=== PATIENT | female | born 1960 | race Caucasian/White ===

== ENCOUNTER 2018-04-01 17:11 | Inpatient (IN) | payer OTHER ==
[2018-04-01] MEDS ORDERED: ASPIRIN 81 MG PO STA (17:29)
[2018-04-01] MEDS ORDERED: SODIUM CHLORIDE 0.9% 1,000 ML IV STA (17:29)
[2018-04-01] MEDS: LORazepam 2 MG/ML INJ IV STA ×2 (17:39→19:03)
--- NOTE | 2018-04-01 17:40 | ED ---
General Adult HPI - General Stated complaint: CHEST PAIN, ASIYA Time Seen by Provider: 04/01/18 17:21 Source: patient, RN notes reviewed Limitations: no limitations - History of Present Illness Initial comments: Patient is a pleasant 58-year-old female presenting to the emergency Department with complaints of shortness of breath and discomfort of her upper back. Patient states it feels like spasms. Patient states there is some discomfortable chest as well. Patient is unclear if she feels anxious or not. Discomfort is waxing and waning. No cough. Patient has felt hot and cold however unclear if she has had any fevers. No nausea vomiting. No diaphoresis. - Related Data Home Medications Medication Instructions Recorded Confirmed Divalproex [Depakote] 500 mg PO BID 10/30/15 04/01/18 Folic Acid 1 mg PO DAILY 10/30/15 04/01/18 Cyanocobalamin [Vitamin B-12] 500 mcg PO DAILY 04/01/18 04/01/18 Allergies Allergy/AdvReac Type Severity Reaction Status Date / Time No Known Allergies Allergy Verified 04/01/18 17:47 Review of Systems ROS Statement: Those systems with pertinent positive or pertinent negative responses have been documented in the HPI. ROS Other: All systems not noted in ROS Statement are negative. 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 Absent: chest wall tenderness Cardiovascular Exam: Present: regular rate, normal rhythm Expanded Peripheral pulses: 2+: Radial (R), Radial (L), Posterior Tibialis (R), Posterior Tibialis (L), Dorsalis Pedis (R), Dorsalis Pedis (L) GI/Abdominal exam: Present: soft. Absent: tenderness Extremities exam: Present: normal inspection. Absent: pedal edema, calf tenderness Neurological exam: Present: alert Psychiatric exam: Present: anxious Skin exam: Present: normal color Course Vital Signs 04/01/18 04/01/18 04/01/18 17:23 17:30 18:00 Temperature 98.3 F Pulse Rate 102 H Respiratory 24 24 Rate Blood Pressure 187/110 162/117 O2 Sat by Pulse 95 Oximetry 04/01/18 04/01/18 04/01/18 18:20 18:40 19:29 Temperature Pulse Rate 95 Respiratory 15 Rate Blood Pressure 164/100 155/110 170/105 O2 Sat by Pulse 93 L Oximetry 04/01/18 19:32 Temperature Pulse Rate 99 Respiratory 16 Rate Blood Pressure 158/95 O2 Sat by Pulse 97 Oximetry - Reevaluation(s) Reevaluation #1: 04/01/18 19:30 Called by radiologist for large pneumothorax possible tension component. Patient transferred, day and chest tube placed immediately. EKG Findings - EKG Comments: EKG Findings:: Normal sinus rhythm 95. MN 116. QRS 88. QT 338. QTC 424. Normal axis. Right atrial enlargement. Normal QRS. Nonspecific ST-T. Procedures - Chest Tube Insertion Consent Obtained: emergent situation Side of Procedure: right Indication: Pneumothorax Placed on monitor/pulse oximetry: Yes Site Prep: Povidone-Iodine Local Anesthesia: Lidocaine 1% Insertion Site: 5th Intercostal Space (Anterior axillary line) Scalpel: #10 Open into Pleural Space Using: Trocar, Emilia Clamp Tube Size (Kyrgyz): 28 Returns: Air Sutured in Place: Yes Type of Suture: Nylon Dressing Applied: Petroleum Gauze Attached to Suction: Yes Repeat X-ray Results: Lung Inflated Patient Tolerated Procedure: well, no complications Medical Decision Making - Medical Decision Making Patient reevaluated and updated. Case was discussed with Dr. Zheng, covering for hospital call, who will admit. Case also discussed with Dr. Garcia who requests consult with cardiothoracic surgeon. He states he can be consult later if needed. Case was also discussed with Dr. powell, who will consult. - Lab Data Result diagrams: 04/01/18 17:35 04/01/18 17:35 Lab Results 04/01/18 04/01/18 04/01/18 Range/Units 17:35 17:35 17:35 WBC 13.3 H (3.8-10.6) k/uL RBC 4.74 (3.80-5.40) m/uL Hgb 16.4 H (11.4-16.0) gm/dL Hct 47.5 H (34.0-46.0) % MCV 100.3 H (80.0-100.0) fL MCH 34.6 (25.0-35.0) pg MCHC 34.5 (31.0-37.0) g/dL RDW 12.0 (11.5-15.5) % Plt Count 247 (150-450) k/uL Neutrophils % 81 % Lymphocytes % 11 % Monocytes % 6 % Eosinophils % 1 % Basophils % 0 % Neutrophils # 10.7 H (1.3-7.7) k/uL Lymphocytes # 1.5 (1.0-4.8) k/uL Monocytes # 0.7 (0-1.0) k/uL Eosinophils # 0.1 (0-0.7) k/uL Basophils # 0.0 (0-0.2) k/uL PT (9.0-12.0) sec INR (<1.2) APTT (22.0-30.0) sec D-Dimer (<0.60) mg/L FEU Sodium 128 L (137-145) mmol/L Potassium 4.6 (3.5-5.1) mmol/L Chloride 91 L (98-107) mmol/L Carbon Dioxide 27 (22-30) mmol/L Anion Gap 10 mmol/L BUN 6 L (7-17) mg/dL Creatinine 0.48 L (0.52-1.04) mg/dL Est GFR (CKD-EPI)AfAm >90 (>60 ml/min/1.73 sqM) Est GFR (CKD-EPI)NonAf >90 (>60 ml/min/1.73 sqM) Glucose 102 H (74-99) mg/dL Calcium 10.1 (8.4-10.2) mg/dL Magnesium 1.8 (1.6-2.3) mg/dL Total Bilirubin 0.8 (0.2-1.3) mg/dL AST 43 H (14-36) U/L ALT 27 (9-52) U/L Alkaline Phosphatase 105 (38-126) U/L Total Creatine Kinase 165 H (30-135) U/L CK-MB (CK-2) 2.8 H (0.0-2.4) ng/mL CK-MB (CK-2) Rel Index 1.7 Troponin I <0.012 (0.000-0.034) ng/mL NT-Pro-B Natriuret Pep pg/mL Total Protein 8.0 (6.3-8.2) g/dL Albumin 5.0 (3.5-5.0) g/dL Amylase 41 (30-110) U/L Lipase 30 (23-300) U/L 04/01/18 04/01/18 Range/Units 17:35 17:35 WBC (3.8-10.6) k/uL RBC (3.80-5.40) m/uL Hgb (11.4-16.0) gm/dL Hct (34.0-46.0) % MCV (80.0-100.0) fL MCH (25.0-35.0) pg MCHC (31.0-37.0) g/dL RDW (11.5-15.5) % Plt Count (150-450) k/uL Neutrophils % % Lymphocytes % % Monocytes % % Eosinophils % % Basophils % % Neutrophils # (1.3-7.7) k/uL Lymphocytes # (1.0-4.8) k/uL Monocytes # (0-1.0) k/uL Eosinophils # (0-0.7) k/uL Basophils # (0-0.2) k/uL PT 9.9 (9.0-12.0) sec INR 0.9 (<1.2) APTT 28.0 (22.0-30.0) sec D-Dimer <0.17 (<0.60) mg/L FEU Sodium (137-145) mmol/L Potassium (3.5-5.1) mmol/L Chloride (98-107) mmol/L Carbon Dioxide (22-30) mmol/L Anion Gap mmol/L BUN (7-17) mg/dL Creatinine (0.52-1.04) mg/dL Est GFR (CKD-EPI)AfAm (>60 ml/min/1.73 sqM) Est GFR (CKD-EPI)NonAf (>60 ml/min/1.73 sqM) Glucose (74-99) mg/dL Calcium (8.4-10.2) mg/dL Magnesium (1.6-2.3) mg/dL Total Bilirubin (0.2-1.3) mg/dL AST (14-36) U/L ALT (9-52) U/L Alkaline Phosphatase (38-126) U/L Total Creatine Kinase (30-135) U/L CK-MB (CK-2) (0.0-2.4) ng/mL CK-MB (CK-2) Rel Index Troponin I (0.000-0.034) ng/mL NT-Pro-B Natriuret Pep 417 pg/mL Total Protein (6.3-8.2) g/dL Albumin (3.5-5.0) g/dL Amylase (30-110) U/L Lipase (23-300) U/L - Radiology Data Radiology results: image reviewed (Chest x-ray shows pneumothorax on the right with tension component.) Critical Care Time Critical Care Time: Yes Total Critical Care Time: 32 Disposition Clinical Impression: Spontaneous pneumothorax Disposition: ADMITTED IP TO THIS [facility] Condition: Serious Referrals: Kelsea Veliz DO [Primary Care Provider] - 1-2 days Decision Time: 19:31
[2018-04-01 18:02] LABS: ALT 27 U/L (9-52); AST 43 U/L (14-36); Alkaline Phosphatase 105 U/L (38-126); Amylase 41 U/L (30-110); Anion Gap 10 mmol/L; Blood Urea Nitrogen 6 mg/dL (7-17); Calcium 10.1 mg/dL (8.4-10.2); Carbon Dioxide 27 mmol/L (22-30); Chloride 91 mmol/L (98-107); Glucose 102 mg/dL (74-99); Lipase 30 U/L (23-300); Magnesium 1.8 mg/dL (1.6-2.3); Potassium 4.6 mmol/L (3.5-5.1); Sodium 128 mmol/L (137-145); Total Bilirubin 0.8 mg/dL (0.2-1.3)
[2018-04-01 18:03] LABS: Creatine Kinase 165 U/L (30-135)
[2018-04-01 18:07] LABS: Basophils % (A) 0 %; Eosinophils # (A) 0.1 k/uL (0-0.7); Eosinophils % (A) 1 %; HCT 47.5 % (34.0-46.0); HGB 16.4 gm/dL (11.4-16.0); Lymphocytes # (A) 1.5 k/uL (1.0-4.8); Lymphocytes % (A) 11 %; MCH 34.6 pg (25.0-35.0); MCHC 34.5 g/dL (31.0-37.0); MCV 100.3 fL (80.0-100.0); Mean Platelet Volume 7.8; Monocytes # (A) 0.7 k/uL (0-1.0); Monocytes % (A) 6 %; Neutrophils # (A) 10.7 k/uL (1.3-7.7); Neutrophils % (A) 81 %; Platelet Count 247 k/uL (150-450); RBC 4.74 m/uL (3.80-5.40); WBC 13.3 k/uL (3.8-10.6)
[2018-04-01 18:08] LABS: D-Dimer <0.17 mg/L FEU (<0.60); INR 0.9 (<1.2); Prothrombin Time 9.9 sec (9.0-12.0)
[2018-04-01 18:16] LABS: Creatine Kinase MB 2.8 ng/mL (0.0-2.4); Troponin I <0.012 ng/mL (0.000-0.034)
--- NOTE | 2018-04-01 18:55 | XR ---
EXAMINATION: XR chest 2V DATE AND TIME: 04/01/2018 6:09 PM CLINICAL INDICATION: PHH; Chest Pain TECHNIQUE: Departmental protocol COMPARISON: None FINDINGS: There is a large right pneumothorax with mild shift of midline structures leftward. There is compress lindy atelectasis of the right lung parenchyma, near-complete. The left lung is clear. The left pleural space appears negative. Cardiomediastinal silhouette and bones and soft tissues are unremarkable. Results called at 6:51 PM to the ordering physician to ensure intact communications. IMPRESSION: TENSION PNEUMOTHORAX.
[2018-04-01] MEDS ORDERED: HYDROmorphone 1 MG/ML 1 ML SYRINGE IVP STA ×2 (19:50)
[2018-04-01] MEDS ORDERED: LIDOCAINE 1% INJ 10MG/ML (20 ML MDV) SQ ONE (19:53)
[2018-04-01] MEDS ORDERED: NALOXONE 0.4 MG/ML 1 ML VIAL IV PRN (19:58)
[2018-04-01] MEDS ORDERED: SODIUM CHLORIDE 0.9% 1,000 ML IV SCH (20:00)
[2018-04-01] MEDS ORDERED: HYDROmorphone 0.5 MG/0.5 ML SYRINGE IVP PRN (20:03)
--- NOTE | 2018-04-01 20:07 | XR ---
EXAMINATION: XR chest 1V portable DATE AND TIME: 04/01/2018 7:32 PM CLINICAL INDICATION: PHH; Pain TECHNIQUE: Departmental protocol COMPARISON: 04/01/2018 at 6:14 PM FINDINGS: Interval placement of right chest 2, with near complete removal of the right-sided pneumoth orax seen on the prior study. A mild pneumothorax can be visualized presently, measuring subcentimete r in the right apex and proximally 1-2 cm at the right costophrenic angle. Follow-up radiographs will clarify. There is no mediastinal shift. No new findings. IMPRESSION: Post chest tube radiograph: INTERVAL NEAR-RESOLUTION OF THE RIGHT PNEUMOTHORAX.
[2018-04-01] MEDS: DIVALPROEX 500 MG TABLET.DR PO SCH (23:01)
[2018-04-02] MEDS: HYDROmorphone 1 MG/ML 1 ML SYRINGE IVP PRN
[2018-04-02 05:47] VITALS: BMI 19.5
[2018-04-02] MEDS: DIVALPROEX 500 MG TABLET.DR PO SCH ×2 (07:50→21:25)
[2018-04-02] MEDS: KETOROLAC 30 MG/ML 1 ML VIAL IVP SCH ×3 (07:50→20:02)
--- NOTE | 2018-04-02 08:21 | XR ---
EXAMINATION TYPE: XR chest 1V portable DATE OF EXAM: 04/02/2018 COMPARISON: 04/01/2018 HISTORY: Spontaneous pneumothorax TECHNIQUE: Single frontal view of the chest is obtained. FINDINGS: Right-sided thoracostomy tube is present. There is a small apical right pneumothorax remai francisco estimated at approximately 5-10%. Minimal right basilar atelectasis is seen of the hemidiaphragm . Remainder the lungs are clear. No left-sided pneumothorax. Cardia mediastinal silhouette is within normal limits. Osseous structures are grossly intact. IMPRESSION: Small residual right apical pneumothorax status post right thoracostomy tube placement.
--- NOTE | 2018-04-02 10:37 | P.GSCN ---
<Joi Duron - Last Filed: 04/02/18 10:24> History of Present Illness Consult date: 04/02/18 Reason for Consult: Right-sided spontaneous pneumothorax, surgical management. Requesting physician: Jhonatan Early History of present illness: This is a 58-year-old active female patient who follows with Dr. Kelsea Veliz on an outpatient basis although she does state she doesn't go to the doctor very often. She has a previous medical history of plasma cell granuloma with resection in 2008, previous tobacco dependence with cessation in 2008 but prior to that smoked 1-1/2-2 packs a day for 31 years, daily EtOH use, and tonsillectomy. Apparently she was at home yesterday doing nothing in particular , no forceful coughing, no sneezing when she began to have significant shortness of breath and chest pain as well as right upper back pain. She denied any nausea, vomiting, syncope. She reported to [facility] emergency room. X-ray was completed demonstrating significant right-sided pneumothorax. Chest tube was inserted by the emergency room physicians with almost complete re-expansion of her right lung. Dr. Senior from cardiothoracic surgery was consulted regarding pneumothorax management. Review of Systems Review of systems completed and was negative except as noted. 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 Past Anesthesia/Blood Transfusion Reactions: No Reported Reaction Past Psychological History: No Psychological Hx Reported Smoking Status: Former smoker Past Alcohol Use History: Daily Past Drug Use History: None Reported Medications and Allergies Home Medications Medication Instructions Recorded Confirmed Type Divalproex [Depakote] 500 mg PO BID 10/30/15 04/01/18 History Folic Acid 1 mg PO DAILY 10/30/15 04/01/18 History Cyanocobalamin [Vitamin B-12] 500 mcg PO DAILY 04/01/18 04/01/18 History Allergies Allergy/AdvReac Type Severity Reaction Status Date / Time No Known Allergies Allergy Verified 04/01/18 17:47 Surgical - Exam Vital Signs Temp Pulse Resp BP Pulse Ox 98.3 F 102 H 24 187/110 95 04/01/18 17:23 04/01/18 17:23 04/01/18 17:23 04/01/18 17:23 04/01/18 17:23 - General Mild pain well developed, well nourished, no distress - Eyes PERRL, normal ocular movement - ENT no hearing loss - Neck no masses, no bruits, trachea midline - Respiratory Lungs sounds diminished bilaterally. Respirations even, nonlabored. Currently on 2 L nasal cannula with oxygen saturation 100%. Right-sided pleural chest tube present to continuous wall suction, minimal serosanguineous output, no air leak present. - Cardiovascular S1, S2 present. Regular rate and rhythm. Palpable peripheral pulses bilaterally. No edema present. No calf pain or tenderness noted. - Abdomen Abdomen: soft, non tender, bowel sounds - Genitourinary Deferred - Rectum Deferred - Integumentary no rash, no growths, no abnormal pigmentation - Neurologic normal coordination, normal sensation - Musculoskeletal normal posture - Psychiatric oriented to time, oriented to person, oriented to place, speech is normal, memory intact Results - Labs 04/01/18 17:35 04/01/18 17:35 Abnormal Lab Results - Last 24 Hours (Table) 04/01/18 04/01/18 04/01/18 Range/Units 17:35 17:35 17:35 WBC 13.3 H (3.8-10.6) k/uL Hgb 16.4 H (11.4-16.0) gm/dL Hct 47.5 H (34.0-46.0) % MCV 100.3 H (80.0-100.0) fL Neutrophils # 10.7 H (1.3-7.7) k/uL Sodium 128 L (137-145) mmol/L Chloride 91 L (98-107) mmol/L BUN 6 L (7-17) mg/dL Creatinine 0.48 L (0.52-1.04) mg/dL Glucose 102 H (74-99) mg/dL AST 43 H (14-36) U/L Total Creatine Kinase 165 H (30-135) U/L CK-MB (CK-2) 2.8 H (0.0-2.4) ng/mL Diabetes panel 04/01/18 Range/Units 17:35 Sodium 128 L (137-145) mmol/L Potassium 4.6 (3.5-5.1) mmol/L Chloride 91 L (98-107) mmol/L Carbon Dioxide 27 (22-30) mmol/L BUN 6 L (7-17) mg/dL Creatinine 0.48 L (0.52-1.04) mg/dL Glucose 102 H (74-99) mg/dL Calcium 10.1 (8.4-10.2) mg/dL AST 43 H (14-36) U/L ALT 27 (9-52) U/L Alkaline Phosphatase 105 (38-126) U/L Total Protein 8.0 (6.3-8.2) g/dL Albumin 5.0 (3.5-5.0) g/dL Calcium panel 04/01/18 Range/Units 17:35 Calcium 10.1 (8.4-10.2) mg/dL Albumin 5.0 (3.5-5.0) g/dL Pituitary panel 04/01/18 Range/Units 17:35 Sodium 128 L (137-145) mmol/L Potassium 4.6 (3.5-5.1) mmol/L Chloride 91 L (98-107) mmol/L Carbon Dioxide 27 (22-30) mmol/L BUN 6 L (7-17) mg/dL Creatinine 0.48 L (0.52-1.04) mg/dL Glucose 102 H (74-99) mg/dL Calcium 10.1 (8.4-10.2) mg/dL Adrenal panel 04/01/18 Range/Units 17:35 Sodium 128 L (137-145) mmol/L Potassium 4.6 (3.5-5.1) mmol/L Chloride 91 L (98-107) mmol/L Carbon Dioxide 27 (22-30) mmol/L BUN 6 L (7-17) mg/dL Creatinine 0.48 L (0.52-1.04) mg/dL Glucose 102 H (74-99) mg/dL Calcium 10.1 (8.4-10.2) mg/dL Total Bilirubin 0.8 (0.2-1.3) mg/dL AST 43 H (14-36) U/L ALT 27 (9-52) U/L Alkaline Phosphatase 105 (38-126) U/L Total Protein 8.0 (6.3-8.2) g/dL Albumin 5.0 (3.5-5.0) g/dL - Imaging Chest x-ray: report reviewed, image reviewed Assessment and Plan (1) Tobacco dependence in remission Current Visit: No Status: Resolved Code(s): F17.201 - NICOTINE DEPENDENCE, UNSPECIFIED, IN REMISSION SNOMED Code(s): 001345404 (2) Alcohol use Current Visit: Yes Status: Chronic Code(s): Z78.9 - OTHER SPECIFIED HEALTH STATUS SNOMED Code(s): 599410 (3) Spontaneous pneumothorax Current Visit: Yes Status: Acute Code(s): J93.83 - OTHER PNEUMOTHORAX SNOMED Code(s): 49468395 Plan: The patient was seen and examined at the bedside with Dr. Simon. Chart/ diagnostics were reviewed in detail. Currently there is no air leak in the right-sided pleural chest tube and the lung has almost completely re-expandedx. We placed the chest tube to waterseal. Repeat chest x-ray in the morning, if stable will discontinue chest tube tomorrow. Toradol added to her pain medication regimen for better control. Wean O2 as tolerated. Hep-Lock IV. Increase activity ambulate as tolerated. Incentive spirometry was ordered and should be encouraged 10 times every hour while awake. As this is the first incidence of spontaneous pneumothorax the appropriate treatment is chest tube placement. Should patient develop another pneumothorax in the future surgical management would be offered to the patient. This was discussed in detail with the patient and her , all questions were answered. Continue medical management per primary care service. More recommendations to follow. Thank you for this consult. Please call us with any questions. Time with Patient: Greater than 30 <Marek Simon R - Last Filed: 04/02/18 14:48> Surgical - Exam Vital Signs Temp Pulse Resp BP Pulse Ox 98.3 F 102 H 24 187/110 95 04/01/18 17:23 04/01/18 17:23 04/01/18 17:23 04/01/18 17:23 04/01/18 17:23 Results - Labs 04/01/18 17:35 04/01/18 17:35 Abnormal Lab Results - Last 24 Hours (Table) 04/01/18 04/01/18 04/01/18 Range/Units 17:35 17:35 17:35 WBC 13.3 H (3.8-10.6) k/uL Hgb 16.4 H (11.4-16.0) gm/dL Hct 47.5 H (34.0-46.0) % MCV 100.3 H (80.0-100.0) fL Neutrophils # 10.7 H (1.3-7.7) k/uL Sodium 128 L (137-145) mmol/L Chloride 91 L (98-107) mmol/L BUN 6 L (7-17) mg/dL Creatinine 0.48 L (0.52-1.04) mg/dL Glucose 102 H (74-99) mg/dL AST 43 H (14-36) U/L Total Creatine Kinase 165 H (30-135) U/L CK-MB (CK-2) 2.8 H (0.0-2.4) ng/mL Diabetes panel 04/01/18 Range/Units 17:35 Sodium 128 L (137-145) mmol/L Potassium 4.6 (3.5-5.1) mmol/L Chloride 91 L (98-107) mmol/L Carbon Dioxide 27 (22-30) mmol/L BUN 6 L (7-17) mg/dL Creatinine 0.48 L (0.52-1.04) mg/dL Glucose 102 H (74-99) mg/dL Calcium 10.1 (8.4-10.2) mg/dL AST 43 H (14-36) U/L ALT 27 (9-52) U/L Alkaline Phosphatase 105 (38-126) U/L Total Protein 8.0 (6.3-8.2) g/dL Albumin 5.0 (3.5-5.0) g/dL Calcium panel 04/01/18 Range/Units 17:35 Calcium 10.1 (8.4-10.2) mg/dL Albumin 5.0 (3.5-5.0) g/dL Pituitary panel 04/01/18 Range/Units 17:35 Sodium 128 L (137-145) mmol/L Potassium 4.6 (3.5-5.1) mmol/L Chloride 91 L (98-107) mmol/L Carbon Dioxide 27 (22-30) mmol/L BUN 6 L (7-17) mg/dL Creatinine 0.48 L (0.52-1.04) mg/dL Glucose 102 H (74-99) mg/dL Calcium 10.1 (8.4-10.2) mg/dL Adrenal panel 04/01/18 Range/Units 17:35 Sodium 128 L (137-145) mmol/L Potassium 4.6 (3.5-5.1) mmol/L Chloride 91 L (98-107) mmol/L Carbon Dioxide 27 (22-30) mmol/L BUN 6 L (7-17) mg/dL Creatinine 0.48 L (0.52-1.04) mg/dL Glucose 102 H (74-99) mg/dL Calcium 10.1 (8.4-10.2) mg/dL Total Bilirubin 0.8 (0.2-1.3) mg/dL AST 43 H (14-36) U/L ALT 27 (9-52) U/L Alkaline Phosphatase 105 (38-126) U/L Total Protein 8.0 (6.3-8.2) g/dL Albumin 5.0 (3.5-5.0) g/dL Assessment and Plan Assessment: 58 yof w Rt sided spontaneous pneumothorax, s/p CT plcmt in ER. Lung well expanded now. No previous h/o ptx in past. No air leak at this time. Met with and examined patient, agree w [employer] note as documented. Natural h/o ptx d/w pt and . Conservative mgmt at present.
--- NOTE | 2018-04-02 11:36 | P.CNPUL ---
History of Present Illness Consult date: 04/02/18 Requesting physician: Major Zheng Reason for consult: dyspnea, abnormal CXR/CT Chief complaint: Shortness of breath, right shoulder pain History of present illness: This is a very pleasant 58-year-old female patient who follows with Dr. Horton as her primary care physician. History of seizure disorder with previous craniotomy in 2008. She does have a 25+ year smoking history however quit 10 years ago. Daily alcohol consumption. She presented here to the emergency room yesterday with complaints of shortness of breath and right shoulder and chest pain. She is found to have a large spontaneous pneumothorax. Status post chest tube insertion. She is seen today in consultation on the regular medical floor. She is awake and alert in no acute distress. Chest tube remains in place. There is currently a leak. Placed to waterseal. Cardiothoracic is following. She is currently maintaining good O2 saturations in the 90s on room air. She's afebrile. Hemodynamically stable. White count 13.3. Hemoglobin 16.4. MCV 100.3. Sodium 128. Creatinine 0.48. AST 43. Review of Systems Constitutional: Denies chills, Denies fever Eyes: denies blurred vision, denies decreased vision Ears: deny: decreased hearing Ears, nose, mouth and throat: Denies headache, Denies sore throat Cardiovascular: Reports dyspnea on exertion, Reports shortness of breath Respiratory: Reports dyspnea, Reports pain Gastrointestinal: Denies abdominal pain, Denies diarrhea, Denies nausea, Denies vomiting Genitourinary: Denies dysuria, Denies hematuria Musculoskeletal: Denies myalgias Integumentary: Denies pruritus, Denies rash Neurological: Denies numbness, Denies weakness Psychiatric: Denies anxiety, Denies depression Endocrine: Denies fatigue, Denies weight change Hematologic/Lymphatic: Reports as per HPI Allergic/Immunologic: Reports as per HPI 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 History of Any Multi-Drug Resistant Organisms: None Reported Past Surgical History: Tonsillectomy Additional Past Surgical History / Comment(s): biopsy, craniomtomy to remov tumor from brain 2008 Past Anesthesia/Blood Transfusion Reactions: No Reported Reaction Past Psychological History: No Psychological Hx Reported Smoking Status: Former smoker Past Alcohol Use History: Daily Past Drug Use History: None Reported Medications and Allergies Home Medications Medication Instructions Recorded Confirmed Type Divalproex [Depakote] 500 mg PO BID 10/30/15 04/01/18 History Folic Acid 1 mg PO DAILY 10/30/15 04/01/18 History Cyanocobalamin [Vitamin B-12] 500 mcg PO DAILY 04/01/18 04/01/18 History Allergies Allergy/AdvReac Type Severity Reaction Status Date / Time No Known Allergies Allergy Verified 04/01/18 17:47 Physical Exam Vitals: Vital Signs Temp Pulse Pulse Resp BP BP Pulse Ox 04/02/18 10:10 18 04/02/18 07:58 12 04/02/18 07:33 97.9 F 79 18 158/88 100 04/01/18 21:52 97.5 F L 77 12 170/96 100 04/01/18 20:15 83 14 163/96 100 04/01/18 19:32 99 16 158/95 97 04/01/18 19:29 95 15 170/105 93 L 04/01/18 19:03 93 12 177/111 91 L 04/01/18 18:40 155/110 04/01/18 18:20 164/100 04/01/18 18:00 162/117 04/01/18 17:30 24 04/01/18 17:23 98.3 F 102 H 24 187/110 95 Intake and Output 04/01/18 04/02/18 04/02/18 22:59 06:59 14:59 Other: # Voids 2 Weight 49.895 kg - Constitutional General appearance: disheveled, no acute distress, thin - EENT Eyes: EOMI, PERRLA ENT: hearing grossly normal Ears: bilateral: normal - Neck Neck: normal ROM Carotids: bilateral: upstroke normal Thyroid: bilateral: normal size - Respiratory Respiratory: right: diminished - Cardiovascular Rhythm: regular Heart sounds: normal: S1, S2 - Gastrointestinal General gastrointestinal: no organomegaly, soft, no tenderness - Integumentary Integumentary: normal turgor - Neurologic Neurologic: CNII-XII intact - Musculoskeletal Musculoskeletal: gait normal - Psychiatric Psychiatric: A&O x's 3, appropriate affect, intact judgment & insight Results - Laboratory Findings CBC and BMP: 04/01/18 17:35 04/01/18 17:35 PT/INR, D-dimer PT 9.9 sec (9.0-12.0) 04/01/18 17:35 INR 0.9 (<1.2) 04/01/18 17:35 D-Dimer <0.17 mg/L FEU (<0.60) 04/01/18 17:35 Abnormal lab findings: Abnormal Labs 04/01/18 04/01/18 04/01/18 17:35 17:35 17:35 WBC 13.3 H Hgb 16.4 H Hct 47.5 H MCV 100.3 H Neutrophils # 10.7 H Sodium 128 L Chloride 91 L BUN 6 L Creatinine 0.48 L Glucose 102 H AST 43 H Total Creatine Kinase 165 H CK-MB (CK-2) 2.8 H - Diagnostic Findings Chest x-ray: image reviewed Assessment and Plan Assessment: Impression: #1 Dyspnea secondary to a large right spontaneous pneumothorax. Status post right-sided chest tube placement. #2 History of chronic tobacco dependence of approximately 25 years however quit 10 years ago. #3 Daily alcohol use. #4 History of brain tumor status post craniotomy. #5 History of seizures. #6 Hyponatremia suspect secondary to alcohol consumption. Plan: The patient was seen and evaluated by Dr. Garcia. Chest x-ray and labs reviewed. Right-sided chest tube still with a small air leak today. Currently on water seal. Plan for repeat chest x-ray in the a.m. Cardiothoracic are following. May require surgical intervention if any recurrence in the future. She could be followed up in our office or rigidity performed full pulmonary function testing and possible computed tomography scan of the chest to evaluate the severity of her COPD rule out any significant bleb formation. Encourage increased use the incentive spirometer. Increase activity as tolerated. Observe for alcohol withdrawal symptoms. We will continue to follow and make further recommendations based on her clinical status. I, the cosigning physician, performed a history & physical examination of the patient. Lungs sounds diminished more so on the right base. Maintaining good O2 saturations in the 90s on room air. I discussed the assessment and plan of care with my nurse practitioner, Swati Dennis. I attest to the above note as dictated by her. Time with Patient: Greater than 30
--- NOTE | 2018-04-02 13:04 | P.HPIM ---
History of Present Illness 58-year-old female with extensive smoking history 25+ years smoking history quit 10 years ago never was diagnosed with COPD came in with complaints of chest pain, severe sharp pleuritic in nature along with severe shortness of breath progressively worsened over day yesterday patient is found to have large right-sided pneumothorax patient had a chest tube which was now underwater seal patient has right-sided chest tube. Repeat chest x-ray shows significant improvement in the pneumothorax. Patient does drink alcohol on a daily basis presently appears to have mild withdrawals patient is on Ativan CIWA protocol patient drinks about 4 beers per day. Patient has elevated MCV from my alcohol abuse. She is chest pain significantly improved as mild discomfort due to chest tube. She was a little denied any short of breath cough. Review of Systems REVIEW OF SYSTEMS: CONSTITUTIONAL: No fever, no malaise, no fatigue. HEENT: No recent visual problems or hearing problems. Denied any sore throat. CARDIOVASCULAR: No orthopnea, PND, no palpitations, no syncope. PULMONARY: no cough, no hemoptysis. GASTROINTESTINAL: No diarrhea, no nausea, no vomiting, no abdominal pain. NEUROLOGICAL: No headaches, no weakness, no numbness. HEMATOLOGICAL: Denies any bleeding or petechiae. GENITOURINARY: Denies any burning micturition, frequency, or urgency. MUSCULOSKELETAL/RHEUMATOLOGICAL: Denies any joint pain, swelling, or any muscle pain. ENDOCRINE: Denies any polyuria or polydipsia. The rest of the 14-point review of systems is negative. 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 History of Any Multi-Drug Resistant Organisms: None Reported Past Surgical History: Tonsillectomy Additional Past Surgical History / Comment(s): biopsy, craniomtomy to remov tumor from brain 2008 Past Anesthesia/Blood Transfusion Reactions: No Reported Reaction Past Psychological History: No Psychological Hx Reported Smoking Status: Former smoker Past Alcohol Use History: Daily Past Drug Use History: None Reported Medications and Allergies Home Medications Medication Instructions Recorded Confirmed Type Divalproex [Depakote] 500 mg PO BID 10/30/15 04/01/18 History Folic Acid 1 mg PO DAILY 10/30/15 04/01/18 History Cyanocobalamin [Vitamin B-12] 500 mcg PO DAILY 04/01/18 04/01/18 History Allergies Allergy/AdvReac Type Severity Reaction Status Date / Time No Known Allergies Allergy Verified 04/01/18 17:47 Physical Exam Vitals: Vital Signs Temp Pulse Pulse Resp BP BP Pulse Ox 04/02/18 10:10 18 04/02/18 07:58 12 04/02/18 07:33 97.9 F 79 18 158/88 100 04/01/18 21:52 97.5 F L 77 12 170/96 100 04/01/18 20:15 83 14 163/96 100 04/01/18 19:32 99 16 158/95 97 04/01/18 19:29 95 15 170/105 93 L 04/01/18 19:03 93 12 177/111 91 L 04/01/18 18:40 155/110 04/01/18 18:20 164/100 04/01/18 18:00 162/117 04/01/18 17:30 24 04/01/18 17:23 98.3 F 102 H 24 187/110 95 Intake and Output 04/01/18 04/02/18 04/02/18 22:59 06:59 14:59 Other: # Voids 2 Weight 49.895 kg PHYSICAL EXAMINATION: GENERAL: The patient is alert and oriented x3, not in any acute distress. Well developed, well nourished. HEENT: Pupils are round and equally reacting to light. EOMI. No scleral icterus. No conjunctival pallor. Normocephalic, atraumatic. No pharyngeal erythema. No thyromegaly. CARDIOVASCULAR: S1 and S2 present. No murmurs, rubs, or gallops. PULMONARY: Chest is clear to auscultation, no wheezing or crackles. ABDOMEN: Soft, nontender, nondistended, normoactive bowel sounds. No palpable organomegaly. MUSCULOSKELETAL: No joint swelling or deformity. EXTREMITIES: No cyanosis, clubbing, or pedal edema. NEUROLOGICAL: Gross neurological examination did not reveal any focal deficits. SKIN: No rashes. Results CBC & Chem 7: 04/01/18 17:35 04/01/18 17:35 Labs: Abnormal Lab Results - Last 24 Hours (Table) 04/01/18 04/01/18 04/01/18 Range/Units 17:35 17:35 17:35 WBC 13.3 H (3.8-10.6) k/uL Hgb 16.4 H (11.4-16.0) gm/dL Hct 47.5 H (34.0-46.0) % MCV 100.3 H (80.0-100.0) fL Neutrophils # 10.7 H (1.3-7.7) k/uL Sodium 128 L (137-145) mmol/L Chloride 91 L (98-107) mmol/L BUN 6 L (7-17) mg/dL Creatinine 0.48 L (0.52-1.04) mg/dL Glucose 102 H (74-99) mg/dL AST 43 H (14-36) U/L Total Creatine Kinase 165 H (30-135) U/L CK-MB (CK-2) 2.8 H (0.0-2.4) ng/mL Thrombosis Risk Factor Assmnt - Choose All That Apply Any of the Below Risk Factors Present?: Yes Each Factor Represents 1 point: Age 41-60 years Other Risk Factors: No Thrombosis Risk Factor Assessment Total Risk Factor Score: 1 Thrombosis Risk Factor Assessment Level: Low Risk Assessment and Plan Plan: -Large right-sided pneumothorax: Patient is status post chest tube placement patient may have emphysema which was never diagnosed and may have ruptured a pleural bleb. Patient is feeling well at this time. 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: Patient will be started on IV fluids will recheck the basic metabolic profile tomorrow -Macrocytosis: Secondary to alcohol abuse patient will be started on thiamine multivitamin supplementation -Alcohol withdrawal: Patient will be started on CIWA protocol patient is willing to quit alcohol -Elevated hematocrit: Secondary to hemoconcentration expected to improve with IV fluids -Leukocytosis reactive secondary to pneumothorax
[2018-04-02] MEDS: SODIUM CHLORIDE 0.9% 1,000 ML IV SCH ×2 (16:26→22:14)
[2018-04-03] MEDS: KETOROLAC 30 MG/ML 1 ML VIAL IVP SCH ×5 (00:35→23:50)
[2018-04-03] MEDS: DIVALPROEX 500 MG TABLET.DR PO SCH ×2 (08:02→22:03)
[2018-04-03] MEDS: SODIUM CHLORIDE 0.9% 1,000 ML IV SCH ×2 (08:10→22:11)
--- NOTE | 2018-04-03 08:40 | XR ---
EXAMINATION TYPE: XR chest 2V DATE OF EXAM: 04/03/2018 COMPARISON: Prior chest x-ray 04/02/2018 HISTORY: Chest tube, pneumothorax TECHNIQUE: Frontal and lateral views of the chest are obtained. FINDINGS: Patient is rotated. Findings similar to prior exam. Small apical pneumothorax on the right is noted, there is right-sided chest tube. There is blunting of the right costophrenic angle, overly ing subcutaneous emphysema. Heart is stable. Left lung unchanged. IMPRESSION: Apical right pneumothorax, chest tube in place. There may be small effusion and associat ed basilar atelectasis. Follow-up is recommended.
[2018-04-03 08:56] LABS: Anion Gap 5 mmol/L; Blood Urea Nitrogen 6 mg/dL (7-17); Calcium 9.3 mg/dL (8.4-10.2); Carbon Dioxide 29 mmol/L (22-30); Chloride 99 mmol/L (98-107); Glucose 87 mg/dL (74-99); Potassium 4.4 mmol/L (3.5-5.1); Sodium 133 mmol/L (137-145)
[2018-04-03 09:06] LABS: HCT 39.9 % (34.0-46.0); HGB 13.8 gm/dL (11.4-16.0); MCH 35.8 pg (25.0-35.0); MCHC 34.5 g/dL (31.0-37.0); MCV 103.6 fL (80.0-100.0); Macrocytosis Slight; Mean Platelet Volume 7.5; Platelet Count 193 k/uL (150-450); RBC 3.85 m/uL (3.80-5.40); RDW 11.9 % (11.5-15.5); WBC 7.8 k/uL (3.8-10.6)
--- NOTE | 2018-04-03 12:04 | P.PN ---
Subjective Progress Note Date: 04/03/18 Principal diagnosis: Spontaneous right-sided pneumothorax. This is a very pleasant 58-year-old female patient who follows with Dr. Horton as her primary care physician. History of seizure disorder with previous craniotomy in 2008. She does have a 25+ year smoking history however quit 10 years ago. Daily alcohol consumption. She presented here to the emergency room yesterday with complaints of shortness of breath and right shoulder and chest pain. She is found to have a large spontaneous pneumothorax. Status post chest tube insertion. She is seen today in consultation on the regular medical floor. She is awake and alert in no acute distress. Chest tube remains in place. There is currently a leak. Placed to waterseal. Cardiothoracic is following. She is currently maintaining good O2 saturations in the 90s on room air. She's afebrile. Hemodynamically stable. White count 13.3. Hemoglobin 16.4. MCV 100.3. Sodium 128. Creatinine 0.48. AST 43. Patient is seen again today 04/03/2018 in follow-up on the regular medical floor. She is awake and alert in no acute distress. Maintaining good O2 saturations in the 90s on room air. Currently sitting up in a chair at the bedside. He denies any worsening shortness of breath, cough or congestion. Today's chest x-ray revealed a small right apical pneumothorax. Chest tube is in place. Currently clamped per CT services. Objective - Vital Signs Vital signs: Vital Signs Temp 98.3 F 04/03/18 06:11 Pulse 85 04/03/18 06:11 Resp 17 04/03/18 06:11 BP 171/94 04/03/18 06:11 Pulse Ox 96 04/03/18 06:11 Intake & Output 04/02/18 04/03/18 04/03/18 18:59 06:59 18:59 Intake Total 850 Output Total 0 Balance 850 Intake: Oral 850 Output: Chest Tube Drainage 0 Chest Tube Right Mid- 0 Axillary Chest Other: Voiding Method Toilet Toilet # Voids 3 2 - Exam GENERAL EXAM: Alert, active, comfortable in no apparent distress. On room air. HEAD: Normocephalic. EYES: Normal reaction of pupils, equal size. NOSE: Clear with pink turbinates. THROAT: No erythema or exudates. NECK: No masses, no JVD. CHEST: No chest wall deformity. Right-sided chest tube in place. LUNGS: Equal air entry with no crackles, wheeze, rhonchi or dullness. CVS: S1 and S2 normal with no audible murmur, regular rhythm. ABDOMEN: No hepatosplenomegaly, normal bowel sounds, no guarding or rigidity. SPINE: No scoliosis or deformity SKIN: No rashes CENTRAL NERVOUS SYSTEM: No focal deficits, tone is normal in all 4 extremities. EXTREMITIES: There is no peripheral edema. No clubbing, no cyanosis. Peripheral pulses are intact. - Labs CBC & Chem 7: 04/03/18 08:02 04/03/18 08:02 Labs: Abnormal Lab Results - Last 24 Hours (Table) 04/03/18 04/03/18 Range/Units 08:02 08:02 MCV 103.6 H (80.0-100.0) fL MCH 35.8 H (25.0-35.0) pg Sodium 133 L (137-145) mmol/L BUN 6 L (7-17) mg/dL Creatinine 0.51 L (0.52-1.04) mg/dL Assessment and Plan Assessment: Impression: #1 Dyspnea secondary to a large right spontaneous pneumothorax. Status post right-sided chest tube placement. Currently clamped. Follow-up chest x-ray pending. #2 History of chronic tobacco dependence of approximately 25 years however quit 10 years ago. #3 Daily alcohol use. #4 History of brain tumor status post craniotomy. #5 History of seizures. #6 Hyponatremia suspect secondary to alcohol consumption. Plan: The patient was seen and evaluated by Dr. Garcia. Chest x-ray and labs reviewed. Right-sided chest tube currently clamped. Follow-up chest x-ray is pending. The patient is anxious to go home once cleared by CT services and chest tube removed. She could be followed up in our office where we could perform full pulmonary function testing to evaluate the severity of her COPD. I, the cosigning physician, performed a history & physical examination of the patient. Lungs sounds clear, diminished. Maintaining good O2 saturations in the 90s on room air. I discussed the assessment and plan of care with my nurse practitioner, Swati Dennis. I attest to the above note as dictated by her.
[2018-04-03] MEDS: MULTIVITAMINS, THERA 1 EACH TAB PO SCH (12:21)
[2018-04-03] MEDS: THIAMINE 100 MG TAB PO SCH (12:21)
--- NOTE | 2018-04-03 12:40 | XR ---
EXAMINATION TYPE: XR chest 2V DATE OF EXAM: 04/03/2018 COMPARISON: Prior chest x-ray same dated earlier time HISTORY: Chest tube, pneumothorax TECHNIQUE: Frontal and lateral views of the chest are obtained. FINDINGS: There is improvement in patient's apical pneumothorax. Right-sided chest tube remains in p lace. There is blunting the right costophrenic angle. IMPRESSION: Only minimal residual pneumothorax seen at the apex level of the right hemithorax.
--- NOTE | 2018-04-03 15:28 | P.PN ---
Subjective Progress Note Date: 04/03/18 Principal diagnosis: Right-sided spontaneous pneumothorax. Previous medical history of plasma cell granuloma resection in 2009 and subsequent seizures, previous tobacco dependence , COPD, daily EtOH use. The patient is currently ambulating in the hallway in no acute distress. Does state that pain is controlled on current medication regimen. Chest tube was placed to waterseal yesterday and clamped this morning. No new complaints except she would like to go home. Objective - Vital Signs Vital signs: Vital Signs Temp 97.7 F 04/03/18 14:46 Pulse 103 H 04/03/18 14:46 Resp 16 04/03/18 14:59 BP 157/97 04/03/18 14:46 Pulse Ox 97 04/03/18 14:46 Intake & Output 04/02/18 04/03/18 04/03/18 18:59 06:59 18:59 Intake Total 850 200 Output Total 0 Balance 850 200 Intake: Oral 850 200 Output: Chest Tube Drainage 0 Chest Tube Right Mid- 0 Axillary Chest Other: Voiding Method Toilet Toilet # Voids 3 2 2 - Constitutional General appearance: Present: cooperative, no acute distress, thin - Respiratory Details: Lungs sounds diminished bilaterally. Respirations even, nonlabored. Currently on room air with oxygen saturation 96%. Right pleural chest tube was to waterseal this morning and then clamped, no drainage in the last 24 hours. No air leak present. - Cardiovascular Details: S1, S2 present. Regular rate and rhythm. Palpable peripheral pulses bilaterally. No edema present. No calf tenderness noted. - Gastrointestinal Gastrointestinal Comment(s): Abdomen soft, nontender, nondistended. Active bowel sounds 4 quadrants. Tolerating diet. - Genitourinary Genitourinary Comment(s): Continues to void clear, yellow urine. - Integumentary Integumentary Comment(s): Skin is warm and dry with evidence of good perfusion. Right pleural chest tube dressing dry and intact. - Neurologic Neurologic: Present: CNII-XII intact - Musculoskeletal Musculoskeletal: Present: gait normal, strength equal bilaterally - Psychiatric Psychiatric: Present: A&O x's 3, appropriate affect, intact judgment & insight - Allied health notes Allied health notes reviewed: nursing - Labs CBC & Chem 7: 04/03/18 08:02 04/03/18 08:02 Labs: Abnormal Lab Results - Last 24 Hours (Table) 04/03/18 04/03/18 Range/Units 08:02 08:02 MCV 103.6 H (80.0-100.0) fL MCH 35.8 H (25.0-35.0) pg Sodium 133 L (137-145) mmol/L BUN 6 L (7-17) mg/dL Creatinine 0.51 L (0.52-1.04) mg/dL - Imaging and Cardiology Chest x-ray: report reviewed, image reviewed Assessment and Plan (1) Tobacco dependence in remission Current Visit: No Status: Resolved Code(s): F17.201 - NICOTINE DEPENDENCE, UNSPECIFIED, IN REMISSION SNOMED Code(s): 634376997 (2) Alcohol use Current Visit: Yes Status: Chronic Code(s): Z78.9 - OTHER SPECIFIED HEALTH STATUS SNOMED Code(s): 692663 (3) Spontaneous pneumothorax Current Visit: Yes Status: Acute Code(s): J93.83 - OTHER PNEUMOTHORAX SNOMED Code(s): 11049512 Plan: 1. Chest tube was placed to waterseal yesterday, this morning chest x-ray was reviewed and a chest tube was clamped. A repeat chest x-ray demonstrated improvement in her remaining right apical pneumothorax. Patient has had no air leak. Chest tube was discontinued without incident. Dressing should remain for 48 hours. May reinforce if dressing becomes saturated. 2. Repeat chest x-ray in the morning. If stable may discharged home tomorrow from our standpoint. 3. Pain control with current medication regimen. 4. Encourage incentive spirometry 10 times every hour while awake. 5. Encourage continued smoking cessation. 6. Patient was counseled that if pneumothorax occurs again the patient would be offered surgical intervention. 7. More recommendations to follow. Time with Patient: Greater than 30
[2018-04-03] MEDS ORDERED: ALPRAZolam 0.25 MG TAB PO STA (18:15)
--- NOTE | 2018-04-03 18:31 | XR ---
EXAMINATION TYPE: XR chest 2V DATE OF EXAM: 04/03/2018 COMPARISON: Today HISTORY: Short of breath TECHNIQUE: Frontal and lateral views of the chest are obtained. FINDINGS: There is an approximate 70% right pneumothorax. Heart and mediastinum are normal. There is fluid level at the right lung base. Left lung is clear. IMPRESSION: Large right-sided hydropneumothorax that is significantly increased compared to exam ear lier today. There is been removal of the right-sided chest tube. Attempts were made to notify the ernestina or. This was unsuccessful.
[2018-04-03] MEDS ORDERED: hydrALAZINE HCL 20 MG/ML 1 ML VIAL IVP STA (19:00)
--- NOTE | 2018-04-03 19:34 | XR ---
EXAMINATION TYPE: XR chest 1V portable DATE OF EXAM: 04/03/2018 COMPARISON: Today HISTORY: Chest tube insertion TECHNIQUE: Single frontal view of the chest is obtained. FINDINGS: There is a new right-sided chest tube. There is significant decrease in the right-sided pn eumothorax. Left lung is clear. Heart and mediastinum are normal. IMPRESSION: Right-sided pneumothorax is approximately 15% and significantly decreased compared to la st exam.
[2018-04-03] MEDS: HYDROmorphone 1 MG/ML 1 ML SYRINGE IVP PRN (19:42)
--- NOTE | 2018-04-03 20:58 | OP ---
OPERATIVE REPORT PROCEDURE: Placement of a right thoracic vent/chest tube insertion. PREOPERATIVE DIAGNOSIS/INDICATION: Right-sided pneumothorax. The patient presented initially with right-sided spontaneous pneumothorax. She had a chest tube placed by the ER physician, removed today, this afternoon. Follow-up chest x-ray post removal of the chest tube showed re-collapse of the right lung and extensive right-sided pneumothorax. Hence right-sided thoracic vent was indicated. POSTOPERATIVE DIAGNOSIS: Spontaneous right-sided pneumothorax. PROCEDURE DESCRIPTION: The patient was placed in a sitting position in the bed. The area below the right clavicle was prepared in a sterile fashion and drapes were applied. At the level of the third intercostal space and midclavicular line, the area was locally anesthetized. Then using a 26-gauge needle, the area was continuously localized until the pleural space was entered and bubbles were noted in the syringe. Then a small tiny incision was made at the same site, and a thoracic vent with trocar in place was inserted at the same site, advanced into the pleural space until the diaphragm on the thoracic vent was noted to go up and down. Then the catheter of the thoracic vent was advanced over the trocar, and the trocar was removed. The thoracic vent was connected to Pleur-Evac and was connected to suction. Chest x-ray postoperatively showed significant expansion of the right lung. Small apical pneumothorax was still noted. The procedure was well tolerated, and no evidence of any immediate complications. MMODL / IJN: [id number] /
--- NOTE | 2018-04-04 02:02 | P.PN ---
Subjective Progress Note Date: 04/03/18 Interval history:58-year-old female with extensive smoking history 25+ years smoking history quit 10 years ago never was diagnosed with COPD came in with complaints of chest pain, severe sharp pleuritic in nature along with severe shortness of breath progressively worsened over day yesterday patient is found to have large right-sided pneumothorax patient had a chest tube which was now underwater seal patient has right-sided chest tube. Repeat chest x-ray shows significant improvement in the pneumothorax. Patient does drink alcohol on a daily basis presently appears to have mild withdrawals patient is on Ativan CIWA protocol patient drinks about 4 beers per day. Patient has elevated MCV from my alcohol abuse. She is chest pain significantly improved as mild discomfort due to chest tube. She was a little denied any short of breath cough. 04/03/2018 maintained on IV fluid hydration, sodium up to 133. Maintained on CIWA protocol, no DTs. Afebrile, WBC normal. Chest tube currently clamped with no air leak present. Denies chest pain, palpitations or increasing shortness of breath. Denies lightheadedness dizziness or focal deficits. Afebrile. Objective - Vital Signs Vital signs: Vital Signs Temp 97.4 F L 04/03/18 20:00 Pulse 79 04/03/18 23:00 Resp 10 L 04/03/18 23:00 BP 126/78 04/03/18 23:00 Pulse Ox 96 04/03/18 23:00 Intake & Output 04/03/18 04/03/18 04/04/18 06:59 18:59 06:59 Intake Total 200 Output Total 750 Balance 200 -750 Intake: Oral 200 Output: Urine 750 Other: Voiding Method Toilet # Voids 2 2 - Exam GENERAL: The patient is alert and oriented x3, not in any acute distress. Well developed, well nourished. HEENT: Pupils are round and equally reacting to light. EOMI. No scleral icterus. No conjunctival pallor. Normocephalic, atraumatic. No pharyngeal erythema. No thyromegaly. CARDIOVASCULAR: S1 and S2 present. No murmurs, rubs, or gallops. PULMONARY: Chest is clear to auscultation, bilateral bases diminished, no wheezing or crackles. Right pleural chest tube clamped with no air leak present. ABDOMEN: Soft, nontender, nondistended, normoactive bowel sounds. No palpable organomegaly. MUSCULOSKELETAL: No joint swelling or deformity. EXTREMITIES: No cyanosis, clubbing, or pedal edema. NEUROLOGICAL: Gross neurological examination did not reveal any focal deficits. SKIN: No rashes. - Labs CBC & Chem 7: 04/03/18 08:02 04/03/18 08:02 Labs: Abnormal Lab Results - Last 24 Hours (Table) 04/03/18 04/03/18 Range/Units 08:02 08:02 MCV 103.6 H (80.0-100.0) fL MCH 35.8 H (25.0-35.0) pg Sodium 133 L (137-145) mmol/L BUN 6 L (7-17) mg/dL Creatinine 0.51 L (0.52-1.04) mg/dL Assessment and Plan Assessment: -Large right-sided pneumothorax: Patient is status post chest tube placement patient may have emphysema- which was never diagnosed, possibly ruptured a pleural bleb. 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, improving with IV fluids -Macrocytosis: -Alcohol withdrawal -Elevated hematocrit: Secondary to hemoconcentration, resolved -Leukocytosis reactive secondary to pneumothorax Plan: Continue on current medication regime ,monitoring and symptomatic treatment. Pain management. Aggressive pulmonary toileting with incentive spirometer reinforced. Chest tube currently clamped, repeat chest x-ray pending. Potential DC chest tube and discharged home pending improvement in right apical pneumothorax. Smoking and alcohol cessation readdressed. The impression and plan of care has been dictated as directed. : I performed a history and examination of this patient, discussed the same with the dictator. I agree with the dictator's note ,documented as a scribe. Any additional findings or plans will be noted.
[2018-04-04 05:35] LABS: Basophils % (A) 0 %; Eosinophils # (A) 0.2 k/uL (0-0.7); Eosinophils % (A) 2 %; HCT 40.6 % (34.0-46.0); HGB 13.7 gm/dL (11.4-16.0); Lymphocytes # (A) 1.7 k/uL (1.0-4.8); Lymphocytes % (A) 26 %; MCHC 33.7 g/dL (31.0-37.0); MCV 106.8 fL (80.0-100.0); Macrocytosis Slight; Mean Platelet Volume 8.3; Monocytes # (A) 0.5 k/uL (0-1.0); Monocytes % (A) 8 %; Neutrophils # (A) 3.8 k/uL (1.3-7.7); Neutrophils % (A) 61 %; Platelet Count 165 k/uL (150-450); RDW 11.9 % (11.5-15.5); WBC 6.3 k/uL (3.8-10.6)
[2018-04-04 05:47] LABS: Anion Gap 5 mmol/L; Blood Urea Nitrogen 6 mg/dL (7-17); Calcium 8.9 mg/dL (8.4-10.2); Carbon Dioxide 24 mmol/L (22-30); Chloride 101 mmol/L (98-107); Glucose 87 mg/dL (74-99); Magnesium 1.9 mg/dL (1.6-2.3); Phosphorus 4.1 mg/dL (2.5-4.5); Potassium 4.3 mmol/L (3.5-5.1); Sodium 130 mmol/L (137-145)
--- NOTE | 2018-04-04 06:00 | XR ---
EXAMINATION TYPE: XR chest 1V portable DATE OF EXAM: 04/04/2018 HISTORY: pneumothorax. REFERENCE: Previous study dated 04/03/2018. FINDINGS: There continues to be a right pleural drain in place. There is approximately 20% by volume pneumothorax on the right. There is a small right-sided pleural effusion and there is some right basi lar atelectasis. The left lung is clear. The heart is not enlarged. IMPRESSION: RESIDUAL APPROXIMATELY 20% BY VOLUME PNEUMOTHORAX ON THE RIGHT.
[2018-04-04] MEDS: MAGNESIUM SULFATE-D5W PMX 1 GM in DEXTROSE/WATER 1 100ML.BAG IVPB SCH ×2 (06:39→09:02)
[2018-04-04] MEDS: SODIUM CHLORIDE 0.9% 1,000 ML IV SCH (06:39)
[2018-04-04] MEDS: KETOROLAC 30 MG/ML 1 ML VIAL IVP SCH ×3 (06:39→22:58)
[2018-04-04] MEDS: DIVALPROEX 500 MG TABLET.DR PO SCH ×2 (09:02→21:19)
[2018-04-04] MEDS ORDERED: IPRATROPIUM-ALBUTEROL 3 ML NEB INHALATION PRN (10:41)
--- NOTE | 2018-04-04 11:54 | P.PN ---
Subjective Progress Note Date: 04/04/18 Principal diagnosis: Acute right sided spontaneous pneumothorax This is a very pleasant 58-year-old female patient who follows with Dr. Horton as her primary care physician. History of seizure disorder with previous craniotomy in 2008. She does have a 25+ year smoking history however quit 10 years ago. Daily alcohol consumption. She presented here to the emergency room yesterday with complaints of shortness of breath and right shoulder and chest pain. She is found to have a large spontaneous pneumothorax. Status post chest tube insertion. She is seen today in consultation on the regular medical floor. She is awake and alert in no acute distress. Chest tube remains in place. There is currently a leak. Placed to waterseal. Cardiothoracic is following. She is currently maintaining good O2 saturations in the 90s on room air. She's afebrile. Hemodynamically stable. White count 13.3. Hemoglobin 16.4. MCV 100.3. Sodium 128. Creatinine 0.48. AST 43. Patient is seen again today 04/03/2018 in follow-up on the regular medical floor. She is awake and alert in no acute distress. Maintaining good O2 saturations in the 90s on room air. Currently sitting up in a chair at the bedside. He denies any worsening shortness of breath, cough or congestion. Today's chest x-ray revealed a small right apical pneumothorax. Chest tube is in place. Currently clamped per CT services. Patient was reevaluated today on 04/04/2018, patient developed the collapse of her lung after removal of the chest tube yesterday, hence I came back at night, and placed a thoracic vent in the right chest. Patient is doing much better, she is breathing a lot easier, she is relatively asymptomatic, chest x-ray continues to show a small right apical pneumothorax. Continues to have a bit of an air leak in the pleural VAC. Otherwise the patient is doing great, chest x-ray was reviewed, all labs were reviewed, no major issues at present except for the fact that the patient is in the ICU, and I will move her back to the floor today. She didn't sleep well last night, she was bothered with the noise in the ICU. Objective - Vital Signs Vital signs: Vital Signs Temp 97.7 F 04/04/18 09:00 Pulse 93 04/04/18 09:00 Resp 13 04/04/18 09:00 BP 145/84 04/04/18 09:00 Pulse Ox 96 04/04/18 09:00 Intake & Output 04/03/18 04/04/18 04/04/18 18:59 06:59 18:59 Intake Total 200 900 500 Output Total 1750 900 Balance 200 -850 -400 Weight 49.5 kg Intake: IV 900 300 Sodium Chloride 0.9% 1, 900 300 000 ml @ 100 mls/hr IV . Q10H THERESE Rx#:[id number] Intake, IV Titration 200 Amount Magnesium Sulfate-D5w Pmx 200 1 gm In Dextrose/Water 1 100ml.bag @ 100 mls/hr IVPB Q1H THERESE Rx#: [id number] Oral 200 Output: Urine 1750 900 Other: Voiding Method Toilet # Voids 2 - Exam Physical Exam: Revealed a 58-year-old female in no distress. Head: Atraumatic normocephalic. HEENT:[Neck is supple.] [No neck masses.] [No thyromegaly.] [No JVD.] Chest: [Clear throughout, no crackles, no rhonchi, no wheezes.] Right-sided thoracic vent is noted connected to Pleur-evac. Cardiac Exam: [Normal S1 and S2, no S3 gallop, no murmur.] Abdomen: [Soft, nontender, no megaly, no rebound, no guarding, normal bowel sounds.] Extremities: [No clubbing, no edema, no cyanosis.] Neurological Exam: [No focal neurologic deficit. Psychiatric: Normal mood affect and mental status examination. Skin: No rashes. Lymphatics: No lymphadenopathy.] - Labs CBC & Chem 7: 04/04/18 04:32 04/04/18 04:32 Labs: Abnormal Lab Results - Last 24 Hours (Table) 04/04/18 04/04/18 Range/Units 04:32 04:32 MCV 106.8 H (80.0-100.0) fL MCH 36.0 H (25.0-35.0) pg Sodium 130 L (137-145) mmol/L BUN 6 L (7-17) mg/dL Creatinine 0.37 L (0.52-1.04) mg/dL Assessment and Plan Assessment: #1 Dyspnea secondary to a large right spontaneous pneumothorax. Patient was initially admitted, had a chest tube placed by the ER physician, however it was removed yesterday by thoracic surgery, patient developed pneumothorax again, and she had a thoracic vent placed by me on 04/03/2018. There is near complete expansion of the right lung, continues to have apical right-sided pneumothorax, continues to have small air leak and the pleural VAC. Hence we'll continue thoracic vent to suction. #2 History of chronic tobacco dependence of approximately 25 years however quit 10 years ago. #3 Daily alcohol use. #4 History of brain tumor status post craniotomy. #5 History of seizures. #6 Hyponatremia suspect secondary to alcohol consumption. Recommendation: Patient to be transferred out of the ICU to a regular medical floor, continue chest tube to suction, discussed and reviewed with the patient and her the chest x-ray findings, no plans to remove the thoracic vent today or tomorrow, patient will be kept in the hospital, and we'll address again in the next 24 hours. Continue in the meantime bronchodilators, continue her usual meds, continue Xanax, we will continue to follow. Continue thiamine. Time with Patient: Less than 30
--- NOTE | 2018-04-04 11:54 | P.PN ---
Subjective Progress Note Date: 04/04/18 Principal diagnosis: Right-sided spontaneous pneumothorax. 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 POD #1 right chest Thoravent placement. The patient is currently lying in bed in the intensive care unit. She is in no acute distress. Currently rates her pain to her right Thoravent insertion site 3 out of 10 on the pain scale. Denies any complaints of shortness of breath, continues on room air with oxygen saturations 96%. Right Thoravent chest tube remains to low continuous wall suction with air leak present. Her is at her bedside. Objective - Vital Signs Vital signs: Vital Signs Temp 97.7 F 04/04/18 09:00 Pulse 93 04/04/18 09:00 Resp 13 04/04/18 09:00 BP 145/84 04/04/18 09:00 Pulse Ox 96 04/04/18 09:00 Intake & Output 04/03/18 04/04/18 04/04/18 18:59 06:59 18:59 Intake Total 200 900 500 Output Total 1750 900 Balance 200 -850 -400 Weight 49.5 kg Intake: IV 900 300 Sodium Chloride 0.9% 1, 900 300 000 ml @ 100 mls/hr IV . Q10H THERESE Rx#:[id number] Intake, IV Titration 200 Amount Magnesium Sulfate-D5w Pmx 200 1 gm In Dextrose/Water 1 100ml.bag @ 100 mls/hr IVPB Q1H THERESE Rx#: [id number] Oral 200 Output: Urine 1750 900 Other: Voiding Method Toilet # Voids 2 - Constitutional General appearance: Present: cooperative, no acute distress, thin - Respiratory Details: Lung sounds diminished throughout. Respirations are symmetrical and nonlabored. Oxygen saturation are 96% on room air. She is achieving 1250 mL on her incentive spirometry. Right chest Thoravent in place to low continuous wall suction -20 cm H2O. Positive air leak. No drainage present. - Cardiovascular Details: Regular rhythm and rate. S1 and S2 present, negative for S3, gallop or murmur. No edema present. Bedside telemetry showing normal sinus rhythm heart rate 88. Knee-high sequential compression devices in place to bilateral lower extremities. - Gastrointestinal Gastrointestinal Comment(s): Abdomen is soft, nontender and nondistended. Active bowel sounds all 4 abdominal quadrants. No guarding or rigidity. No organomegaly. Tolerating oral intake. - Genitourinary Genitourinary Comment(s): Voiding clear yellow urine. 1000 mL output in the last 8 hours. - Integumentary Integumentary Comment(s): Skin is warm and dry. No clubbing or cyanosis present. No rash or abnormal pigmentation present. - Neurologic Neurologic: Present: CNII-XII intact - Musculoskeletal Musculoskeletal: Present: gait normal, strength equal bilaterally - Psychiatric Psychiatric: Present: A&O x's 3, appropriate affect, intact judgment & insight - Allied health notes Allied health notes reviewed: nursing - Labs CBC & Chem 7: 04/04/18 04:32 04/04/18 04:32 Labs: Abnormal Lab Results - Last 24 Hours (Table) 04/04/18 04/04/18 Range/Units 04:32 04:32 MCV 106.8 H (80.0-100.0) fL MCH 36.0 H (25.0-35.0) pg Sodium 130 L (137-145) mmol/L BUN 6 L (7-17) mg/dL Creatinine 0.37 L (0.52-1.04) mg/dL - Imaging and Cardiology Chest x-ray: report reviewed, image reviewed Assessment and Plan (1) Spontaneous pneumothorax Current Visit: Yes Status: Acute Code(s): J93.83 - OTHER PNEUMOTHORAX SNOMED Code(s): 15555103 (2) Alcohol use Current Visit: Yes Status: Chronic Code(s): Z78.9 - OTHER SPECIFIED HEALTH STATUS SNOMED Code(s): 211310 (3) Tobacco dependence in remission Current Visit: No Status: Resolved Code(s): F17.201 - NICOTINE DEPENDENCE, UNSPECIFIED, IN REMISSION SNOMED Code(s): 675154948 Plan: 1. Continue Thoravent to low continuous wall suction -20 cm H2O. 2. Computed tomography scan of her chest without contrast ordered for further evaluation. 3. Pain control with current medication regimen. 4. Encourage incentive spirometry 10 times every hour while awake. 5. Encourage continued smoking cessation. 6. Patient was counseled that she may need surgical intervention. 7. More recommendations to follow based on patient's clinical course. Time with Patient: Greater than 30
[2018-04-04] MEDS ORDERED: LORazepam 2 MG/ML INJ IV STA (19:32)
[2018-04-04] MEDS ORDERED: hydrALAZINE HCL 20 MG/ML 1 ML VIAL IVP STA (19:33)
--- NOTE | 2018-04-04 21:04 | XR ---
EXAMINATION TYPE: XR chest 1V portable DATE OF EXAM: 04/04/2018 Comparison: 04/04/2018 Clinical History: 58-year-old female SOB Findings: Heart normal size though there is some leftward shift of the cardiac silhouette. Hyperinflation. Righ t-sided pleural drain remains in place but there is marked interval enlargement of the patient's righ t-sided pneumothorax. This is the large pneumothorax now at over 50% measuring 5.5 cm from the thorac ic wall in the upper thorax and 5.3 cm in the lower thorax. Impression: The pleural drain remains in place. However, there is marked interval enlargement of the patient's ri ght pneumothorax now well over 50%. Slight shift of the heart toward the left may indicate early tens ion. Findings called to 2SICU and given to Nurse Badillo at 8:17pm.
--- NOTE | 2018-04-04 21:22 | XR ---
EXAMINATION TYPE: XR chest 1V portable DATE OF EXAM: 04/04/2018 Comparison: Earlier today Clinical History: 58-year-old female, follow-up, r/o pneumo Findings: Right-sided Thora-vent remains in the anterior second intercostal space. Improvement in the patient's right-sided pneumothorax. Subtle pneumothorax is seen at the right apex, 5% or less. Small right eff usion with adjacent atelectasis remains. Some patchy left upper lobe groundglass seen on patient's CT chest today is not apparent radiographically. The heart is now midline. Aorta and pulmonary vasculat ure within normal limits. Impression: 1. Interval improvement. Residual small right apical pneumothorax estimated at 5% or less. The cardio mediastinal shift has resolved. 2. Similar small right effusion with adjacent atelectasis. 3. Left upper lobe groundglass seen on CT of the same day are not apparent radiographically. Refer to CT report for further findings and recommendations.
[2018-04-04] MEDS: ACETAMINOPHEN TAB 325 MG TAB PO PRN (21:27)
--- NOTE | 2018-04-04 21:44 | CT ---
EXAMINATION TYPE: CT chest wo con DATE OF EXAM: 04/04/2018 COMPARISON: Radiograph same day HISTORY: 58-year-old female with spontaneous right pneumothorax. TECHNIQUE: Contiguous axial scanning of the chest without IV contrast. Coronal and sagittal reconstru ctions performed. CT DLP: 254.7 mGycm Automated exposure control for dose reduction was used. FINDINGS: Heart normal size without pericardial effusion. Aorta normal caliber with conventional branching anatomy. No thoracic lymphadenopathy identified by noncontrast CT. Motion artifacts are present. Visualized upper abdomen shows no gross abnormal mobility. There is a small right and trace left pleural effusion. Adjacent atelectasis at the posterior right b ase. There is a small right-sided pneumothorax, less than 5%. Right-sided pleural drain is present from an anterior approach within the second intercostal space. Associated subcutaneous emphysema. There is some focal groundglass in the subpleural region of the anterior right upper lobe could repre sent some mild contusion from catheter placement. However, there is additional groundglass anterior left upper lobe of uncertain etiology, refer to axi al images 25 and 31. There is mild biapical pleural parenchymal scarring and suggestion of some blebs at the right apex. No cystic change in the lungs Bones: No osseous destructive process. IMPRESSION: 1. SMALL RIGHT SIDED PNEUMOTHORAX, LESS THAN 5% WITH A THORA-VENT CATHETER IN PLACE. 2. THERE IS MILD BIAPICAL PLEURAL-PARENCHYMAL SCARRING AND SOME BLEBS AT THE RIGHT APEX WHICH MAY HAV E SERVED THE UNDERLYING CAUSE OF THE SPONTANEOUS PNEUMOTHORAX. 3. SMALL RIGHT AND TRACE LEFT PLEURAL EFFUSIONS WITH ADJACENT ATELECTASIS. 4. SOME GROUNDGLASS IN THE ANTERIOR RIGHT UPPER LOBE UNDERLYING THE PLEURAL CATHETER MAY REPRESENT NH LD PULMONARY CONTUSION FROM CATHETER PLACEMENT. HOWEVER, SOME ADDITIONAL GROUNDGLASS IS PRESENT IN TH E LEFT UPPER LOBE. INFECTIOUS/INFLAMMATORY FOCI ARE NOT EXCLUDED. RECOMMEND FOLLOW-UP CT IN 3 MONTHS TO REASSESS.
[2018-04-04] MEDS: MULTIVITAMINS, THERA 1 EACH TAB PO SCH (23:04)
[2018-04-04] MEDS: THIAMINE 100 MG TAB PO SCH (23:05)
[2018-04-05 06:04] LABS: HCT 38.3 % (34.0-46.0); HGB 12.9 gm/dL (11.4-16.0); MCH 34.7 pg (25.0-35.0); MCHC 33.6 g/dL (31.0-37.0); MCV 103.4 fL (80.0-100.0); Macrocytosis Slight; Mean Platelet Volume 7.4; Platelet Count 201 k/uL (150-450); RDW 11.7 % (11.5-15.5); WBC 5.4 k/uL (3.8-10.6)
[2018-04-05] MEDS: KETOROLAC 30 MG/ML 1 ML VIAL IVP SCH ×3 (06:07→18:52)
[2018-04-05 06:10] LABS: Anion Gap 4 mmol/L; Blood Urea Nitrogen 6 mg/dL (7-17); Calcium 8.8 mg/dL (8.4-10.2); Carbon Dioxide 25 mmol/L (22-30); Chloride 103 mmol/L (98-107); Glucose 85 mg/dL (74-99); Phosphorus 4.2 mg/dL (2.5-4.5); Potassium 4.1 mmol/L (3.5-5.1); Sodium 132 mmol/L (137-145)
--- NOTE | 2018-04-05 06:24 | XR ---
EXAMINATION TYPE: XR chest 1V DATE OF EXAM: 04/05/2018 HISTORY: chest tube. REFERENCE: Previous study dated 04/04/2018. FINDINGS: The right pleural drain remains in place. There is residual 15-20% by volume pneumothorax i s present on the right. The left lung is clear. Pleural spaces are clear. The heart is not enlarged. IMPRESSION: RESIDUAL RIGHT APICAL APICAL PNEUMOTHORAX.
[2018-04-05] MEDS: SODIUM CHLORIDE 0.9% 1,000 ML IV SCH ×2 (08:31→08:36)
[2018-04-05] MEDS: DIVALPROEX 500 MG TABLET.DR PO SCH ×2 (08:36→20:57)
--- NOTE | 2018-04-05 10:05 | P.PN ---
Subjective Progress Note Date: 04/05/18 Principal diagnosis: Acute right sided spontaneous pneumothorax This is a very pleasant 58-year-old female patient who follows with Dr. Horton as her primary care physician. History of seizure disorder with previous craniotomy in 2008. She does have a 25+ year smoking history however quit 10 years ago. Daily alcohol consumption. She presented here to the emergency room yesterday with complaints of shortness of breath and right shoulder and chest pain. She is found to have a large spontaneous pneumothorax. Status post chest tube insertion. She is seen today in consultation on the regular medical floor. She is awake and alert in no acute distress. Chest tube remains in place. There is currently a leak. Placed to waterseal. Cardiothoracic is following. She is currently maintaining good O2 saturations in the 90s on room air. She's afebrile. Hemodynamically stable. White count 13.3. Hemoglobin 16.4. MCV 100.3. Sodium 128. Creatinine 0.48. AST 43. Patient is seen again today 04/03/2018 in follow-up on the regular medical floor. She is awake and alert in no acute distress. Maintaining good O2 saturations in the 90s on room air. Currently sitting up in a chair at the bedside. He denies any worsening shortness of breath, cough or congestion. Today's chest x-ray revealed a small right apical pneumothorax. Chest tube is in place. Currently clamped per CT services. Patient was reevaluated today on 04/04/2018, patient developed the collapse of her lung after removal of the chest tube yesterday, hence I came back at night, and placed a thoracic vent in the right chest. Patient is doing much better, she is breathing a lot easier, she is relatively asymptomatic, chest x-ray continues to show a small right apical pneumothorax. Continues to have a bit of an air leak in the pleural VAC. Otherwise the patient is doing great, chest x-ray was reviewed, all labs were reviewed, no major issues at present except for the fact that the patient is in the ICU, and I will move her back to the floor today. She didn't sleep well last night, she was bothered with the noise in the ICU. Patient was reevaluated today on 04/05/2018, remains in the ICU, last night, the patient became quite short of breath, and required 3 placed on 6 L nasal cannula. Chest x-ray done showed 3 collapse of the right lung in spite of the thoracic vent tube was in proper place. Then the nurses were instructed to inspect of the tubing leading to the pleural VAC, and apparently there was some clots noted in the tubing, patient responded to stripping the tubing, and suddenly the patient improved, follow-up chest x-ray showed reexpansion of the right lung, and very minimal residual apical pneumothorax noted. Today the lung is fully expanded, very minimal right apical pneumothorax persists, patient does have a small air leak, hence she will continue with the thoracic vent on suction. Patient is feeling better today compared to last night, she is on room air, saturating in the 90s. Quite anxious to be discharged home, but she is clearly not ready to be discharged yet. Objective - Vital Signs Vital signs: Vital Signs Temp 97.8 F 04/05/18 09:00 Pulse 79 04/05/18 09:00 Resp 16 04/05/18 09:00 BP 149/91 04/05/18 09:00 Pulse Ox 95 04/05/18 09:00 Intake & Output 04/04/18 04/05/18 04/05/18 18:59 06:59 18:59 Intake Total 2100 1700 100 Output Total 900 5325 Balance 1200 -3625 100 Weight 50.9 kg Intake: IV 1200 1200 100 Sodium Chloride 0.9% 1, 1200 1200 100 000 ml @ 100 mls/hr IV . Q10H THERESE Rx#:[id number] Intake, IV Titration 400 Amount Magnesium Sulfate-D5w Pmx 400 1 gm In Dextrose/Water 1 100ml.bag @ 100 mls/hr IVPB Q1H THERESE Rx#: [id number] Oral 500 500 Output: Chest Tube Drainage 25 Chest Tube Right Mid- 25 Axillary Chest Urine 900 5300 Other: Voiding Method Bedside Commode Bedside Commode # Voids 2 0 - Exam Physical Exam: Revealed a 58-year-old female in no distress. Head: Atraumatic normocephalic. HEENT:[Neck is supple.] [No neck masses.] [No thyromegaly.] [No JVD.] Chest: [Clear throughout, no crackles, no rhonchi, no wheezes.] Right-sided thoracic vent is noted connected to Pleur-evac. Cardiac Exam: [Normal S1 and S2, no S3 gallop, no murmur.] Abdomen: [Soft, nontender, no megaly, no rebound, no guarding, normal bowel sounds.] Extremities: [No clubbing, no edema, no cyanosis.] Neurological Exam: [No focal neurologic deficit. Psychiatric: Normal mood affect and mental status examination. Skin: No rashes. Lymphatics: No lymphadenopathy.] - Labs CBC & Chem 7: 04/05/18 05:17 04/05/18 05:17 Labs: Abnormal Lab Results - Last 24 Hours (Table) 04/05/18 04/05/18 Range/Units 05:17 05:17 RBC 3.70 L (3.80-5.40) m/uL MCV 103.4 H (80.0-100.0) fL Sodium 132 L (137-145) mmol/L BUN 6 L (7-17) mg/dL Creatinine 0.40 L (0.52-1.04) mg/dL Assessment and Plan Assessment: #1 Dyspnea secondary to a large right spontaneous pneumothorax. Patient was initially admitted, had a chest tube placed by the ER physician, however it was removed yesterday by thoracic surgery, patient developed pneumothorax again, and she had a thoracic vent placed by me on 04/03/2018. There is near complete expansion of the right lung, continues to have apical right-sided pneumothorax, continues to have small air leak and the pleural VAC. Hence we'll continue thoracic vent to suction. The issues of last night regarding the chest tube were discussed with the patient and her . And reassured that the thoracic vent is working fine, and the lung is basically expanded, patient can be transferred out of the ICU to a regular medical floor. #2 History of chronic tobacco dependence of approximately 25 years however quit 10 years ago. #3 Daily alcohol use. #4 History of brain tumor status post craniotomy. #5 History of seizures. #6 Hyponatremia suspect secondary to alcohol consumption. Improving. Recommendation: Discussed with the patient and her the issues of last night, discussed and reviewed the chest x-ray with both, and explained to them that the tube will need to remain in place, she will need to remain on suction, and potentially we can transfer the patient out of the ICU to a medical surgical bed, patient is presently on overflow in the ICU. We'll continue to follow. Advised to continue deep coughing and deep breathing, advised to continue incentive spirometry, and all her meds and labs were reviewed, patient will remain on thiamine, and she'll be given Ativan as needed. Time with Patient: Less than 30
--- NOTE | 2018-04-05 10:15 | P.PN ---
Subjective Progress Note Date: 04/04/18 Patient is admitted for pneumothorax. In spite of thoracic vent patient is in requirements underwent a because of collapse of the right lung again because of which patient was transferred to ICU and the tubing was readjusted with the improvement in his or pneumothorax lung is fully expanded today. Patient will be monitored. Constitutional: Denied any fatigue denied any fever. Cardio vascular: denied any chest pain, palpitations Gastrointestinal denied any nausea vomiting Pulmonary: Denied any shortness of breath cough Neurologic denied any new focal deficits All inpatient medications were reviewed and appropriate changes in these medications as dictated in the interval history and assessment and plan. Objective - Vital Signs Vital signs: Vital Signs Temp 97.8 F 04/05/18 09:00 Pulse 79 04/05/18 09:00 Resp 16 04/05/18 09:00 BP 149/91 04/05/18 09:00 Pulse Ox 95 04/05/18 09:00 Intake & Output 04/04/18 04/05/18 04/05/18 18:59 06:59 18:59 Intake Total 2100 1700 100 Output Total 900 5325 Balance 1200 -3625 100 Weight 50.9 kg Intake: IV 1200 1200 100 Sodium Chloride 0.9% 1, 1200 1200 100 000 ml @ 100 mls/hr IV . Q10H THERESE Rx#:[id number] Intake, IV Titration 400 Amount Magnesium Sulfate-D5w Pmx 400 1 gm In Dextrose/Water 1 100ml.bag @ 100 mls/hr IVPB Q1H THERESE Rx#: [id number] Oral 500 500 Output: Chest Tube Drainage 25 Chest Tube Right Mid- 25 Axillary Chest Urine 900 5300 Other: Voiding Method Bedside Commode Bedside Commode # Voids 2 0 - Exam PHYSICAL EXAMINATION: GENERAL: The patient is alert and oriented x3, not in any acute distress. Well developed, well nourished. HEENT: Pupils are round and equally reacting to light. EOMI. No scleral icterus. No conjunctival pallor. Normocephalic, atraumatic. No pharyngeal erythema. No thyromegaly. CARDIOVASCULAR: S1 and S2 present. No murmurs, rubs, or gallops. PULMONARY: Chest is clear to auscultation, no wheezing or crackles. Right- sided chest tube in place ABDOMEN: Soft, nontender, nondistended, normoactive bowel sounds. No palpable organomegaly. MUSCULOSKELETAL: No joint swelling or deformity. EXTREMITIES: No cyanosis, clubbing, or pedal edema. NEUROLOGICAL: Gross neurological examination did not reveal any focal deficits. SKIN: No rashes. - Labs CBC & Chem 7: 04/05/18 05:17 04/05/18 05:17 Labs: Abnormal Lab Results - Last 24 Hours (Table) 04/05/18 04/05/18 Range/Units 05:17 05:17 RBC 3.70 L (3.80-5.40) m/uL MCV 103.4 H (80.0-100.0) fL Sodium 132 L (137-145) mmol/L BUN 6 L (7-17) mg/dL Creatinine 0.40 L (0.52-1.04) mg/dL Assessment and Plan Plan: -Large right-sided pneumothorax: Patient is status post chest tube placement patient may have emphysema which was never diagnosed and may have ruptured a pleural bleb. 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: Improved with IV fluids has gone down again now because of pain SIADH from pain expected to improve by tomorrow -Macrocytosis: Secondary to alcohol abuse patient will be started on thiamine multivitamin supplementation -Alcohol withdrawal: Patient is on CIWA protocol is not requiring any Ativan at this time -Elevated hematocrit: Secondary to hemoconcentration improved with IV fluids -Leukocytosis reactive secondary to pneumothorax
[2018-04-05] MEDS: LORazepam 2 MG/ML INJ IV PRN ×2 (10:30→19:15)
--- NOTE | 2018-04-05 12:38 | P.PN ---
Subjective Progress Note Date: 04/05/18 Principal diagnosis: Right-sided spontaneous pneumothorax. 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 POD #2 right chest Thoravent placement for recurrent spontaneous right pneumothorax. The patient is currently sitting up to the bed to bedside chair in the intensive care unit. She is in no acute distress. Currently denies any complaints of pain or shortness of breath, continues on room air with oxygen saturations 95%. Right Thoravent chest tube remains to low continuous wall suction with air leak present. Her is at her bedside. The patient reports that she had an episode last evening around 7:30 PM where she became short of breath with decreased oxygen saturations in the 80s. Subsequently, a chest x-ray was completed at that time and demonstrated a 50% right pneumothorax. A repeat x-ray demonstrated that her lung to be fully expanded. The right pneumothorax resolved with removal of blood clot from the Thoravent tubing according to the bedside nurse. Patient also underwent a computed tomography scan of her chest yesterday without contrast. The chest computed tomography scan results showed a small right sided pneumothorax less than 5% with a Thoravent catheter in place, and mild biapical pleural parenchymal scarring and some blebs at the right apex. Objective - Vital Signs Vital signs: Vital Signs Temp 97.8 F 04/05/18 09:00 Pulse 74 04/05/18 12:00 Resp 18 04/05/18 12:00 BP 139/89 04/05/18 12:00 Pulse Ox 95 04/05/18 12:00 Intake & Output 04/04/18 04/05/18 04/05/18 18:59 06:59 18:59 Intake Total 2100 1700 100 Output Total 900 5325 Balance 1200 -3625 100 Weight 50.9 kg Intake: IV 1200 1200 100 Sodium Chloride 0.9% 1, 1200 1200 100 000 ml @ 100 mls/hr IV . Q10H THERESE Rx#:[id number] Intake, IV Titration 400 Amount Magnesium Sulfate-D5w Pmx 400 1 gm In Dextrose/Water 1 100ml.bag @ 100 mls/hr IVPB Q1H THERESE Rx#: [id number] Oral 500 500 Output: Chest Tube Drainage 25 Chest Tube Right Mid- 25 Axillary Chest Urine 900 5300 Other: Voiding Method Bedside Commode Bedside Commode # Voids 2 0 - Constitutional General appearance: Present: cooperative, no acute distress, thin - Respiratory Details: Lung sounds essentially clear throughout, diminished bilateral bases. Respirations are symmetrical and nonlabored. Oxygen saturation are 95% on room air. She is achieving 1000 mL on her incentive spirometry. Right Thoravent chest tube remains in place to low continuous wall suction -20 cm H2O. Air leak is present. Draining thin serosanguineous drainage. - Cardiovascular Details: Regular rhythm and rate. S1 and S2 present, negative for S3, gallop or murmur. Bedside telemetry showing normal sinus rhythm with heart rate of 87. No edema present. - Gastrointestinal Gastrointestinal Comment(s): Abdomen is soft, nontender and nondistended. Active bowel sounds all 4 abdominal quadrants. No organomegaly. No guarding or rigidity. - Genitourinary Genitourinary Comment(s): Following clear yellow urine. 1000 mm output in the last 8 hours. - Integumentary Integumentary Comment(s): Skin is warm and dry. No clubbing or cyanosis is present. No rash or abnormal pigmentation is present. - Neurologic Neurologic: Present: CNII-XII intact - Musculoskeletal Musculoskeletal: Present: gait normal, strength equal bilaterally - Psychiatric Psychiatric: Present: A&O x's 3, appropriate affect, intact judgment & insight - Allied health notes Allied health notes reviewed: nursing - Labs CBC & Chem 7: 04/05/18 05:17 04/05/18 05:17 Labs: Abnormal Lab Results - Last 24 Hours (Table) 04/05/18 04/05/18 Range/Units 05:17 05:17 RBC 3.70 L (3.80-5.40) m/uL MCV 103.4 H (80.0-100.0) fL Sodium 132 L (137-145) mmol/L BUN 6 L (7-17) mg/dL Creatinine 0.40 L (0.52-1.04) mg/dL - Imaging and Cardiology Chest x-ray: report reviewed, image reviewed CT scan - chest: report reviewed, image reviewed Assessment and Plan (1) Spontaneous pneumothorax Current Visit: Yes Status: Acute Code(s): J93.83 - OTHER PNEUMOTHORAX SNOMED Code(s): 78851342 (2) Alcohol use Current Visit: Yes Status: Chronic Code(s): Z78.9 - OTHER SPECIFIED HEALTH STATUS SNOMED Code(s): 042873 (3) Tobacco dependence in remission Current Visit: No Status: Resolved Code(s): F17.201 - NICOTINE DEPENDENCE, UNSPECIFIED, IN REMISSION SNOMED Code(s): 419446359 Plan: 1. Continue Thoravent to low continuous wall suction -20 cm H2O. 2. The patient will be scheduled for a right video-assisted thoracoscopic surgery with wedge resection of blebs for tomorrow 04/06/[address] Elaine. 3. Pain control with current medication regimen. 4. Encourage incentive spirometry 10 times every hour while awake. 5. Encourage continued smoking cessation. 6. The patient will be made nothing by mouth after midnight. 7. More recommendations to follow based on patient's clinical course. Time with Patient: Greater than 30
[2018-04-05] MEDS: THIAMINE 100 MG TAB PO SCH (15:00)
[2018-04-05] MEDS: MULTIVITAMINS, THERA 1 EACH TAB PO SCH (15:00)
--- NOTE | 2018-04-05 16:42 | P.PN ---
Subjective Patient is admitted for pneumothorax. In spite of thoracic vent patient is in requirements underwent a because of collapse of the right lung again because of which patient was transferred to ICU and the tubing was readjusted with the improvement in his or pneumothorax lung is fully expanded today. Patient will be monitored. 04/05/2018 Patient had reexpansion after the clots were removed. Patient appears to have multiple blebs for which patient will undergo VATS and wedge a resection by cardiothoracic surgery tomorrow. Constitutional: Denied any fatigue denied any fever. Cardio vascular: denied any chest pain, palpitations Gastrointestinal denied any nausea vomiting Pulmonary: Denied any shortness of breath cough Neurologic denied any new focal deficits All inpatient medications were reviewed and appropriate changes in these medications as dictated in the interval history and assessment and plan. Objective - Vital Signs Vital signs: Vital Signs Temp 97.8 F 04/05/18 09:00 Pulse 74 04/05/18 12:00 Resp 18 04/05/18 12:00 BP 139/89 04/05/18 12:00 Pulse Ox 95 04/05/18 12:00 Intake & Output 04/04/18 04/05/18 04/05/18 18:59 06:59 18:59 Intake Total 2100 1700 100 Output Total 900 5325 Balance 1200 -3625 100 Weight 50.9 kg Intake: IV 1200 1200 100 Sodium Chloride 0.9% 1, 1200 1200 100 000 ml @ 100 mls/hr IV . Q10H THERESE Rx#:[id number] Intake, IV Titration 400 Amount Magnesium Sulfate-D5w Pmx 400 1 gm In Dextrose/Water 1 100ml.bag @ 100 mls/hr IVPB Q1H THERESE Rx#: [id number] Oral 500 500 Output: Chest Tube Drainage 25 Chest Tube Right Mid- 25 Axillary Chest Urine 900 5300 Other: Voiding Method Bedside Commode Bedside Commode # Voids 2 0 - Exam PHYSICAL EXAMINATION: GENERAL: The patient is alert and oriented x3, not in any acute distress. Well developed, well nourished. HEENT: Pupils are round and equally reacting to light. EOMI. No scleral icterus. No conjunctival pallor. Normocephalic, atraumatic. No pharyngeal erythema. No thyromegaly. CARDIOVASCULAR: S1 and S2 present. No murmurs, rubs, or gallops. PULMONARY: Chest is clear to auscultation, no wheezing or crackles. Right- sided chest tube in place ABDOMEN: Soft, nontender, nondistended, normoactive bowel sounds. No palpable organomegaly. MUSCULOSKELETAL: No joint swelling or deformity. EXTREMITIES: No cyanosis, clubbing, or pedal edema. NEUROLOGICAL: Gross neurological examination did not reveal any focal deficits. SKIN: No rashes. - Labs CBC & Chem 7: 04/05/18 05:17 04/05/18 05:17 Labs: Abnormal Lab Results - Last 24 Hours (Table) 04/05/18 04/05/18 Range/Units 05:17 05:17 RBC 3.70 L (3.80-5.40) m/uL MCV 103.4 H (80.0-100.0) fL Sodium 132 L (137-145) mmol/L BUN 6 L (7-17) mg/dL Creatinine 0.40 L (0.52-1.04) mg/dL Assessment and Plan Plan: -Large right-sided pneumothorax: Patient is status post chest tube placement patient may have emphysema which was never diagnosed and may have ruptured a pleural bleb. Patient will undergo VATS and wedge resection still has a chest tube in place continues to have air leak 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: Improved with IV fluids has gone down again now because of pain SIADH from pain expected to improve. -Macrocytosis: Secondary to alcohol abuse patient will be started on thiamine multivitamin supplementation -Alcohol withdrawal: Patient is on CIWA protocol is not requiring any Ativan at this time -Elevated hematocrit: Secondary to hemoconcentration improved with IV fluids -Leukocytosis reactive secondary to pneumothorax
[2018-04-05] MEDS ORDERED: LORazepam 2 MG/ML INJ IV STA (20:40)
[2018-04-05] MEDS: amLODIPine 5 MG TAB PO SCH (20:57)
[2018-04-06] MEDS: KETOROLAC 30 MG/ML 1 ML VIAL IVP SCH ×4 (00:11→17:21)
[2018-04-06] MEDS: LORazepam 2 MG/ML INJ IV PRN (02:14)
[2018-04-06] MEDS ORDERED: ALPRAZolam 0.5 MG TAB PO PRN (04:30)
[2018-04-06 05:59] LABS: INR 0.9 (<1.2); Partial Thromboplastin Time 27.4 sec (22.0-30.0); Prothrombin Time 9.9 sec (9.0-12.0)
[2018-04-06] MEDS: DIVALPROEX 500 MG TABLET.DR PO SCH ×2 (07:54→20:16)
[2018-04-06] MEDS: amLODIPine 5 MG TAB PO SCH (07:55)
--- NOTE | 2018-04-06 08:52 | XR ---
EXAMINATION TYPE: XR chest 1V DATE OF EXAM: 04/06/2018 COMPARISON: 04/05/2018 HISTORY: Chest tube TECHNIQUE: Single frontal view of the chest is obtained. FINDINGS: There is a large right pneumothorax increased in size from prior exam measuring at least 5 0%. No mediastinal deviation. Left lung is basilar subsegmental consolidation. Report called to sabrina atkins's nurse. IMPRESSION: Interval noticeable increase in size of a large right-sided pneumothorax.
--- NOTE | 2018-04-06 11:29 | PN ---
PROGRESS NOTE DATE OF SERVICE: April 06, 2018 This is a 58-year-old female with a recurrent right-sided tension pneumothorax. She was admitted on the with a tension pneumothorax on the right side. A chest tube was placed. The tube was removed on the . Subsequent to that, she had a recurrent pneumothorax and a Thoravent was placed by my partner. She is scheduled to have a VATS procedure today. She will have an apical bleb resection with mechanical pleurodesis. The CT scan shows significant apical cystic blebs in the right lung. This is likely the source of her recurrent pneumothoraces. She does have history of underlying COPD as well. Currently on room air. Not receiving any IV fluids. The patient seemed relatively comfortable. The patient did smoke for about 25 years ago, though she quit 10 years ago. She has a history of daily alcohol use. A previous history of brain tumor with craniotomy. History of seizures and hyponatremia. Again, no major complaints today. Denies any shortness of breath, chest pain, chest discomfort, or any other complaints for that matter. Current vital signs are reviewed. Temperature 97.6 heart rate 86, respiratory rate 13, blood pressure 155/103, mean 120, room air saturation between 94% and 95%. Appears in no acute distress. HEENT examination is grossly unremarkable. No nasal O2 noted. NECK: Supple. Full range of motion. No adenopathy, thyromegaly or neck vein distention. Cardiovascular examination reveals regular rhythm and rate. Heart rate 80. S1, S2 normal. No murmur. Lungs reveal diminished breath sounds throughout. No wheezes, rhonchi, or crackles. Abdomen is soft. Bowel sounds are heard. Extremities are intact. No cyanosis, clubbing, or edema. Skin without rash. Neurologic examination is brief but nonfocal. Microbiologic studies are negative. LABS: Labs are reviewed. From today, PT 9.9, INR 0.9, and PTT is 27.4. The labs from yesterday are reviewed. Everything appears to be relatively normal. White count 5.4, hemoglobin 12.9, platelet count 201,000. BUN and creatinine were 6 and 0.4. The patient had a chest x-ray on the , which shows a noticeable increase in the size of the right basilar pneumothorax. Medications are reviewed. ASSESSMENT: 1. Recurrent right-sided pneumothorax, status post chest tube placement for tension and subsequent Thoravent placement for recurrent pneumothorax, with anticipated VATS with anticipated video-assisted thoracoscopic apical bleb resection with mechanical pleurodesis today. 2. History of chronic tobacco dependence. 3. Probable chronic obstructive pulmonary disease. 4. Daily alcohol use. 5. History of brain tumor, status post craniotomy. 6. History of seizure disorder. 7. Hyponatremia. PLAN: Overall, the patient is doing relatively well. The patient will hopefully go for surgical procedure today. No additional recommendations are made. We will continue to follow. CT scan is reviewed. It shows apical blebs in the right lung. Additional recommendations and suggestions are forthcoming. Prognosis is guarded. MMODL / IJN: [id number] /
--- NOTE | 2018-04-06 11:54 | P.PN ---
Subjective Progress Note Date: 04/06/18 Principal diagnosis: Right-sided spontaneous pneumothorax, status post placement of right pleural chest tube to the emergency room physicians with subsequent thoravent placement by Dr. Garcia. Previous medical history of plasma cell granuloma resection in 2008 and subsequent seizures, previous tobacco dependence, COPD, daily EtOH use. The patient is currently sitting in the recliner in the intensive care unit in no acute distress. States pain is controlled with current medication regimen. Right-sided thoravent still in place, no air leak at this time. Anticipates surgery this afternoon for blebectomy and pleurodesis. All questions answered. Objective - Vital Signs Vital signs: Vital Signs Temp 97.6 F 04/06/18 08:00 Pulse 86 04/06/18 08:00 Resp 13 04/06/18 08:00 BP 155/103 04/06/18 08:00 Pulse Ox 95 04/06/18 04:00 Intake & Output 04/05/18 04/06/18 04/06/18 18:59 06:59 18:59 Intake Total 400 100 Output Total 1000 40 1000 Balance -600 60 -1000 Weight 51.8 kg Intake: IV 100 Sodium Chloride 0.9% 1, 100 000 ml @ 100 mls/hr IV . Q10H [facility] Rx#:[id number] Oral 300 100 Output: Chest Tube Drainage 40 0 Thora-Vent Right Anterior 40 0 Chest Urine 1000 1000 Other: Voiding Method Bedside Commode Toilet Toilet Bedside Commode Bedside Commode # Voids 3 1 1 - Constitutional General appearance: Present: cooperative, no acute distress - Respiratory Details: Lungs sounds diminished bilaterally, right greater than left. Respirations even , nonlabored. Currently on room air with oxygen saturation 94%. Able to achieve 1000 mL on incentive spirometry. Right thoravent connected to atrium on continuous wall suction, 40 mL serous drainage overnight, no air leak present. - Cardiovascular Details: S1, S2 present. Regular rate and rhythm, sinus rhythm on telemetry. Palpable peripheral pulses bilaterally. No edema present. No calf pain or tenderness noted. - Gastrointestinal Gastrointestinal Comment(s): Abdomen soft, nontender, nondistended. Active bowel sounds present 4 quadrants. Currently nothing by mouth for surgery this afternoon. - Genitourinary Genitourinary Comment(s): Continues to void clear, yellow urine. - Integumentary Integumentary Comment(s): Skin is warm and dry with evidence of good perfusion. - Neurologic Neurologic: Present: CNII-XII intact - Musculoskeletal Musculoskeletal: Present: gait normal, strength equal bilaterally - Psychiatric Psychiatric: Present: A&O x's 3, appropriate affect, intact judgment & insight - Allied health notes Allied health notes reviewed: nursing - Labs CBC & Chem 7: 04/05/18 05:17 04/05/18 05:17 - Imaging and Cardiology Chest x-ray: report reviewed, image reviewed Assessment and Plan (1) Tobacco dependence in remission Current Visit: No Status: Resolved Code(s): F17.201 - NICOTINE DEPENDENCE, UNSPECIFIED, IN REMISSION SNOMED Code(s): 407815630 (2) Alcohol use Current Visit: Yes Status: Chronic Code(s): Z78.9 - OTHER SPECIFIED HEALTH STATUS SNOMED Code(s): 563089 (3) Spontaneous pneumothorax Current Visit: Yes Status: Acute Code(s): J93.83 - OTHER PNEUMOTHORAX SNOMED Code(s): 60019984 Plan: 1. Thoravent to continue to wall suction. 2. Anticipates video-assisted thoracoscopic blebectomy with pleurodesis this afternoon with Dr. Elaine. Currently nothing by mouth. 3. Pain control with current medication regimen. 4. Encourage incentive spirometry 10 times every hour while awake. 5. Encourage continued smoking cessation. 6. More recommendations to follow. Time with Patient: Greater than 30
[2018-04-06] MEDS: THIAMINE 100 MG TAB PO SCH (11:58)
[2018-04-06] MEDS: MULTIVITAMINS, THERA 1 EACH TAB PO SCH (11:58)
--- NOTE | 2018-04-06 13:46 | P.PN ---
Subjective Progress Note Date: 04/06/18 Interval history:58-year-old female with extensive smoking history 25+ years smoking history quit 10 years ago never was diagnosed with COPD came in with complaints of chest pain, severe sharp pleuritic in nature along with severe shortness of breath progressively worsened over day yesterday patient is found to have large right-sided pneumothorax patient had a chest tube which was now underwater seal patient has right-sided chest tube. Repeat chest x-ray shows significant improvement in the pneumothorax. Patient does drink alcohol on a daily basis presently appears to have mild withdrawals patient is on Ativan CIWA protocol patient drinks about 4 beers per day. Patient has elevated MCV from my alcohol abuse. She is chest pain significantly improved as mild discomfort due to chest tube. She was a little denied any short of breath cough. 04/03/2018 maintained on IV fluid hydration, sodium up to 133. Maintained on CIWA protocol, no DTs. Afebrile, WBC normal. Chest tube currently clamped with no air leak present. Denies chest pain, palpitations or increasing shortness of breath. Denies lightheadedness dizziness or focal deficits. Afebrile. Patient is admitted for pneumothorax. In spite of thoracic vent patient is in requirements underwent a because of collapse of the right lung again because of which patient was transferred to ICU and the tubing was readjusted with the improvement in his or pneumothorax lung is fully expanded today. Patient will be monitored. 04/05/2018 Patient had reexpansion after the clots were removed. Patient appears to have multiple blebs for which patient will undergo VATS and wedge a resection by cardiothoracic surgery tomorrow. 04/06/2018 chest x-ray reporting large right pneumothorax increased in size from prior measuring at least 50% without mediastinal deviation. Currently with Right-sided thoravent. Pain controlled. Denies chest pain, palpitations or increasing shortness of breath .maintaining O2 sats in the mid 90s on room air. Incentive spirometer up to 1000. NPO,scheduled for VATS procedure this afternoon. Telemetry sinus rhythm. Constitutional: Denied any fatigue denied any fever. Cardio vascular: denied any chest pain, palpitations Gastrointestinal denied any nausea vomiting Pulmonary: Denied any shortness of breath cough Neurologic denied any new focal deficits Active Medications Acetaminophen (Tylenol Tab) 650 mg PO Q6HR PRN PRN Reason: Mild Pain or Fever > 100.5 Last Admin: 04/04/18 21:27 Dose: 650 mg Albuterol/Ipratropium (Duoneb 0.5 Mg-3 Mg/3 Ml Soln) 3 ml INHALATION RT-QID PRN PRN Reason: Shortness Of Breath Or Wheezing Alprazolam (Xanax) 0.5 mg PO Q6H PRN PRN Reason: Anxiety Amlodipine Besylate (Norvasc) 5 mg PO DAILY [facility] Last Admin: 04/06/18 07:55 Dose: 5 mg Cefazolin Sodium (Kefzol) 2 gm IVP ONCE ONE Stop: 04/06/18 14:01 Divalproex Sodium (Depakote) 500 mg PO BID [facility] Last Admin: 04/06/18 07:54 Dose: 500 mg Hydromorphone HCl (Dilaudid) 0.5 mg IVP Q3HR PRN PRN Reason: Moderate Pain Last Admin: 04/02/18 05:50 Dose: 0.5 mg Hydromorphone HCl (Dilaudid) 1 mg IVP Q3HR PRN PRN Reason: Severe Pain Last Admin: 04/03/18 19:42 Dose: 1 mg Ketorolac Tromethamine (Toradol) 15 mg IVP Q6HR [facility] Stop: 04/07/18 07:16 Last Admin: 04/06/18 12:13 Dose: 15 mg Lorazepam (Ativan) 0.5 mg IV Q4HR PRN PRN Reason: Anxiety Last Admin: 04/06/18 02:14 Dose: 0.5 mg Multivitamins (Theragran) 1 each PO DAILY@1200 [facility] Last Admin: 04/06/18 11:58 Dose: Not Given Naloxone HCl (Narcan) 0.2 mg IV Q2M PRN PRN Reason: Opioid Reversal Sodium Chloride (Saline Flush) 10 ml IV BID [facility] Last Admin: 04/06/18 07:56 Dose: 10 ml Thiamine HCl (Vitamin B-1) 100 mg PO DAILY@1200 [facility] Last Admin: 04/06/18 11:58 Dose: Not Given Objective - Vital Signs Vital signs: Vital Signs Temp 97.6 F 04/06/18 08:00 Pulse 86 04/06/18 08:00 Resp 13 04/06/18 08:00 BP 155/103 04/06/18 08:00 Pulse Ox 95 04/06/18 04:00 Intake & Output 04/05/18 04/06/18 04/06/18 18:59 06:59 18:59 Intake Total 400 100 Output Total 1000 40 1000 Balance -600 60 -1000 Weight 51.8 kg Intake: IV 100 Sodium Chloride 0.9% 1, 100 000 ml @ 100 mls/hr IV . Q10H [facility] Rx#:[id number] Oral 300 100 Output: Chest Tube Drainage 40 0 Thora-Vent Right Anterior 40 0 Chest Urine 1000 1000 Other: Voiding Method Bedside Commode Toilet Toilet Bedside Commode Bedside Commode # Voids 3 1 1 - Exam GENERAL: The patient is sitting up in bed, alert and oriented x3, not in any acute distress. Conversing without shortness of breath HEENT: Pupils are round and equally reacting to light. EOMI. No scleral icterus. No conjunctival pallor. Normocephalic, atraumatic. No pharyngeal erythema. CARDIOVASCULAR: S1 and S2 present. No murmurs, rubs, or gallops. PULMONARY: Respiratory effort normal/nonlabored. Diminished throughout with right lung more diminished than left. No wheezing, rhonchi or crackles. Right thoravent to continuous suction. ABDOMEN: Soft, nontender, nondistended, positive bowel sounds. No palpable organomegaly. MUSCULOSKELETAL: No joint swelling or deformity. EXTREMITIES: No cyanosis, clubbing, or pedal edema. NEUROLOGICAL: Gross neurological examination did not reveal any focal deficits. SKIN: No rashes. - Labs CBC & Chem 7: 04/05/18 05:17 04/05/18 05:17 Assessment and Plan Assessment: -Spontaneous Large right-sided pneumothorax, s/p chest tube placement, patient may have emphysema- which was never diagnosed, possibly ruptured a pleural bleb. Thoravent placement for recurrent pneumothorax. Worsening pneumothorax, scheduled for VATS, wedge resection,Pleurodesis. 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, improving with IV fluids -Macrocytosis: -Alcohol withdrawal -Elevated hematocrit: Secondary to hemoconcentration, improved -Leukocytosis reactive secondary to pneumothorax Plan: Continue on current medication regime ,monitoring and symptomatic treatment. Pain management. Aggressive pulmonary toileting with incentive spirometer reinforced. NPO,VAT's pending. Close Monitoring of electrolytes with repeat labs ordered for a.m. The impression and plan of care has been dictated as directed. : I performed a history and examination of this patient, discussed the same with the dictator. I agree with the dictator's note ,documented as a scribe. Any additional findings or plans will be noted.
[2018-04-06] MEDS ORDERED: ceFAZolin IN SWFI 2 GM/20 ML SYRINGE IVP ONE (14:00)
[2018-04-06] MEDS ORDERED: NEOSTIGMINE 1 MG/ML 10 ML VIAL ONE (14:01)
[2018-04-06] MEDS ORDERED: PHENYLEPHRINE-0.9% NACL SYG 1 MG/10 ML SYRINGE ONE (14:01)
[2018-04-06] MEDS ORDERED: MIDAZOLAM 2 MG/2 ML VIAL ONE (14:01)
[2018-04-06] MEDS ORDERED: fentaNYL (PF) 50 MCG/ML 2 ML AMP ONE (14:01)
[2018-04-06] MEDS ORDERED: PROPOFOL 10 MG/ML 20 ML VIAL IV ONE (14:01)
[2018-04-06] MEDS ORDERED: SUCCINYLCHOLINE CHLORIDE 100 MG/5 ML SYR IV ONE (14:01)
[2018-04-06] MEDS ORDERED: LACTATED RINGERS 1,000 ML IV ONE (14:01)
[2018-04-06] MEDS ORDERED: HYDROmorphone (PF) 1 MG/ML ONE (14:01)
[2018-04-06] MEDS ORDERED: ROCURONIUM BROMIDE 10 MG/ML 10 ML VIAL IV ONE (14:01)
[2018-04-06] MEDS ORDERED: GLYCOPYRROLATE 0.2 MG/ML 2 ML VIAL ONE (14:01)
[2018-04-06] MEDS ORDERED: LIDOCAINE 1% INJ 10MG/ML (20 ML MDV) ONE (14:01)
[2018-04-06] MEDS ORDERED: BUPIVACAINE (PF) 0.25% 30 ML VIAL SQ ONE (15:14)
--- NOTE | 2018-04-06 16:52 | XR ---
EXAMINATION TYPE: XR chest 1V portable DATE OF EXAM: 04/06/2018 COMPARISON: Today HISTORY: Chest tube placement TECHNIQUE: Single frontal view of the chest is obtained. FINDINGS: There is a large right chest tube with the tip at the right lung apex. There is approximat e 20% right pneumothorax. Trachea is midline. There is some consolidation or atelectasis at the right lung apex. There is no pleural effusion. There is no heart failure. Heart size is normal. IMPRESSION: There is a new right chest tube with significant improvement in the right-sided pneumoth orax compared to exam earlier today at 6:00 AM. There is new atelectasis and consolidation that measu res 4 cm at the right lung apex.
[2018-04-06] MEDS ORDERED: ONDANSETRON 4 MG/2 ML VIAL IVP PRN (17:10)
[2018-04-06] MEDS ORDERED: DEXTROSE 5%-0.45% NACL 1,000 ML IV SCH (17:10)
[2018-04-06] MEDS: IPRATROPIUM-ALBUTEROL 3 ML NEB IH SCH ×2 (17:19→19:43)
[2018-04-06] MEDS: HEPARIN SODIUM,PORCINE 5,000 UNIT/ML 1 ML VIAL SQ SCH (17:20)
[2018-04-06] MEDS ORDERED: amLODIPine 5 MG TAB PO STA (17:36)
--- NOTE | 2018-04-06 17:44 | OP ---
OPERATIVE REPORT DATE OF SURGERY: 04/06/2018 PREOPERATIVE DIAGNOSIS: Spontaneous right pneumothorax. POSTOPERATIVE DIAGNOSIS: Spontaneous right pneumothorax. PROCEDURE: 1. Right VATS with stapling of apical bleb. 2. Mechanical pleurodesis. SURGEON: Lennox Elaine MD INSPECTOR PACKER GLASS CONTAINER: Giovany ARCE ANESTHESIA: General. SPECIMEN: Right upper lobe apex. ESTIMATED BLOOD LOSS: 10 mL COMPLICATIONS: None. INDICATION: The patient is a 58-year-old female with a past medical history significant for seizure disorder and tobacco use who presented to the hospital with shortness of breath, chest pain and right upper back pain. She was diagnosed in the emergency department with a spontaneous right-sided pneumothorax. A chest tube was placed. She was monitored in the hospital and the chest tube was removed. However, she had recurrence of the pneumothorax almost instantly. A Thoravent was then placed to help re-expand the lung. Right VATS with resection of apical blebs and mechanical pleurodesis were recommended. The risks, benefits and alternatives to these procedures were discussed with the patient. All of her questions were answered. Consent was obtained. FINDINGS: There were multiple blebs noted in the apex of the right upper lobe. The remaining right upper lobe, right middle lobe and right lower lobe had no obvious blebs on their surface. PROCEDURE IN DETAIL: The patient was taken to the operating room, placed supine on the operative table. A double-lumen endotracheal tube was placed by the anesthesia service. Its position was confirmed using a bronchoscope. The patient was then placed in the left lateral decubitus position with the right side up. Care was taken to pad all pressure points. The right chest and flank were then prepped and draped in the usual sterile fashion. With the right lung down, an incision was created just inferior to the tip of the scapula. Dissection was taken down through the subcutaneous tissue. The right pleural space was entered bluntly, and it was clear that the lung was deflated. Two additional working ports were then placed under direct vision. Initial inspection revealed a cluster of blebs at the apex of the right upper lobe. No additional blebs were noted in the right middle lobe or the right lower lobe. Using an Endo-NICK stapling device with multiple purple loads, the apex of the right upper lobe was resected. The specimen was then sent to Pathology. No additional bleb disease was noted. Mechanical pleurodesis was then performed throughout the right chest using a Bovie pad. Hemostasis was assured. A straight 28-Bermudian chest tube was placed and directed posteriorly toward the apex. The lung was then inflated under direct vision and appeared to expand nicely. The wounds were then closed in layers. Sterile dressings were applied. The previously placed Thoravent had already been removed at the beginning of the case. There was no evidence of obvious air leak at the completion of the case. The patient was extubated, returned to the recovery room in stable condition. MMODL / IJN: [id number] /
[2018-04-06] MEDS: ACETAMINOPHEN TAB 325 MG TAB PO PRN (20:16)
[2018-04-07] MEDS: ceFAZolin IN SWFI 2 GM/20 ML SYRINGE IVP SCH ×2 (00:13→11:00)
[2018-04-07] MEDS: HEPARIN SODIUM,PORCINE 5,000 UNIT/ML 1 ML VIAL SQ SCH ×4 (00:18→23:41)
[2018-04-07] MEDS: KETOROLAC 30 MG/ML 1 ML VIAL IVP SCH ×2 (00:18→05:08)
[2018-04-07 05:26] LABS: Basophils % (A) 0 %; Eosinophils # (A) 0.1 k/uL (0-0.7); Eosinophils % (A) 2 %; HCT 39.1 % (34.0-46.0); HGB 13.3 gm/dL (11.4-16.0); Lymphocytes % (A) 14 %; MCH 34.7 pg (25.0-35.0); MCHC 33.9 g/dL (31.0-37.0); MCV 102.2 fL (80.0-100.0); Mean Platelet Volume 7.8; Monocytes # (A) 0.7 k/uL (0-1.0); Monocytes % (A) 10 %; Neutrophils % (A) 72 %; Platelet Count 246 k/uL (150-450); RBC 3.83 m/uL (3.80-5.40); RDW 11.8 % (11.5-15.5)
[2018-04-07 05:51] LABS: Anion Gap 9 mmol/L; Blood Urea Nitrogen 6 mg/dL (7-17); Calcium 8.9 mg/dL (8.4-10.2); Carbon Dioxide 27 mmol/L (22-30); Chloride 95 mmol/L (98-107); Glucose 114 mg/dL (74-99); Magnesium 1.8 mg/dL (1.6-2.3); Phosphorus 5.2 mg/dL (2.5-4.5); Potassium 4.5 mmol/L (3.5-5.1); Sodium 131 mmol/L (137-145)
[2018-04-07] MEDS ORDERED: Magnesium Replacement Protocol 1 EACH MISC MISCELLANE PRN (06:07)
[2018-04-07] MEDS: MAGNESIUM SULFATE-D5W PMX 1 GM in DEXTROSE/WATER 1 100ML.BAG IVPB SCH ×2 (06:35→09:01)
[2018-04-07] MEDS ORDERED: SENNOSIDES 8.6 MG TAB PO PRN (07:48)
[2018-04-07] MEDS ORDERED: MAGNESIUM HYDROXIDE 2,400 MG/10 ML CUP PO PRN (07:48)
[2018-04-07] MEDS: IPRATROPIUM-ALBUTEROL 3 ML NEB IH SCH ×4 (08:09→19:23)
[2018-04-07] MEDS: amLODIPine 5 MG TAB PO SCH (08:47)
[2018-04-07] MEDS: PANTOPRAZOLE 40 MG TABLET PO SCH (08:47)
[2018-04-07] MEDS: DIVALPROEX 500 MG TABLET.DR PO SCH ×2 (08:48→20:03)
[2018-04-07] MEDS: ACETAMINOPHEN TAB 325 MG TAB PO PRN ×3 (09:02→22:04)
[2018-04-07] MEDS: traMADol 50 MG TAB PO PRN ×3 (09:02→20:02)
--- NOTE | 2018-04-07 09:19 | XR ---
EXAMINATION TYPE: XR chest 1V DATE OF EXAM: 04/07/2018 COMPARISON: 04/06/2018 HISTORY: Post VATS TECHNIQUE: Single frontal view of the chest is obtained. FINDINGS: Right apical area of the mass or consolidation stable. Persistent right apical small pneum othorax measuring less than 10%. Chest tube noted. Underlying COPD suggested. Subcutaneous edema no o vert failure. IMPRESSION: 1. Postsurgical change with right apical nodular area of consolidation or mass. 2. Stable right apical pneumothorax measuring less than 10%. Subcutaneous emphysema persists.
--- NOTE | 2018-04-07 09:27 | P.PN ---
Subjective Progress Note Date: 04/07/18 Principal diagnosis: Right-sided spontaneous pneumothorax, status post placement of right pleural chest tube to the emergency room physicians with subsequent thoravent placement by Dr. Garcia. Previous medical history of plasma cell granuloma resection in 2008 and subsequent seizures, previous tobacco dependence, COPD, daily EtOH use. POD #1 right video-assisted thoracoscopic stapling of apical blebs with mechanical pleurodesis. The patient is currently sitting in the recliner in the intensive care unit in no acute distress. Does complain of postsurgical pain in the right chest wall especially with coughing, does not want ordered Dilaudid. Denies shortness of breath. Right pleural chest tube remained on continuous wall suction overnight , no air leak present this morning, placed to waterseal. Objective - Vital Signs Vital signs: Vital Signs Temp 97.9 F 04/07/18 04:00 Pulse 92 04/07/18 08:18 Resp 20 04/07/18 04:44 BP 139/83 04/07/18 04:00 Pulse Ox 93 L 04/07/18 04:00 Intake & Output 04/06/18 04/07/18 04/07/18 18:59 06:59 18:59 Intake Total 650 480 40 Output Total 1060 805 0 Balance -410 -325 40 Weight 50.1 kg Intake: IV 650 480 40 Dextrose 5%-0.45% NaCl 1, 480 40 000 ml @ 40 mls/hr IV . Q24H [facility] Rx#:[id number] Output: Chest Tube Drainage 0 55 0 Chest Tube Right Lateral 45 Chest Chest Tube Right Mid- 10 0 Axillary Chest Thora-Vent Right Anterior 0 0 Chest Urine 1050 750 0 Estimated Blood Loss 10 Other: Voiding Method Toilet Bedpan Bedside Commode # Voids 1 - Constitutional General appearance: Present: cooperative, no acute distress - Respiratory Details: Lungs sounds diminished bilaterally, right greater than left. Respirations even , nonlabored. Currently on room air with oxygen saturation 95%. Able to achieve 1000 mL on incentive spirometry. Weak cough. Right pleural chest tube to continuous wall suction, 45 mL serosanguineous drainage overnight, 120 mL since surgery, no air leak present, placed to waterseal. - Cardiovascular Details: S1, S2 present. Regular rate and rhythm, sinus rhythm on telemetry. Palpable peripheral pulses bilaterally. No edema present. No calf pain or tenderness noted. - Gastrointestinal Gastrointestinal Comment(s): Abdomen soft, nontender, nondistended. Active bowel sounds present 4 quadrants. Tolerating diet. - Genitourinary Genitourinary Comment(s): Continues to void clear, yellow urine. - Integumentary Integumentary Comment(s): Skin is warm and dry with evidence of good perfusion. - Neurologic Neurologic: Present: CNII-XII intact - Musculoskeletal Musculoskeletal: Present: gait normal, strength equal bilaterally - Psychiatric Psychiatric: Present: A&O x's 3, appropriate affect, intact judgment & insight - Allied health notes Allied health notes reviewed: nursing - Labs CBC & Chem 7: 04/07/18 04:43 04/07/18 04:43 Labs: Abnormal Lab Results - Last 24 Hours (Table) 04/07/18 04/07/18 Range/Units 04:43 04:43 MCV 102.2 H (80.0-100.0) fL Sodium 131 L (137-145) mmol/L Chloride 95 L (98-107) mmol/L BUN 6 L (7-17) mg/dL Creatinine 0.48 L (0.52-1.04) mg/dL Glucose 114 H (74-99) mg/dL Phosphorus 5.2 H (2.5-4.5) mg/dL - Imaging and Cardiology Chest x-ray: image reviewed Assessment and Plan (1) Tobacco dependence in remission Current Visit: No Status: Resolved Code(s): F17.201 - NICOTINE DEPENDENCE, UNSPECIFIED, IN REMISSION SNOMED Code(s): 344712499 (2) Alcohol use Current Visit: Yes Status: Chronic Code(s): Z78.9 - OTHER SPECIFIED HEALTH STATUS SNOMED Code(s): 411166 (3) Spontaneous pneumothorax Current Visit: Yes Status: Acute Code(s): J93.83 - OTHER PNEUMOTHORAX SNOMED Code(s): 93292624 Plan: 1. Continue right pleural chest tube to waterseal for another 24 hours. Monitor for air leak. 2. Encourage incentive spirometry use 10 times every hour while awake. 3. Pain control with current medication regimen. Discontinue Dilaudid. Tramadol added. 4. Increase activity, ambulate in hallway. 5. Daily chest x-rays. 6. GI/DVT prophylaxis. 7. Medical management per primary care service. 8. Patient may be transferred out of ICU from our standpoint. Orders placed after OR yesterday were for 3 S. cardiac stepdown unit. 9. More recommendations to follow. Time with Patient: Greater than 30
--- NOTE | 2018-04-07 09:42 | P.PN ---
Subjective Progress Note Date: 04/07/18 Principal diagnosis: Right sided spontaneous pneumothorax, status post right VATS with stapling of apical bleb chemical pleurodesis, postop day 1 Acute right sided spontaneous pneumothorax This is a very pleasant 58-year-old female patient who follows with Dr. Horton as her primary care physician. History of seizure disorder with previous craniotomy in 2008. She does have a 25+ year smoking history however quit 10 years ago. Daily alcohol consumption. She presented here to the emergency room yesterday with complaints of shortness of breath and right shoulder and chest pain. She is found to have a large spontaneous pneumothorax. Status post chest tube insertion. She is seen today in consultation on the regular medical floor. She is awake and alert in no acute distress. Chest tube remains in place. There is currently a leak. Placed to waterseal. Cardiothoracic is following. She is currently maintaining good O2 saturations in the 90s on room air. She's afebrile. Hemodynamically stable. White count 13.3. Hemoglobin 16.4. MCV 100.3. Sodium 128. Creatinine 0.48. AST 43. Patient is seen again today 04/03/2018 in follow-up on the regular medical floor. She is awake and alert in no acute distress. Maintaining good O2 saturations in the 90s on room air. Currently sitting up in a chair at the bedside. He denies any worsening shortness of breath, cough or congestion. Today's chest x-ray revealed a small right apical pneumothorax. Chest tube is in place. Currently clamped per CT services. Patient was reevaluated today on 04/04/2018, patient developed the collapse of her lung after removal of the chest tube yesterday, hence I came back at night, and placed a thoracic vent in the right chest. Patient is doing much better, she is breathing a lot easier, she is relatively asymptomatic, chest x-ray continues to show a small right apical pneumothorax. Continues to have a bit of an air leak in the pleural VAC. Otherwise the patient is doing great, chest x-ray was reviewed, all labs were reviewed, no major issues at present except for the fact that the patient is in the ICU, and I will move her back to the floor today. She didn't sleep well last night, she was bothered with the noise in the ICU. Patient was reevaluated today on 04/05/2018, remains in the ICU, last night, the patient became quite short of breath, and required 3 placed on 6 L nasal cannula. Chest x-ray done showed 3 collapse of the right lung in spite of the thoracic vent tube was in proper place. Then the nurses were instructed to inspect of the tubing leading to the pleural VAC, and apparently there was some clots noted in the tubing, patient responded to stripping the tubing, and suddenly the patient improved, follow-up chest x-ray showed reexpansion of the right lung, and very minimal residual apical pneumothorax noted. Today the lung is fully expanded, very minimal right apical pneumothorax persists, patient does have a small air leak, hence she will continue with the thoracic vent on suction. Patient is feeling better today compared to last night, she is on room air, saturating in the 90s. Quite anxious to be discharged home, but she is clearly not ready to be discharged yet. On 04/07/2018 patient seen in follow-up in the intensive care unit. Postop day 1 status post VATS procedure, with stapling of the apical blebs, and mechanical pleurodesis. Patient is currently on room air, with a pulse ox of 93%, afebrile , hemodynamically stable, she is sitting up in the recliner, in no acute distress, right-sided chest tube is in place and there has been 45 mL of serosanguineous output in the Pleur-evac since yesterday, patient is working on her incentive spirometry, is able to achieve 1000 mL on the today. No air leak present this morning. CT surgery placed a to waterseal this morning. IV fluids include D5.45 at a rate of 40 ML per hour, she is tolerating oral diet. chest x-ray showed postsurgical changes with right apical nodular area of consolidation or mass, stable right apical pneumothorax measuring less than 10%. 's with subcutaneous emphysema. Objective - Vital Signs Vital signs: Vital Signs Temp 97.9 F 04/07/18 04:00 Pulse 92 04/07/18 08:18 Resp 20 04/07/18 04:44 BP 139/83 04/07/18 04:00 Pulse Ox 93 L 04/07/18 04:00 Intake & Output 04/06/18 04/07/18 04/07/18 18:59 06:59 18:59 Intake Total 650 480 40 Output Total 1060 805 0 Balance -410 -325 40 Weight 50.1 kg Intake: IV 650 480 40 Dextrose 5%-0.45% NaCl 1, 480 40 000 ml @ 40 mls/hr IV . Q24H [facility] Rx#:[id number] Output: Chest Tube Drainage 0 55 0 Chest Tube Right Lateral 45 Chest Chest Tube Right Mid- 10 0 Axillary Chest Thora-Vent Right Anterior 0 0 Chest Urine 1050 750 0 Estimated Blood Loss 10 Other: Voiding Method Toilet Bedpan Bedside Commode # Voids 1 - Exam GENERAL EXAM: Alert, pleasant, 58-year-old white female on room air comfortable in no apparent distress. HEAD: Normocephalic/atraumatic. EYES: Normal reaction of pupils, equal size. Conjunctiva pink, sclera white. NOSE: Clear with pink turbinates. THROAT: No erythema or exudates. NECK: No masses, no JVD, no thyroid enlargement, no adenopathy. CHEST: No chest wall deformity. Symmetrical expansion. Right-sided chest tube is in place, to waterseal, with small amount of serosanguineous output, no air leak noted. Right-sided chest wall incision, covered with surgical dressing, LUNGS: Equal air entry with no crackles, wheeze, rhonchi or dullness. Diminished breath sounds over right lower base CVS: Regular rate and rhythm, normal S1 and S2, no gallops, no murmurs, no rubs ABDOMEN: Soft, nontender. No hepatosplenomegaly, normal bowel sounds, no guarding or rigidity. EXTREMITIES: No clubbing, no edema, no cyanosis, 2+ pulses and upper and lower extremities. MUSCULOSKELETAL: Muscle strength and tone normal. SPINE: No scoliosis or deformity SKIN: No rashes CENTRAL NERVOUS SYSTEM: Alert and oriented -3. No focal deficits, tone is normal in all 4 extremities. PSYCHIATRIC: Alert and oriented -3. Appropriate affect. Intact judgment and insight. - Labs CBC & Chem 7: 04/07/18 04:43 04/07/18 04:43 Labs: Abnormal Lab Results - Last 24 Hours (Table) 04/07/18 04/07/18 Range/Units 04:43 04:43 MCV 102.2 H (80.0-100.0) fL Sodium 131 L (137-145) mmol/L Chloride 95 L (98-107) mmol/L BUN 6 L (7-17) mg/dL Creatinine 0.48 L (0.52-1.04) mg/dL Glucose 114 H (74-99) mg/dL Phosphorus 5.2 H (2.5-4.5) mg/dL Assessment and Plan Plan: #1 Dyspnea secondary to a large right spontaneous pneumothorax. Patient was initially admitted, had a chest tube placed by the ER physician, however it was removed yesterday by thoracic surgery, patient developed pneumothorax again, and she had a thoracic vent placed by me on 04/03/2018. #2. Status post VATS with the apical bleb stapling and mechanical pleurodesis, postop day #1 #3 History of chronic tobacco dependence of approximately 25 years however quit 10 years ago. #4 Daily alcohol use. #5 History of brain tumor status post craniotomy. #6 History of seizures. #7 Hyponatremia suspect secondary to alcohol consumption. Improving. Plan: Continue encouraging deep breathing and coughing, today's chest x-ray has been reviewed with Dr. Johnson and showed postsurgical changes with right apical nodular area of consolidation, stable right apical pneumothorax measuring less than 10% and subcutaneous emphysema. Room air pulse ox is 93%, vital signs are stable. Maintain pain control, encourage ambulation. She could be considered for discharge out of the intensive care unit today, to general medical floor. I performed a history & physical examination of the patient and discussed their management with my nurse practitioner, Brenda Turner. I reviewed the nurse practitioner's note and agree with the documented findings and plan of care. Lung sounds are for diminished breath sounds over right lower base. The findings and the impression was discussed with the patient. I attest to the documentation by the nurse practitioner. Time with Patient: Less than 30
[2018-04-07] MEDS: THIAMINE 100 MG TAB PO SCH (12:01)
[2018-04-07] MEDS: MULTIVITAMINS, THERA 1 EACH TAB PO SCH (12:01)
--- NOTE | 2018-04-07 21:54 | P.PN ---
Subjective Progress Note Date: 04/07/18 Interval history:58-year-old female with extensive smoking history 25+ years smoking history quit 10 years ago never was diagnosed with COPD came in with complaints of chest pain, severe sharp pleuritic in nature along with severe shortness of breath progressively worsened over day yesterday patient is found to have large right-sided pneumothorax patient had a chest tube which was now underwater seal patient has right-sided chest tube. Repeat chest x-ray shows significant improvement in the pneumothorax. Patient does drink alcohol on a daily basis presently appears to have mild withdrawals patient is on Ativan CIWA protocol patient drinks about 4 beers per day. Patient has elevated MCV from my alcohol abuse. She is chest pain significantly improved as mild discomfort due to chest tube. She was a little denied any short of breath cough. 04/03/2018 maintained on IV fluid hydration, sodium up to 133. Maintained on CIWA protocol, no DTs. Afebrile, WBC normal. Chest tube currently clamped with no air leak present. Denies chest pain, palpitations or increasing shortness of breath. Denies lightheadedness dizziness or focal deficits. Afebrile. Patient is admitted for pneumothorax. In spite of thoracic vent patient is in requirements underwent a because of collapse of the right lung again because of which patient was transferred to ICU and the tubing was readjusted with the improvement in his or pneumothorax lung is fully expanded today. Patient will be monitored. 04/05/2018 Patient had reexpansion after the clots were removed. Patient appears to have multiple blebs for which patient will undergo VATS and wedge a resection by cardiothoracic surgery tomorrow. 04/06/2018 chest x-ray reporting large right pneumothorax increased in size from prior measuring at least 50% without mediastinal deviation. Currently with Right-sided thoravent. Pain controlled. Denies chest pain, palpitations or increasing shortness of breath .maintaining O2 sats in the mid 90s on room air. Incentive spirometer up to 1000. NPO,scheduled for VATS procedure this afternoon. Telemetry sinus rhythm. 04/07/2018 underwent VATS procedure yesterday with stapling of the apical blebs , mechanical pleurodesis, tolerated procedure well. Maintaining O2 sats of mid 90s on room air. Chest x-ray reporting postsurgical right apical nodular area of consolidation or mass, stable right apical pneumothorax measuring less than 10%, subcutaneous emphysema persists. Incentive spirometer up to 1000. Afebrile. Sodium 131. Constitutional: Denied any fatigue denied any fever. Cardio vascular: denied any chest pain, palpitations Gastrointestinal denied any nausea vomiting Pulmonary: Denied any shortness of breath cough Neurologic denied any new focal deficits Active Medications Acetaminophen (Tylenol Tab) 650 mg PO Q6HR PRN PRN Reason: Mild Pain or Fever > 100.5 Last Admin: 04/07/18 15:45 Dose: 650 mg Albuterol/Ipratropium (Duoneb 0.5 Mg-3 Mg/3 Ml Soln) 3 ml INHALATION RT-QID PRN PRN Reason: Shortness Of Breath Or Wheezing Albuterol/Ipratropium (Duoneb 0.5 Mg-3 Mg/3 Ml Soln) 3 ml IH RT-QID [facility] Last Admin: 04/07/18 19:23 Dose: 3 ml Alprazolam (Xanax) 0.5 mg PO Q6H PRN PRN Reason: Anxiety Amlodipine Besylate (Norvasc) 5 mg PO DAILY [facility] Last Admin: 04/07/18 08:47 Dose: 5 mg Divalproex Sodium (Depakote) 500 mg PO BID [facility] Last Admin: 04/07/18 20:03 Dose: 500 mg Heparin Sodium (Porcine) (Heparin) 5,000 unit SQ Q8HR [facility] Last Admin: 04/07/18 15:45 Dose: 5,000 unit Lorazepam (Ativan) 0.5 mg IV Q4HR PRN PRN Reason: Anxiety Last Admin: 04/06/18 02:14 Dose: 0.5 mg Magnesium Hydroxide (Milk Of Magnesia) 2,400 mg PO DAILY PRN PRN Reason: Constipation Miscellaneous Information (Magnesium Per Protocol) 1 each MISCELLANE DAILY PRN ; Protocol PRN Reason: Per Protocol Multivitamins (Theragran) 1 each PO DAILY@1200 [facility] Last Admin: 04/07/18 12:01 Dose: 1 each Naloxone HCl (Narcan) 0.2 mg IV Q2M PRN PRN Reason: Opioid Reversal Ondansetron HCl (Zofran) 4 mg IVP Q8HR PRN PRN Reason: Nausea And Vomiting Pantoprazole Sodium (Protonix) 40 mg PO AC-BRKFST [facility] Last Admin: 04/07/18 08:47 Dose: 40 mg Senna (Senokot) 8.6 mg PO DAILY PRN PRN Reason: Constipation Sodium Chloride (Saline Flush) 10 ml IV BID [facility] Last Admin: 04/07/18 20:04 Dose: 10 ml Thiamine HCl (Vitamin B-1) 100 mg PO DAILY@1200 [facility] Last Admin: 04/07/18 12:01 Dose: 100 mg Tramadol HCl (Ultram) 50 mg PO QID PRN PRN Reason: Pain Last Admin: 04/07/18 20:02 Dose: 50 mg Objective - Vital Signs Vital signs: Vital Signs Temp 97.7 F 04/07/18 12:00 Pulse 88 04/07/18 15:05 Resp 24 04/07/18 12:00 BP 131/87 04/07/18 12:00 Pulse Ox 97 04/07/18 08:00 Intake & Output 04/06/18 04/07/18 04/07/18 18:59 06:59 18:59 Intake Total 650 480 160 Output Total 1060 805 312 Balance -410 -325 -152 Weight 50.1 kg 50.1 kg Intake: IV 650 480 160 Dextrose 5%-0.45% NaCl 1, 480 160 000 ml @ 40 mls/hr IV . Q24H [facility] Rx#:[id number] Output: Chest Tube Drainage 0 55 12 Chest Tube Right Lateral 45 Chest Chest Tube Right Mid- 10 12 Axillary Chest Thora-Vent Right Anterior 0 0 Chest Urine 1050 750 300 Estimated Blood Loss 10 Other: Voiding Method Toilet Bedpan Bedside Commode Bedside Commode # Voids 1 - Exam GENERAL: The patient is sitting up in chair, alert and oriented x3, not in any acute distress. HEENT: Pupils are round and equally reacting to light. EOMI. No scleral icterus. No conjunctival pallor. Normocephalic, atraumatic. Oral mucosa moist CARDIOVASCULAR: S1 and S2 present. No murmurs, rubs, or gallops. PULMONARY: Respiratory effort normal/nonlabored. Diminished right lung base more diminished than left. No wheezing, rhonchi or crackles. Right CT with serosanguineous drainage .Right CT surgical dressing clean dry and intact. ABDOMEN: Soft, nontender, nondistended, positive bowel sounds. No palpable organomegaly. MUSCULOSKELETAL: No joint swelling or deformity. EXTREMITIES: No cyanosis, clubbing, or pedal edema. NEUROLOGICAL: Gross neurological examination did not reveal any focal deficits. SKIN: No rashes. - Labs CBC & Chem 7: 04/07/18 04:43 04/07/18 04:43 Labs: Abnormal Lab Results - Last 24 Hours (Table) 04/07/18 04/07/18 Range/Units 04:43 04:43 MCV 102.2 H (80.0-100.0) fL Sodium 131 L (137-145) mmol/L Chloride 95 L (98-107) mmol/L BUN 6 L (7-17) mg/dL Creatinine 0.48 L (0.52-1.04) mg/dL Glucose 114 H (74-99) mg/dL Phosphorus 5.2 H (2.5-4.5) mg/dL Assessment and Plan Assessment: -Spontaneous Large right-sided pneumothorax, s/p chest tube placement, patient may have emphysema- which was never diagnosed, possibly ruptured a pleural bleb. Thoravent placement for recurrent pneumothorax. Worsening pneumothorax, S /P VATS, wedge resection,Pleurodesis. 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, improving with IV fluids -Macrocytosis: -Alcohol withdrawal -Elevated hematocrit: Secondary to hemoconcentration, improved -Leukocytosis reactive secondary to pneumothorax Plan: Continue on current medication regime ,monitoring and symptomatic treatment. Pain management. Aggressive pulmonary toileting with incentive spirometer reinforced. Close Monitoring of electrolytes with repeat labs ordered for a.m. The impression and plan of care has been dictated as directed. : I performed a history and examination of this patient, discussed the same with the dictator. I agree with the dictator's note ,documented as a scribe. Any additional findings or plans will be noted.
[2018-04-08 04:51] LABS: Basophils % (A) 0 %; Eosinophils # (A) 0.2 k/uL (0-0.7); Eosinophils % (A) 3 %; HCT 34.2 % (34.0-46.0); HGB 11.9 gm/dL (11.4-16.0); Lymphocytes # (A) 1.5 k/uL (1.0-4.8); Lymphocytes % (A) 23 %; MCH 35.4 pg (25.0-35.0); MCHC 34.7 g/dL (31.0-37.0); MCV 101.9 fL (80.0-100.0); Mean Platelet Volume 8.2; Monocytes # (A) 0.8 k/uL (0-1.0); Monocytes % (A) 12 %; Neutrophils # (A) 3.7 k/uL (1.3-7.7); Neutrophils % (A) 59 %; Platelet Count 189 k/uL (150-450); RBC 3.36 m/uL (3.80-5.40); RDW 11.8 % (11.5-15.5); WBC 6.3 k/uL (3.8-10.6)
[2018-04-08 05:04] LABS: Anion Gap 4 mmol/L; Blood Urea Nitrogen 9 mg/dL (7-17); Calcium 8.7 mg/dL (8.4-10.2); Carbon Dioxide 29 mmol/L (22-30); Chloride 96 mmol/L (98-107); Glucose 99 mg/dL (74-99); Magnesium 2.1 mg/dL (1.6-2.3); Potassium 4.6 mmol/L (3.5-5.1); Sodium 129 mmol/L (137-145)
[2018-04-08] MEDS: PANTOPRAZOLE 40 MG TABLET PO SCH (07:11)
--- NOTE | 2018-04-08 07:46 | XR ---
EXAMINATION TYPE: XR chest 2V DATE OF EXAM: 04/08/2018 COMPARISON: Prior chest x-ray 04/07/2018 HISTORY: Status post VATS, pleurodesis TECHNIQUE: Frontal and lateral views of the chest are obtained. FINDINGS: There is not a significant interval change. Right-sided chest tube is curling at the apex. No sizable pneumothorax. Minimal blunting of the right costophrenic angle is noted. Heart size is st able. Apical density in the right is stable. There are cardiac leads. There is subcutaneous emphysema . IMPRESSION: Satisfactory postprocedural chest x-ray.
[2018-04-08] MEDS: IPRATROPIUM-ALBUTEROL 3 ML NEB IH SCH ×4 (08:24→20:02)
[2018-04-08] MEDS: amLODIPine 5 MG TAB PO SCH (09:21)
[2018-04-08] MEDS: HEPARIN SODIUM,PORCINE 5,000 UNIT/ML 1 ML VIAL SQ SCH ×2 (09:21→15:27)
[2018-04-08] MEDS: DIVALPROEX 500 MG TABLET.DR PO SCH ×2 (09:21→21:24)
[2018-04-08] MEDS: ACETAMINOPHEN TAB 325 MG TAB PO PRN ×2 (09:28→18:38)
--- NOTE | 2018-04-08 10:01 | P.PN ---
Subjective Progress Note Date: 04/08/18 Principal diagnosis: Right sided spontaneous pneumothorax, status post right VATS with stapling of apical bleb chemical pleurodesis, postop day 1 Acute right sided spontaneous pneumothorax This is a very pleasant 58-year-old female patient who follows with Dr. Horton as her primary care physician. History of seizure disorder with previous craniotomy in 2008. She does have a 25+ year smoking history however quit 10 years ago. Daily alcohol consumption. She presented here to the emergency room yesterday with complaints of shortness of breath and right shoulder and chest pain. She is found to have a large spontaneous pneumothorax. Status post chest tube insertion. She is seen today in consultation on the regular medical floor. She is awake and alert in no acute distress. Chest tube remains in place. There is currently a leak. Placed to waterseal. Cardiothoracic is following. She is currently maintaining good O2 saturations in the 90s on room air. She's afebrile. Hemodynamically stable. White count 13.3. Hemoglobin 16.4. MCV 100.3. Sodium 128. Creatinine 0.48. AST 43. Patient is seen again today 04/03/2018 in follow-up on the regular medical floor. She is awake and alert in no acute distress. Maintaining good O2 saturations in the 90s on room air. Currently sitting up in a chair at the bedside. He denies any worsening shortness of breath, cough or congestion. Today's chest x-ray revealed a small right apical pneumothorax. Chest tube is in place. Currently clamped per CT services. Patient was reevaluated today on 04/04/2018, patient developed the collapse of her lung after removal of the chest tube yesterday, hence I came back at night, and placed a thoracic vent in the right chest. Patient is doing much better, she is breathing a lot easier, she is relatively asymptomatic, chest x-ray continues to show a small right apical pneumothorax. Continues to have a bit of an air leak in the pleural VAC. Otherwise the patient is doing great, chest x-ray was reviewed, all labs were reviewed, no major issues at present except for the fact that the patient is in the ICU, and I will move her back to the floor today. She didn't sleep well last night, she was bothered with the noise in the ICU. Patient was reevaluated today on 04/05/2018, remains in the ICU, last night, the patient became quite short of breath, and required 3 placed on 6 L nasal cannula. Chest x-ray done showed 3 collapse of the right lung in spite of the thoracic vent tube was in proper place. Then the nurses were instructed to inspect of the tubing leading to the pleural VAC, and apparently there was some clots noted in the tubing, patient responded to stripping the tubing, and suddenly the patient improved, follow-up chest x-ray showed reexpansion of the right lung, and very minimal residual apical pneumothorax noted. Today the lung is fully expanded, very minimal right apical pneumothorax persists, patient does have a small air leak, hence she will continue with the thoracic vent on suction. Patient is feeling better today compared to last night, she is on room air, saturating in the 90s. Quite anxious to be discharged home, but she is clearly not ready to be discharged yet. On 04/07/2018 patient seen in follow-up in the intensive care unit. Postop day 1 status post VATS procedure, with stapling of the apical blebs, and mechanical pleurodesis. Patient is currently on room air, with a pulse ox of 93%, afebrile , hemodynamically stable, she is sitting up in the recliner, in no acute distress, right-sided chest tube is in place and there has been 45 mL of serosanguineous output in the Pleur-evac since yesterday, patient is working on her incentive spirometry, is able to achieve 1000 mL on the today. No air leak present this morning. CT surgery placed a to waterseal this morning. IV fluids include D5.45 at a rate of 40 ML per hour, she is tolerating oral diet. chest x-ray showed postsurgical changes with right apical nodular area of consolidation or mass, stable right apical pneumothorax measuring less than 10%. 's with subcutaneous emphysema. On 04/08/2018 patient seen in follow-up in the intensive care unit. She is sitting up in the chair, eating breakfast, appetite is good, no acute complaints , no events overnight, patient is on room air pulse ox is 96%, afebrile, hemodynamically stable, today's chest x-ray has been reviewed with Dr. Johnson, and shows sided chest tube curling at the apex, no sizable pneumothorax, minimal blunting of the right costophrenic angle, subcutaneous emphysema. Deep density in the right lung is stable in appearance. No IVs, or drips. Wedge biopsy is still pending at this time. There has been minimal output from the right chest tube, with thin serosanguineous fluid, there has only been 32 mL of output from the chest tube in the last 24 hours. Lung sounds are clear, diminished at the bases. Patient has been tolerating ambulation. Objective - Vital Signs Vital signs: Vital Signs Temp 98.5 F 04/08/18 04:00 Pulse 103 H 04/08/18 09:00 Resp 16 04/08/18 08:00 BP 134/78 04/08/18 08:00 Pulse Ox 96 04/08/18 08:00 Intake & Output 04/07/18 04/08/18 04/08/18 18:59 06:59 18:59 Intake Total 160 120 120 Output Total 312 20 0 Balance -152 100 120 Weight 50.1 kg 51.6 kg Intake: IV 160 Dextrose 5%-0.45% NaCl 1, 160 000 ml @ 40 mls/hr IV . Q24H [facility] Rx#:[id number] Oral 120 120 Output: Chest Tube Drainage 12 20 0 Chest Tube Right Mid- 12 20 0 Axillary Chest Thora-Vent Right Anterior 0 Chest Urine 300 0 Other: Voiding Method Bedside Commode Toilet # Voids 1 0 1 - Exam GENERAL EXAM: Alert, pleasant, 58-year-old white female on room air comfortable in no apparent distress. HEAD: Normocephalic/atraumatic. EYES: Normal reaction of pupils, equal size. Conjunctiva pink, sclera white. NOSE: Clear with pink turbinates. THROAT: No erythema or exudates. NECK: No masses, no JVD, no thyroid enlargement, no adenopathy. CHEST: No chest wall deformity. Symmetrical expansion. Right-sided chest tube is in place, currently clamped, with small amount of serosanguineous output. Right-sided chest wall incision, covered with surgical dressing, LUNGS: Equal air entry with no crackles, wheeze, rhonchi or dullness. Diminished breath sounds over right lower base CVS: Regular rate and rhythm, normal S1 and S2, no gallops, no murmurs, no rubs ABDOMEN: Soft, nontender. No hepatosplenomegaly, normal bowel sounds, no guarding or rigidity. EXTREMITIES: No clubbing, no edema, no cyanosis, 2+ pulses and upper and lower extremities. MUSCULOSKELETAL: Muscle strength and tone normal. SPINE: No scoliosis or deformity SKIN: No rashes CENTRAL NERVOUS SYSTEM: Alert and oriented -3. No focal deficits, tone is normal in all 4 extremities. PSYCHIATRIC: Alert and oriented -3. Appropriate affect. Intact judgment and insight. - Labs CBC & Chem 7: 04/08/18 04:36 04/08/18 04:36 Labs: Abnormal Lab Results - Last 24 Hours (Table) 04/08/18 04/08/18 Range/Units 04:36 04:36 RBC 3.36 L (3.80-5.40) m/uL MCV 101.9 H (80.0-100.0) fL MCH 35.4 H (25.0-35.0) pg Sodium 129 L (137-145) mmol/L Chloride 96 L (98-107) mmol/L Creatinine 0.44 L (0.52-1.04) mg/dL Assessment and Plan Plan: #1 Dyspnea secondary to a large right spontaneous pneumothorax. Patient was initially admitted, had a chest tube placed by the ER physician, however it was removed yesterday by thoracic surgery, patient developed pneumothorax again, and she had a thoracic vent placed by me on 04/03/2018. #2. Status post VATS with the apical bleb stapling and mechanical pleurodesis, postop day #2 #3 History of chronic tobacco dependence of approximately 25 years however quit 10 years ago. #4 Daily alcohol use. #5 History of brain tumor status post craniotomy. #6 History of seizures. #7 Hyponatremia suspect secondary to alcohol consumption. Asymptomatic. Plan: Patient remains stable, she is awaiting a bed on the medical surgical floor. Chest x-ray has been reviewed with Dr. Johnson, and showed right chest tube in the apex of the right lung, no pneumothorax. Patient is on room air, no difficulty breathing, tolerating ambulation, tolerating oral intake. No specific complaints. Stable to transfer to general medical floor today. I performed a history & physical examination of the patient and discussed their management with my nurse practitioner, Brenda Turner. I reviewed the nurse practitioner's note and agree with the documented findings and plan of care. Lung sounds are for diminished breath sounds over right lower base. The findings and the impression was discussed with the patient. I attest to the documentation by the nurse practitioner. Time with Patient: Less than 30
--- NOTE | 2018-04-08 11:02 | P.PN ---
Subjective Progress Note Date: 04/08/18 Principal diagnosis: Right-sided spontaneous pneumothorax, status post placement of right pleural chest tube to the emergency room physicians with subsequent thoravent placement by Dr. Garcia. Previous medical history of plasma cell granuloma resection in 2008 and subsequent seizures, previous tobacco dependence, COPD, daily EtOH use. POD #2 right video-assisted thoracoscopic stapling of apical blebs with mechanical pleurodesis. The patient is currently sitting in the recliner in the intensive care unit in no acute distress. States surgical pain is better controlled with addition of tramadol. Denies shortness of breath. Right pleural chest tube remained on waterseal for the last 24 hours, no air leak present this morning, clamped. Objective - Vital Signs Vital signs: Vital Signs Temp 98.5 F 04/08/18 04:00 Pulse 103 H 04/08/18 09:00 Resp 16 04/08/18 08:00 BP 134/78 04/08/18 08:00 Pulse Ox 96 04/08/18 08:00 Intake & Output 04/07/18 04/08/18 04/08/18 18:59 06:59 18:59 Intake Total 160 120 120 Output Total 312 20 0 Balance -152 100 120 Weight 50.1 kg 51.6 kg Intake: IV 160 Dextrose 5%-0.45% NaCl 1, 160 000 ml @ 40 mls/hr IV . Q24H [facility] Rx#:[id number] Oral 120 120 Output: Chest Tube Drainage 12 20 0 Chest Tube Right Mid- 12 20 0 Axillary Chest Thora-Vent Right Anterior 0 Chest Urine 300 0 Other: Voiding Method Bedside Commode Toilet # Voids 1 0 1 - Constitutional General appearance: Present: cooperative, no acute distress - Respiratory Details: Lungs sounds diminished bilaterally. Respirations even, nonlabored. Currently on room air with oxygen saturation 94%. Able to achieve 1000 mL on incentive spirometry. Weak cough. Right pleural chest tube to waterseal, 10 mL serous drainage overnight, 40 mL in the last 24 hours, no air leak present, clamped. - Cardiovascular Details: S1, S2 present. Regular rate and rhythm, sinus rhythm on telemetry. Palpable peripheral pulses bilaterally. No edema present. No calf pain or tenderness noted. - Gastrointestinal Gastrointestinal Comment(s): Abdomen soft, nontender, nondistended. Active bowel sounds present 4 quadrants. Tolerating diet. - Genitourinary Genitourinary Comment(s): Continues to void clear, yellow urine. - Integumentary Integumentary Comment(s): Skin is warm and dry with evidence of good perfusion. - Neurologic Neurologic: Present: CNII-XII intact - Musculoskeletal Musculoskeletal: Present: gait normal, strength equal bilaterally - Psychiatric Psychiatric: Present: A&O x's 3, appropriate affect, intact judgment & insight - Allied health notes Allied health notes reviewed: nursing - Labs CBC & Chem 7: 04/08/18 04:36 04/08/18 04:36 Labs: Abnormal Lab Results - Last 24 Hours (Table) 04/08/18 04/08/18 Range/Units 04:36 04:36 RBC 3.36 L (3.80-5.40) m/uL MCV 101.9 H (80.0-100.0) fL MCH 35.4 H (25.0-35.0) pg Sodium 129 L (137-145) mmol/L Chloride 96 L (98-107) mmol/L Creatinine 0.44 L (0.52-1.04) mg/dL - Imaging and Cardiology Chest x-ray: report reviewed, image reviewed Assessment and Plan (1) Tobacco dependence in remission Current Visit: No Status: Resolved Code(s): F17.201 - NICOTINE DEPENDENCE, UNSPECIFIED, IN REMISSION SNOMED Code(s): 179102099 (2) Alcohol use Current Visit: Yes Status: Chronic Code(s): Z78.9 - OTHER SPECIFIED HEALTH STATUS SNOMED Code(s): 351268 (3) Spontaneous pneumothorax Current Visit: Yes Status: Acute Code(s): J93.83 - OTHER PNEUMOTHORAX SNOMED Code(s): 65256722 Plan: 1. Right pleural chest tube clamped this morning. Will check for air leak after 4 hours. If no air leak will discontinue chest tube. 2. Encourage incentive spirometry use 10 times every hour while awake. 3. Pain control with current medication regimen. 4. Increase activity, ambulate in hallway. 5. Daily chest x-rays. 6. GI/DVT prophylaxis. 7. Medical management per primary care service. 8. Patient may be transferred out of ICU from our standpoint. Orders placed after OR were for 3 S. cardiac stepdown unit. 9. More recommendations to follow. Time with Patient: Greater than 30
[2018-04-08] MEDS: traMADol 50 MG TAB PO PRN ×2 (12:42→21:23)
[2018-04-08] MEDS: THIAMINE 100 MG TAB PO SCH (12:42)
[2018-04-08] MEDS: MULTIVITAMINS, THERA 1 EACH TAB PO SCH (12:42)
--- NOTE | 2018-04-08 20:01 | P.PN ---
Subjective Progress Note Date: 04/08/18 Interval history:58-year-old female with extensive smoking history 25+ years smoking history quit 10 years ago never was diagnosed with COPD came in with complaints of chest pain, severe sharp pleuritic in nature along with severe shortness of breath progressively worsened over day yesterday patient is found to have large right-sided pneumothorax patient had a chest tube which was now underwater seal patient has right-sided chest tube. Repeat chest x-ray shows significant improvement in the pneumothorax. Patient does drink alcohol on a daily basis presently appears to have mild withdrawals patient is on Ativan CIWA protocol patient drinks about 4 beers per day. Patient has elevated MCV from my alcohol abuse. She is chest pain significantly improved as mild discomfort due to chest tube. She was a little denied any short of breath cough. 04/03/2018 maintained on IV fluid hydration, sodium up to 133. Maintained on CIWA protocol, no DTs. Afebrile, WBC normal. Chest tube currently clamped with no air leak present. Denies chest pain, palpitations or increasing shortness of breath. Denies lightheadedness dizziness or focal deficits. Afebrile. Patient is admitted for pneumothorax. In spite of thoracic vent patient is in requirements underwent a because of collapse of the right lung again because of which patient was transferred to ICU and the tubing was readjusted with the improvement in his or pneumothorax lung is fully expanded today. Patient will be monitored. 04/05/2018 Patient had reexpansion after the clots were removed. Patient appears to have multiple blebs for which patient will undergo VATS and wedge a resection by cardiothoracic surgery tomorrow. 04/06/2018 chest x-ray reporting large right pneumothorax increased in size from prior measuring at least 50% without mediastinal deviation. Currently with Right-sided thoravent. Pain controlled. Denies chest pain, palpitations or increasing shortness of breath .maintaining O2 sats in the mid 90s on room air. Incentive spirometer up to 1000. NPO,scheduled for VATS procedure this afternoon. Telemetry sinus rhythm. 04/07/2018 underwent VATS procedure yesterday with stapling of the apical blebs , mechanical pleurodesis, tolerated procedure well. Maintaining O2 sats of mid 90s on room air. Chest x-ray reporting postsurgical right apical nodular area of consolidation or mass, stable right apical pneumothorax measuring less than 10%, subcutaneous emphysema persists. Incentive spirometer up to 1000. Afebrile. Sodium 131. 04/08/2018 no overnight events. Chest x-ray reporting no significant change, no sizable pneumothorax, minimal blunting of right costophrenic angle, subcutaneous emphysema. Maintaining O2 sat on room air 96%. Wedge biopsy pending. Ambulating, tolerating exertion well. Sodium 129. Constitutional: Denied any fatigue denied any fever. Cardio vascular: denied any chest pain, palpitations Gastrointestinal denied any nausea vomiting Pulmonary: Denied any shortness of breath cough Neurologic denied any new focal deficits Active Medications Acetaminophen (Tylenol Tab) 650 mg PO Q6HR PRN PRN Reason: Mild Pain or Fever > 100.5 Last Admin: 04/07/18 15:45 Dose: 650 mg Albuterol/Ipratropium (Duoneb 0.5 Mg-3 Mg/3 Ml Soln) 3 ml INHALATION RT-QID PRN PRN Reason: Shortness Of Breath Or Wheezing Albuterol/Ipratropium (Duoneb 0.5 Mg-3 Mg/3 Ml Soln) 3 ml IH RT-QID [facility] Last Admin: 04/07/18 19:23 Dose: 3 ml Alprazolam (Xanax) 0.5 mg PO Q6H PRN PRN Reason: Anxiety Amlodipine Besylate (Norvasc) 5 mg PO DAILY [facility] Last Admin: 04/07/18 08:47 Dose: 5 mg Divalproex Sodium (Depakote) 500 mg PO BID [facility] Last Admin: 04/07/18 20:03 Dose: 500 mg Heparin Sodium (Porcine) (Heparin) 5,000 unit SQ Q8HR [facility] Last Admin: 04/07/18 15:45 Dose: 5,000 unit Lorazepam (Ativan) 0.5 mg IV Q4HR PRN PRN Reason: Anxiety Last Admin: 04/06/18 02:14 Dose: 0.5 mg Magnesium Hydroxide (Milk Of Magnesia) 2,400 mg PO DAILY PRN PRN Reason: Constipation Miscellaneous Information (Magnesium Per Protocol) 1 each MISCELLANE DAILY PRN ; Protocol PRN Reason: Per Protocol Multivitamins (Theragran) 1 each PO DAILY@1200 [facility] Last Admin: 04/07/18 12:01 Dose: 1 each Naloxone HCl (Narcan) 0.2 mg IV Q2M PRN PRN Reason: Opioid Reversal Ondansetron HCl (Zofran) 4 mg IVP Q8HR PRN PRN Reason: Nausea And Vomiting Pantoprazole Sodium (Protonix) 40 mg PO AC-BRKFST [facility] Last Admin: 04/07/18 08:47 Dose: 40 mg Senna (Senokot) 8.6 mg PO DAILY PRN PRN Reason: Constipation Sodium Chloride (Saline Flush) 10 ml IV BID [facility] Last Admin: 04/07/18 20:04 Dose: 10 ml Thiamine HCl (Vitamin B-1) 100 mg PO DAILY@1200 [facility] Last Admin: 04/07/18 12:01 Dose: 100 mg Tramadol HCl (Ultram) 50 mg PO QID PRN PRN Reason: Pain Last Admin: 04/07/18 20:02 Dose: 50 mg Objective - Vital Signs Vital signs: Vital Signs Temp 98.5 F 04/08/18 04:00 Pulse 80 04/08/18 08:35 Resp 14 04/08/18 04:00 BP 127/83 04/08/18 04:00 Pulse Ox 94 L 04/08/18 04:00 Intake & Output 04/07/18 04/08/18 04/08/18 18:59 06:59 18:59 Intake Total 160 120 Output Total 312 20 Balance -152 100 Weight 50.1 kg 51.6 kg Intake: IV 160 Dextrose 5%-0.45% NaCl 1, 160 000 ml @ 40 mls/hr IV . Q24H [facility] Rx#:[id number] Oral 120 Output: Chest Tube Drainage 12 20 Chest Tube Right Mid- 12 20 Axillary Chest Thora-Vent Right Anterior 0 Chest Urine 300 Other: Voiding Method Bedside Commode Toilet # Voids 1 0 - Exam GENERAL: The patient is sitting up in chair, alert and oriented x3, no acute distress. HEENT: Pupils are round and equally reacting to light. EOMI. No scleral icterus. Conjunctiva pink, Normocephalic, atraumatic. Oral mucosa moist CARDIOVASCULAR: S1 and S2 present. No murmurs, rubs, or gallops. PULMONARY: Respiratory effort normal/nonlabored. Diminished right lung base more diminished than left. No wheezing, rhonchi or crackles. Right CT with serosanguineous drainage .Right CT surgical dressing clean dry and intact. Small non-spreading subcu emphysema at surgical site. ABDOMEN: Soft, nontender, nondistended, positive bowel sounds. No palpable organomegaly. EXTREMITIES: No cyanosis, clubbing, or pedal edema. NEUROLOGICAL: Gross neurological examination did not reveal any focal deficits. Mood and affect normal. SKIN: No rashes. - Labs CBC & Chem 7: 04/08/18 04:36 04/08/18 04:36 Labs: Abnormal Lab Results - Last 24 Hours (Table) 04/08/18 04/08/18 Range/Units 04:36 04:36 RBC 3.36 L (3.80-5.40) m/uL MCV 101.9 H (80.0-100.0) fL MCH 35.4 H (25.0-35.0) pg Sodium 129 L (137-145) mmol/L Chloride 96 L (98-107) mmol/L Creatinine 0.44 L (0.52-1.04) mg/dL Assessment and Plan Assessment: -Spontaneous Large right-sided pneumothorax, s/p chest tube placement.Thoravent placement for recurrent pneumothorax. Worsening pneumothorax, S/P VATS, wedge resection,Pleurodesis. 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 -Macrocytosis: -Alcohol withdrawal -Elevated hematocrit: Secondary to hemoconcentration, improved -Leukocytosis reactive secondary to pneumothorax -History of nicotine dependence Plan: Continue on current medication regime ,monitoring and symptomatic treatment. Cleared by thermostatic controls supervisor for transfer out of ICU. Aggressive pulmonary toileting with incentive spirometer reinforced. Close Monitoring of electrolytes with repeat labs ordered for a.m. The impression and plan of care has been dictated as directed. : I performed a history and examination of this patient, discussed the same with the dictator. I agree with the dictator's note ,documented as a scribe. Any additional findings or plans will be noted.
[2018-04-08 21:50] VITALS: RESP 17
[2018-04-09] MEDS: HEPARIN SODIUM,PORCINE 5,000 UNIT/ML 1 ML VIAL SQ SCH ×2 (00:50→08:41)
[2018-04-09] MEDS: PANTOPRAZOLE 40 MG TABLET PO SCH (06:25)
[2018-04-09] MEDS: ACETAMINOPHEN TAB 325 MG TAB PO PRN (06:27)
[2018-04-09 07:26] LABS: Basophils % (A) 1 %; Eosinophils # (A) 0.2 k/uL (0-0.7); Eosinophils % (A) 3 %; HCT 40.4 % (34.0-46.0); HGB 13.2 gm/dL (11.4-16.0); Lymphocytes # (A) 1.8 k/uL (1.0-4.8); Lymphocytes % (A) 25 %; MCH 34.6 pg (25.0-35.0); MCHC 32.7 g/dL (31.0-37.0); MCV 105.8 fL (80.0-100.0); Macrocytosis Slight; Mean Platelet Volume 7.6; Monocytes # (A) 0.8 k/uL (0-1.0); Monocytes % (A) 11 %; Neutrophils # (A) 4.1 k/uL (1.3-7.7); Neutrophils % (A) 58 %; Platelet Count 254 k/uL (150-450); RBC 3.82 m/uL (3.80-5.40); RDW 11.8 % (11.5-15.5); WBC 7.1 k/uL (3.8-10.6)
[2018-04-09 07:42] LABS: Anion Gap 7 mmol/L; Blood Urea Nitrogen 8 mg/dL (7-17); Calcium 9.7 mg/dL (8.4-10.2); Carbon Dioxide 30 mmol/L (22-30); Chloride 94 mmol/L (98-107); Glucose 82 mg/dL (74-99); Sodium 131 mmol/L (137-145)
[2018-04-09] MEDS: amLODIPine 5 MG TAB PO SCH (08:46)
[2018-04-09] MEDS: DIVALPROEX 500 MG TABLET.DR PO SCH (08:46)
[2018-04-09] MEDS: IPRATROPIUM-ALBUTEROL 3 ML NEB IH SCH ×3 (08:59→17:16)
--- NOTE | 2018-04-09 09:00 | XR ---
EXAMINATION TYPE: XR chest 2V DATE OF EXAM: 04/09/2018 COMPARISON: 04/08/2018 TECHNIQUE: PA and lateral views submitted. HISTORY: Post VATS FINDINGS: There is approximate 5% right apical pneumothorax. Postsurgical change and irregular masslike density right upper lobe. Subsegmental changes involving the right upper lobe laterally. Small right pleural effusion or pleural thickening. Chest tube is been removed. Underlying COPD suspected. Left apical p leural thickening noted. Subcutaneous emphysema noted anteriorly on the lateral view. Degenerative ch vianey of the spine. IMPRESSION: 1. Chest tube removal with approximate 5% right apical pneumothorax. 2. Persistent irregular density or mass right upper lobe. 3. Correlate for COPD.
[2018-04-09 10:46] VITALS: TEMP 97.6
[2018-04-09] MEDS: MULTIVITAMINS, THERA 1 EACH TAB PO SCH (12:46)
[2018-04-09] MEDS: THIAMINE 100 MG TAB PO SCH (12:46)
[2018-04-09] MEDS: traMADol 50 MG TAB PO PRN (12:46)
--- NOTE | 2018-04-09 13:59 | P.PN ---
Subjective Progress Note Date: 04/09/18 Principal diagnosis: Spontaneous right-sided pneumothorax. This is a very pleasant 58-year-old female patient who follows with Dr. Horton as her primary care physician. History of seizure disorder with previous craniotomy in 2008. She does have a 25+ year smoking history however quit 10 years ago. Daily alcohol consumption. She presented here to the emergency room yesterday with complaints of shortness of breath and right shoulder and chest pain. She is found to have a large spontaneous pneumothorax. Status post chest tube insertion. She is seen today in consultation on the regular medical floor. She is awake and alert in no acute distress. Chest tube remains in place. There is currently a leak. Placed to waterseal. Cardiothoracic is following. She is currently maintaining good O2 saturations in the 90s on room air. She's afebrile. Hemodynamically stable. White count 13.3. Hemoglobin 16.4. MCV 100.3. Sodium 128. Creatinine 0.48. AST 43. Patient is seen again today 04/03/2018 in follow-up on the regular medical floor. She is awake and alert in no acute distress. Maintaining good O2 saturations in the 90s on room air. Currently sitting up in a chair at the bedside. He denies any worsening shortness of breath, cough or congestion. Today's chest x-ray revealed a small right apical pneumothorax. Chest tube is in place. Currently clamped per CT services. Patient was reevaluated today on 04/04/2018, patient developed the collapse of her lung after removal of the chest tube yesterday, hence I came back at night, and placed a thoracic vent in the right chest. Patient is doing much better, she is breathing a lot easier, she is relatively asymptomatic, chest x-ray continues to show a small right apical pneumothorax. Continues to have a bit of an air leak in the pleural VAC. Otherwise the patient is doing great, chest x-ray was reviewed, all labs were reviewed, no major issues at present except for the fact that the patient is in the ICU, and I will move her back to the floor today. She didn't sleep well last night, she was bothered with the noise in the ICU. Patient was reevaluated today on 04/05/2018, remains in the ICU, last night, the patient became quite short of breath, and required 3 placed on 6 L nasal cannula. Chest x-ray done showed 3 collapse of the right lung in spite of the thoracic vent tube was in proper place. Then the nurses were instructed to inspect of the tubing leading to the pleural VAC, and apparently there was some clots noted in the tubing, patient responded to stripping the tubing, and suddenly the patient improved, follow-up chest x-ray showed reexpansion of the right lung, and very minimal residual apical pneumothorax noted. Today the lung is fully expanded, very minimal right apical pneumothorax persists, patient does have a small air leak, hence she will continue with the thoracic vent on suction. Patient is feeling better today compared to last night, she is on room air, saturating in the 90s. Quite anxious to be discharged home, but she is clearly not ready to be discharged yet. On 04/07/2018 patient seen in follow-up in the intensive care unit. Postop day 1 status post VATS procedure, with stapling of the apical blebs, and mechanical pleurodesis. Patient is currently on room air, with a pulse ox of 93%, afebrile , hemodynamically stable, she is sitting up in the recliner, in no acute distress, right-sided chest tube is in place and there has been 45 mL of serosanguineous output in the Pleur-evac since yesterday, patient is working on her incentive spirometry, is able to achieve 1000 mL on the today. No air leak present this morning. CT surgery placed a to waterseal this morning. IV fluids include D5.45 at a rate of 40 ML per hour, she is tolerating oral diet. chest x-ray showed postsurgical changes with right apical nodular area of consolidation or mass, stable right apical pneumothorax measuring less than 10%. 's with subcutaneous emphysema. On 04/08/2018 patient seen in follow-up in the intensive care unit. She is sitting up in the chair, eating breakfast, appetite is good, no acute complaints , no events overnight, patient is on room air pulse ox is 96%, afebrile, hemodynamically stable, today's chest x-ray has been reviewed with Dr. Johnson, and shows sided chest tube curling at the apex, no sizable pneumothorax, minimal blunting of the right costophrenic angle, subcutaneous emphysema. Deep density in the right lung is stable in appearance. No IVs, or drips. Wedge biopsy is still pending at this time. There has been minimal output from the right chest tube, with thin serosanguineous fluid, there has only been 32 mL of output from the chest tube in the last 24 hours. Lung sounds are clear, diminished at the bases. Patient has been tolerating ambulation. The patient is seen today 04/09/2018 in follow-up on the selective care unit. She is awake and alert in no acute distress. She denies any worsening shortness of breath, cough or congestion. Her chest tube has been removed. She is maintaining good O2 saturations in the upper 90s on room air. She's been afebrile. Hemodynamically stable. Today's chest x-ray reveals approximate 5% right apical pneumothorax. There is a persistent irregular density or mass in the right upper lobe. Wedge resection of the right upper lobe revealed subpleural fibrosis with bleb formation and emphysematous changes consistent with the clinical history of spontaneous pneumothorax. White count 7.1. Hemoglobin 13.2. Creatinine 0.53. Objective - Vital Signs Vital signs: Vital Signs Temp 97.6 F 04/09/18 08:00 Pulse 80 04/09/18 12:14 Resp 17 04/09/18 03:23 BP 110/75 04/09/18 08:00 Pulse Ox 99 04/09/18 08:00 Intake & Output 04/08/18 04/09/18 04/09/18 18:59 06:59 18:59 Intake Total 120 1100 Output Total 0 0 Balance 120 1100 Weight 51.5 kg Intake: Oral 120 1100 Output: Chest Tube Drainage 0 Chest Tube Right Mid- 0 Axillary Chest Drainage 0 0 Right Lateral Chest 0 0 Urine 0 Other: Voiding Method Toilet Toilet # Voids 1 1 - Exam GENERAL EXAM: Alert, active, comfortable in no apparent distress. On room air. HEAD: Normocephalic. EYES: Normal reaction of pupils, equal size. NOSE: Clear with pink turbinates. THROAT: No erythema or exudates. NECK: No masses, no JVD. CHEST: No chest wall deformity. Surgical sites clean dry well approximated. LUNGS: Equal air entry with no crackles, wheeze, rhonchi or dullness. CVS: S1 and S2 normal with no audible murmur, regular rhythm. ABDOMEN: No hepatosplenomegaly, normal bowel sounds, no guarding or rigidity. SPINE: No scoliosis or deformity SKIN: No rashes CENTRAL NERVOUS SYSTEM: No focal deficits, tone is normal in all 4 extremities. EXTREMITIES: There is no peripheral edema. No clubbing, no cyanosis. Peripheral pulses are intact. - Labs CBC & Chem 7: 04/09/18 06:41 04/09/18 06:41 Labs: Abnormal Lab Results - Last 24 Hours (Table) 04/09/18 04/09/18 Range/Units 06:41 06:41 MCV 105.8 H (80.0-100.0) fL Sodium 131 L (137-145) mmol/L Chloride 94 L (98-107) mmol/L Assessment and Plan Assessment: Impression: #1 Dyspnea secondary to a large right spontaneous pneumothorax. Status post right-sided chest tube placement in the emergency room with subsequent removal by thoracic surgery. The patient developed a recurrent pneumothorax and a sore event was placed on 04/03/2018. Subsequently removed yesterday. #2 Status post VATS procedure with apical bleb stapling and mechanical pleurodesis, postoperative day #3. #3 Daily alcohol use. #4 History of brain tumor status post craniotomy. #5 History of seizures. #6 Hyponatremia suspect secondary to alcohol consumption. #7 History of chronic tobacco dependence of approximately 25 years however quit 10 years ago. Plan: The patient was seen and evaluated by Dr. Johnson Chest x-ray and labs reviewed. She is cleared for discharge from the pulmonary standpoint. She will follow up with Dr. Garcia in our office in 1 week's time. We'll repeat a chest x-ray then. She will undergo pulmonary function testing to evaluate the severity of her COPD and make further recommendations regarding maintenance medications. She and her are encouraged to call sooner with any recurrence of symptoms or other questions or concerns. I, the cosigning physician, performed a history & physical examination of the patient. Lungs sounds clear, diminished. Maintaining good O2 saturations in the 90s on room air. I discussed the assessment and plan of care with my nurse practitioner, Swati Dennis. I attest to the above note as dictated by her.
[2018-04-09 14:43] VITALS: BP 133/76; PULSE 91
--- NOTE | 2018-04-09 18:57 | P.DS ---
Providers Date of admission: 04/01/18 19:58 Expected date of discharge: 04/09/18 Attending physician: Major Osullivan Consults: 04/01/18 19:58 Consult Physician Stat Consulting Provider: Katie Senior Consult Reason/Comments: Pneumothorax Do you want consulting provider notified?: Already Contacted Dr. Garcia Primary care physician: Kelsea Veliz Hospital Course: Final Diagnoses: -Spontaneous Large right-sided pneumothorax, s/p chest tube placement.Thoravent placement for recurrent pneumothorax. Worsening pneumothorax, S/P VATS, wedge resection,Pleurodesis. Removed yesterday. 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 -Macrocytosis: -Alcohol withdrawal -Elevated hematocrit: Secondary to hemoconcentration, improved -Leukocytosis reactive secondary to pneumothorax -History of nicotine dependence Hospital course:Interval history:58-year-old female with extensive smoking history 25+ years smoking history quit 10 years ago never was diagnosed with COPD came in with complaints of chest pain, severe sharp pleuritic in nature along with severe shortness of breath progressively worsened over day yesterday patient is found to have large right-sided pneumothorax patient had a chest tube which was now underwater seal patient has right-sided chest tube. Repeat chest x-ray shows significant improvement in the pneumothorax. Patient does drink alcohol on a daily basis presently appears to have mild withdrawals patient is on Ativan CIWA protocol patient drinks about 4 beers per day. Patient has elevated MCV from my alcohol abuse. She is chest pain significantly improved as mild discomfort due to chest tube. She was a little denied any short of breath cough. 04/03/2018 maintained on IV fluid hydration, sodium up to 133. Maintained on CIWA protocol, no DTs. Afebrile, WBC normal. Chest tube currently clamped with no air leak present. Denies chest pain, palpitations or increasing shortness of breath. Denies lightheadedness dizziness or focal deficits. Afebrile. Patient is admitted for pneumothorax. In spite of thoracic vent patient is in requirements underwent a because of collapse of the right lung again because of which patient was transferred to ICU and the tubing was readjusted with the improvement in his or pneumothorax lung is fully expanded today. Patient will be monitored. 04/05/2018 Patient had reexpansion after the clots were removed. Patient appears to have multiple blebs for which patient will undergo VATS and wedge a resection by cardiothoracic surgery tomorrow. 04/06/2018 chest x-ray reporting large right pneumothorax increased in size from prior measuring at least 50% without mediastinal deviation. Currently with Right-sided thoravent. Pain controlled. Denies chest pain, palpitations or increasing shortness of breath .maintaining O2 sats in the mid 90s on room air. Incentive spirometer up to 1000. NPO,scheduled for VATS procedure this afternoon. Telemetry sinus rhythm. 04/07/2018 underwent VATS procedure yesterday with stapling of the apical blebs , mechanical pleurodesis, tolerated procedure well. Maintaining O2 sats of mid 90s on room air. Chest x-ray reporting postsurgical right apical nodular area of consolidation or mass, stable right apical pneumothorax measuring less than 10%, subcutaneous emphysema persists. Incentive spirometer up to 1000. Afebrile. Sodium 131. 04/08/2018 no overnight events. Chest x-ray reporting no significant change, no sizable pneumothorax, minimal blunting of right costophrenic angle, subcutaneous emphysema. Maintaining O2 sat on room air 96%. Wedge biopsy pending. Ambulating, tolerating exertion well. Sodium 129. 04/09/2018 wedge resection of right upper lobe revealed subpleural fibrosis with bleb formation, emphysematous changes consistent with spontaneous pneumothorax. Chest tubes discontinued yesterday, maintaining O2 sats in the higher 90s on room air. Chest x-ray today reporting 5% right apical pneumothorax, persistent irregular density or mass right upper lobe. Outpatient follow-up chest x-ray,PFTs in 1 week with pulmonary. Significant clinical improvement. Patient has been cleared by both pulmonary and cardiothoracic surgery. Patient is being discharged home in a stable condition with guarded prognosis. - Exam GENERAL: The patient is sitting up in chair, alert and oriented x3, no acute distress. CARDIOVASCULAR: S1 and S2 present. No murmurs, rubs, or gallops. PULMONARY: Equal air entry ,Lungs bilateral clear with no rhonchi, crackles or wheezes ABDOMEN: Soft, nontender, nondistended, positive bowel sounds. No palpable organomegaly. NEUROLOGICAL: No focal deficits. The impression and plan of care has been dictated as directed. : I performed a history and examination of this patient, discussed the same with the dictator. I agree with the dictator's note ,documented as a scribe. Any additional findings or plans will be noted. Time taken: 35 minutes Patient Condition at Discharge: Stable Plan - Discharge Summary New Discharge Prescriptions: New Acetaminophen Tab [Tylenol] 650 mg PO Q6HR PRN tab PRN Reason: Mild Pain Or Fever > 100.5 Multivitamins, Thera [Multivitamin (formulary)] 1 each PO DAILY@1200 #30 tab Sennosides [Senokot] 8.6 mg PO DAILY PRN tab PRN Reason: Constipation Thiamine [Vitamin B-1] 100 mg PO DAILY@1200 #30 tab Ibuprofen [Motrin] 600 mg PO Q6HR PRN #20 tab PRN Reason: Pain Albuterol Inhaler [Ventolin Hfa Inhaler] 2 puff INHALATION RT-Q6H PRN #1 inhaler PRN Reason: Shortness Of Breath Pantoprazole [Protonix] 40 mg PO AC-BRKFST #30 tablet. Continue Folic Acid 1 mg PO DAILY Divalproex [Depakote] 500 mg PO BID Cyanocobalamin [Vitamin B-12] 500 mcg PO DAILY Discharge Medication List Divalproex [Depakote] 500 mg PO BID 10/30/15 [History] Folic Acid 1 mg PO DAILY 10/30/15 [History] Cyanocobalamin [Vitamin B-12] 500 mcg PO DAILY 04/01/18 [History] Acetaminophen Tab [Tylenol] 650 mg PO Q6HR PRN tab 04/09/18 [Rx] Albuterol Inhaler [Ventolin Hfa Inhaler] 2 puff INHALATION RT-Q6H PRN #1 inhaler 04/09/18 [Rx] Ibuprofen [Motrin] 600 mg PO Q6HR PRN #20 tab 04/09/18 [Rx] Multivitamins, Thera [Multivitamin (formulary)] 1 each PO DAILY@1200 #30 tab [Rx] Pantoprazole [Protonix] 40 mg PO AC-BRKFST #30 tablet. 04/09/18 [Rx] Sennosides [Senokot] 8.6 mg PO DAILY PRN tab 04/09/18 [Rx] Thiamine [Vitamin B-1] 100 mg PO DAILY@1200 #30 tab 04/09/18 [Rx] Follow up Appointment(s)/Referral(s): Lake Garcia MD [STAFF PHYSICIAN] - 04/30/18 3:00 pm (Latest available follow up appointment.) Kelsea Veliz DO [Primary Care Provider] - 3 Days () Lennox Elaine MD [STAFF PHYSICIAN] - 04/17/18 10:15 am Ambulatory/Diagnostic Orders: Basic Metabolic Panel [LAB.AMB] Time Frame: 3 Days, Location: None Selected Patient Instructions/Handouts: Spontaneous Pneumothorax (DC), How to Use an Incentive Spirometer (DC) Activity/Diet/Wound Care/Special Instructions: Pending final DC recommendations and clearance from pulmonary . ALternate Tylenol with Motrin prn as ordered above Chest tube dressing to remain in place until FridayApril 10, after which patient may discontinue dressing, shower daily, and replace dressing only if chest tube site is draining. No heavy lifting for 2 weeks. No driving for 2 weeks. Any questions or concerns you can call ESTEE Tamez @ . Discharge Disposition: HOME SELF-CARE
== END 2018-04-09 16:12 | disposition home or self-care (01) | DRG 164 ==
LOC: EC 17:11 → 4MS4W 19:58 → 2SICU 04-03 19:00 → 3SCARD 04-08 12:18
PROVIDERS: ADMIT Internal Medicine; ATTEND Internal Medicine
PROC: 0W9930Z Drainage of Right Pleural Cavity with Drainage Device, Percutaneous Approach (ICD-10-PCS; 2018-04-01)
PROC: 0W9930Z Drainage of Right Pleural Cavity with Drainage Device, Percutaneous Approach (ICD-10-PCS; 2018-04-03)
PROC: 0BQC4ZZ Repair Right Upper Lung Lobe, Percutaneous Endoscopic Approach (ICD-10-PCS; principal; 2018-04-08)
PROC: 0W9940Z Drainage of Right Pleural Cavity with Drainage Device, Percutaneous Endoscopic Approach (ICD-10-PCS; 2018-04-08)
PROC: 0B5N4ZZ Destruction of Right Pleura, Percutaneous Endoscopic Approach (ICD-10-PCS; 2018-04-08)
DX: J93.11 Primary spontaneous pneumothorax (principal); E87.1 Hypo-osmolality and hyponatremia; F10.239 Alcohol dependence with withdrawal, unspecified; J93.82 Other air leak; J98.2 Interstitial emphysema; J43.9 Emphysema, unspecified; D75.89 Other specified diseases of blood and blood-forming organs; F17.201 Nicotine dependence, unspecified, in remission; G40.909 Epilepsy, unspecified, not intractable, without status epilepticus; Z79.899 Other long term (current) drug therapy
CPT/HCPCS: 32551; 36415; 71045; 71046; 71250; 80048; 80053; 82150; 82550; 82553; 83690; 83735; 83880; 84100; 84484; 85025; 85027; 85379; 85610; 85730; 88307; 93005; 94640; 94760; 96361; 96374; 96375; 96376; 99291

== ENCOUNTER 2019-10-22 18:06 | Observation (INO) | payer OTHER ==
[2019-10-22] MEDS ORDERED: LABETALOL 5 MG/ML VIAL MDV IVP STA (20:45)
[2019-10-22 21:09] LABS: Basophils % (A) 1 %; Eosinophils # (A) 0.1 k/uL (0-0.7); Eosinophils % (A) 2 %; HCT 43.9 % (34.0-46.0); HGB 14.8 gm/dL (11.4-16.0); Lymphocytes # (A) 1.5 k/uL (1.0-4.8); Lymphocytes % (A) 27 %; MCHC 33.7 g/dL (31.0-37.0); MCV 103.7 fL (80.0-100.0); Macrocytosis Slight; Mean Platelet Volume 8.6; Monocytes # (A) 0.6 k/uL (0-1.0); Monocytes % (A) 10 %; Neutrophils # (A) 3.3 k/uL (1.3-7.7); Neutrophils % (A) 59 %; Platelet Count 197 k/uL (150-450); RBC 4.23 m/uL (3.80-5.40); RDW 12.3 % (11.5-15.5); WBC 5.5 k/uL (3.8-10.6)
--- NOTE | 2019-10-22 21:09 | CT ---
EXAMINATION TYPE: CT brain kwadwoine wo con DATE OF EXAM: 10/22/2019 COMPARISON: CT brain 10/16/2008 HISTORY: fall. hx of prior brain injury/sx. CT DLP: 1168.8 mGycm Automated exposure control for dose reduction was used. There is 4.5 x 3.5 cm area of hypodensity in the feng-white matter left posterior parietal lobe and t emporal lobe related to encephalomalacia. There is no midline shift. There is no sign of intracranial hemorrhage. There is old left posterior temporal craniotomy defect. There is slight enlargement of t he occipital horn left lateral ventricle. Sella turcica appears normal. Cervical vertebra show some straightening. There is moderate narrowing of C5-6 disc space with spurri ng of the endplates. The other disc spaces are normal. Facet joints are intact. The skull base is int act. There is normal aeration of the temporal bones. 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 No acute intracr anial abnormality. Mild to moderate spondylotic changes at C5-6. No fracture seen.
[2019-10-22 21:14] LABS: Prothrombin Time 10.4 sec (9.0-12.0)
[2019-10-22 21:16] LABS: Appearance,Urine Clear (Clear); Bilirubin,Urine Negative (Negative); Blood,Urine Negative (Negative); Color,Urine Light Yellow; Glucose,Urine (UA) Negative (Negative); Ketones,Urine Trace (Negative); Leukocyte Esterase,Urine Moderate (Negative); Nitrite,Urine Negative (Negative); PH, Urine 6.5 (5.0-8.0); Protein,Urine Negative (Negative); RBC,Urine 1 /hpf (0-5); Specific Gravity,Urine 1.005 (1.001-1.035); Squamous Epithelial Cell,Urine 1 /hpf (0-4); Urobilinogen,Urine <2.0 mg/dL (<2.0); WBC,Urine 1 /hpf (0-5)
[2019-10-22 21:20] LABS: ALT 164 U/L (4-34); AST 229 U/L (14-36); African American GFR (CKD) >90 (>60 ml/min/1.73 sqM); Alcohol <10 mg/dL; Alkaline Phosphatase 121 U/L (38-126); Anion Gap 11 mmol/L; Blood Urea Nitrogen 9 mg/dL (7-17); Calcium 9.9 mg/dL (8.4-10.2); Carbon Dioxide 28 mmol/L (22-30); Chloride 93 mmol/L (98-107); Glucose 96 mg/dL (74-99); Non-African American GFR(CKD) >90 (>60 ml/min/1.73 sqM); Potassium 4.2 mmol/L (3.5-5.1); Sodium 132 mmol/L (137-145); Total Bilirubin 0.7 mg/dL (0.2-1.3); Total Protein 7.9 g/dL (6.3-8.2)
--- NOTE | 2019-10-22 21:21 | XR ---
EXAMINATION TYPE: XR chest 2V DATE OF EXAM: 10/22/2019 COMPARISON: 04/30/2018 HISTORY: Trauma. Chest pain. TECHNIQUE: 2 views FINDINGS: Heart is normal. Lungs are clear of infiltrate. There is some linear density right upper lo be consistent with scarring. There are no hilar masses. I see no pneumothorax. Thoracic spine is inta ct. IMPRESSION: There is some scarring at the right lung apex unchanged. No acute lung disease. Normal he art.
[2019-10-22 21:34] LABS: Amphetamine Screen,Urine Not Detected (NotDetected); Barbiturate Screen,Urine Not Detected (NotDetected); Benzodiazepines Screen,Urine Not Detected (NotDetected); Cocaine Screen,Urine Not Detected (NotDetected); Methadone Screen, Urine Not Detected (NotDetected); Opiate Screen,Urine Not Detected (NotDetected); Oxycodone Screen, Urine Not Detected (NotDetected); Phencyclidine Screen,Urine Not Detected (NotDetected); Tricyclic Antidepressant,Urine Not Detected (NotDetected); Urn Cannabinoid Scrn Not Detected (NotDetected)
[2019-10-22] MEDS ORDERED: LORazepam 2 MG/ML INJ IV PRN ×3 (22:17)
[2019-10-22] MEDS ORDERED: THIAMINE 100 MG/ML 2 ML VIAL IM STA (22:17)
[2019-10-22] MEDS: THIAMINE 100 MG TAB PO SCH (23:19)
[2019-10-22] MEDS ORDERED: DIPH,PERTUS(ACELL)TETVAC-LF 0.5 ML VIAL IM ONE (23:36)
[2019-10-22] MEDS ORDERED: SODIUM CHLORIDE 0.9% 500 ML 500 ML IV ONE (23:36)
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
--- NOTE | 2019-10-22 23:44 | CT ---
EXAMINATION TYPE: CT abdomen pelvis w con DATE OF EXAM: 10/22/2019 COMPARISON: None HISTORY: abnormal labs CT DLP: 554.8 mGycm Automated exposure control for dose reduction was used. CONTRAST: Performed with IV Contrast, patient injected with 100 mL of Isovue 300. Lung bases are clear. Heart size is normal. There is no pleural effusion. There is no pericardial eff usion. Stomach is intact. Liver gallbladder spleen pancreas appear normal. Bile ducts are not dilated . There is no adrenal mass. Kidneys show satisfactory contrast opacification. There is no hydronephrosi s. Ureters are not dilated. There is normal excretion on the delayed images. There is no retroperiton eal adenopathy. Bladder distends smoothly. There is no inguinal hernia. There is no free fluid in the pelvis. Uterus is anteverted. There are probably some pelvic varicose veins on the left side. Appendix is posterior and appears normal. There is no mesenteric edema. There is no ascites or free a ir. There is no sign of a bowel obstruction. Lumbar vertebra have normal spacing and alignment. There is no compression fracture. Posterior elemen ts are intact. Hip joints are anatomic. The bony pelvis is intact. There is mild sclerosis in the superior aspect of the femoral heads suggestive of some chronic avascu lar necrosis. IMPRESSION: Normal appendix. No sign of acute abdomen and pelvis. Bilateral pelvic varicose veins. 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 No evidence of collapse of the carlo cular surface.
[2019-10-23] MEDS: THIAMINE 100 MG TAB PO SCH (06:54)
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
[2019-10-23 08:53] VITALS: RESP 16; TEMP 97.7
[2019-10-23] MEDS ORDERED: METOPROLOL TARTRATE 25 MG TAB PO SCH (09:00)
[2019-10-23] MEDS ORDERED: DIVALPROEX 500 MG TABLET.DR PO SCH (09:00)
[2019-10-23] MEDS ORDERED: amLODIPine 5 MG TAB PO SCH (09:00)
[2019-10-23] MEDS ORDERED: FOLIC ACID 1 MG TAB PO SCH (09:00)
[2019-10-23] MEDS ORDERED: METOPROLOL TARTRATE 12.5 MG TAB PO SCH (09:00)
[2019-10-23] MEDS ORDERED: HEPARIN SODIUM,PORCINE 5,000 UNIT/ML 1 ML VIAL SQ SCH (09:00)
[2019-10-23] MEDS ORDERED: FAMOTIDINE 20 MG/2 ML VIAL IV SCH (09:00)
[2019-10-23 09:29] LABS: Basophils % (A) 1 %; Eosinophils # (A) 0.1 k/uL (0-0.7); Eosinophils % (A) 1 %; HGB 13.2 gm/dL (11.4-16.0); Lymphocytes # (A) 1.3 k/uL (1.0-4.8); Lymphocytes % (A) 30 %; MCH 34.7 pg (25.0-35.0); MCHC 33.9 g/dL (31.0-37.0); MCV 102.3 fL (80.0-100.0); Macrocytosis Slight; Mean Platelet Volume 8.4; Monocytes # (A) 0.5 k/uL (0-1.0); Monocytes % (A) 12 %; Neutrophils # (A) 2.4 k/uL (1.3-7.7); Neutrophils % (A) 55 %; Platelet Count 173 k/uL (150-450); RBC 3.81 m/uL (3.80-5.40); RDW 12.4 % (11.5-15.5); WBC 4.4 k/uL (3.8-10.6)
[2019-10-23 09:45] LABS: ALT 114 U/L (4-34); AST 118 U/L (14-36); African American GFR (CKD) >90 (>60 ml/min/1.73 sqM); Alkaline Phosphatase 94 U/L (38-126); Anion Gap 8 mmol/L; Bilirubin, Delta 0.2 mg/dL (0.0-0.2); Bilirubin,Unconjugated 0.4 mg/dL (0.0-1.1); Blood Urea Nitrogen 7 mg/dL (7-17); Calcium 9.5 mg/dL (8.4-10.2); Carbon Dioxide 27 mmol/L (22-30); Chloride 97 mmol/L (98-107); Glucose 92 mg/dL (74-99); Magnesium 2.1 mg/dL (1.6-2.3); Non-African American GFR(CKD) >90 (>60 ml/min/1.73 sqM); Potassium 3.9 mmol/L (3.5-5.1); Sodium 132 mmol/L (137-145); Total Bilirubin 0.6 mg/dL (0.2-1.3); Total Protein 6.5 g/dL (6.3-8.2)
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
[2019-10-23] MEDS ORDERED: MULTIVITAMINS, THERA 1 EACH TAB PO SCH (12:00)
[2019-10-23 14:40] VITALS: BP 170/98; PULSE 84
--- NOTE | 2019-10-23 15:12 | ECHOF ---
Referral Reason: MEASUREMENTS -------- HEIGHT: 160.0 cm WEIGHT: 52.2 kg BP: RVIDd: 1.6 cm (< 3.3) IVSd: 0.8 cm (0.6 - 1.1) LVIDd: 4.0 cm (3.9 - 5.3) LVPWd: 1.1 cm (0.6 - 1.1) EDV(Teich): 69 ml IVSs: 1.1 cm LVIDs: 3.0 cm LVPWs: 1.7 cm %IVS Thck: 31 % ESV(Teich): 35 ml EF(Teich): 49 % %FS: 24 % SV(Teich): 34 ml IVC: 1.0 cm LVLd A4C: 7.2 cm LVEDV MOD A4C: 86 ml LVLs A4C: 6.5 cm LVESV MOD A4C: 34 ml LVEF MOD A4C: 60 % SV MOD A4C: 52 ml LALs A4C: 3.2 cm LAAs A4C: 10.6 cm LAESV A-L A4C: 29 ml LAESV MOD A4C: 25 ml LALs A2C: 3.7 cm LAAs A2C: 10.5 cm LAESV A-L A2C: 25 ml LAESV MOD A2C: 23 ml LAESV(A-L): 29 ml LAESV Index (A-L): 19.03 ml/m Ao Diam: 2.5 cm (2.0 - 3.7) AV Cusp: 1.6 cm (1.5 - 2.6) LA Diam: 2.9 cm (2.7 - 3.8) MV EXCURSION: 10.738 mm (> 18.000) MV EF SLOPE: 83 mm/s (70 - 150) EPSS: 1.0 cm MV E Zacarias: 0.79 m/s MV DecT: 190 ms MV Dec Jeff Davis: 4.2 m/s MV A Zacarias: 0.98 m/s MV E/A Ratio: 0.81 MV PHT: 55 ms MR Vmax: 5.14 m/s MR maxP.63 mmHg AV Vmax: 1.08 m/s AV maxP.63 mmHg TR Vmax: 2.58 m/s TR maxP.67 mmHg RAP: 5.00 mmHg RVSP: 31.67 mmHg FINDINGS -------- Sinus rhythm. This was a technically adequate study. The left ventricular size is normal. Left ventricular wall thickness is normal. Overall left vent ricular systolic function is low-normal with, an EF between 50 - 55 %. The diastolic filling patter n indicates impaired relaxation 13.30. Basal inferior LV wall motion is hypokinetic. Basal infer oseptal LV wall motion is hypokinetic. The right ventricle is normal in size. Normal LA size by volume 22+/-6 ml/m2. The right atrial size is normal. Interatrial and interventricular septum intact. The aortic valve is trileaflet, and appears structurally normal. No aortic stenosis or regurgitation. The mitral valve leaflets are mildly thickened. [id number] mitral regurgitation is present. The tricuspid valve appears structurally normal. Mild tricuspid regurgitation present. Right vent ricular systolic pressure is normal at < 35 mmHg. There is no pulmonic regurgitation present. The aortic root size is normal. Normal inferior vena cava with normal inspiratory collapse consistent with estimated right atrial pre ssure of 5 mmHg. There is no pericardial effusion. CONCLUSIONS -------- 1. Left ventricular wall thickness is normal. 2. Overall left ventricular systolic function is low-normal with, an EF between 50 - 55 %. 3. The diastolic filling pattern indicates impaired relaxation 13.30.. 4. Basal inferior LV wall motion is hypokinetic. 5. Basal inferoseptal LV wall motion is hypokinetic. 6. Normal LA size by volume 22+/-6 ml/m2. 7. The aortic valve is trileaflet, and appears structurally normal. No aortic stenosis or regurgitati on. 8. The mitral valve leaflets are mildly thickened. 9. [id number] mitral regurgitation is present. 10. Mild tricuspid regurgitation present. RECONCILIATION COORDINATOR: Joi Christian RDCS
[2019-10-23] MEDS ORDERED: FAMOTIDINE 20 MG TAB PO SCH (21:00)
== END 2019-10-23 14:55 | disposition home or self-care (01) ==
LOC: EC 18:06 → 3NCARDOBS 21:25
PROVIDERS: ADMIT Internal Medicine; ATTEND Internal Medicine
DX: S00.81XA Abrasion of other part of head, initial encounter (principal); V47.5XXA Car driver injured in collision with fixed or stationary object in traffic accident, initial encounter; R74.0 Nonspecific elevation of levels of transaminase and lactic acid dehydrogenase [LDH]; I16.0 Hypertensive urgency; F10.10 Alcohol abuse, uncomplicated; R50.9 Fever, unspecified; Z53.29 Procedure and treatment not carried out because of patient's decision for other reasons; R51 Headache; M87.9 Osteonecrosis, unspecified; G40.909 Epilepsy, unspecified, not intractable, without status epilepticus; G93.89 Other specified disorders of brain; E87.1 Hypo-osmolality and hyponatremia; Z85.841 Personal history of malignant neoplasm of brain; I86.2 Pelvic varices; Z87.891 Personal history of nicotine dependence; Z79.899 Other long term (current) drug therapy; Y92.410 Unspecified street and highway as the place of occurrence of the external cause; Z87.09 Personal history of other diseases of the respiratory system; Z85.79 Personal history of other malignant neoplasms of lymphoid, hematopoietic and related tissues
CPT/HCPCS: 93005 ×2; 96375; 90471; 96374; 99285; 36415; 93306; 80053; 80048; 80076; 83735; 84484; 85025 ×2; 85610; 81001; 80306; 80320; 71046; 72125; 70450; 74177; 90715; G0378 ×2; Q9967

== ENCOUNTER → 2021-07-19 | Outpatient (CLI) | payer OTHER ==
--- NOTE | 2021-07-19 22:00 | BD ---
EXAMINATION TYPE: Axial Bone Density DATE OF EXAM: 07/19/2021 COMPARISON: NONE CLINICAL HISTORY: 61 years year old Female. ICD-10 CODE: Z13.820 SCREENING FOR OSTEOPOROSIS Height: 62 IN Weight: 130 LBS RISK FACTORS HISTORY OF: Active: YES Diet low in dairy products/other sources of calcium: YES Postmenopausal woman: AGE 49 MEDICATIONS: Additional Medications: CALCIUM, VIT D, FOLIC ACID, AMLODIPINE, METOPROLOL, DIVALPROEX EXAM MEASUREMENTS: Bone mineral densitometry was performed using the [employer] System. Bone mineral density as measured about the Lumbar spine is: ----- L1-L4(G/cm2): 0.943 T Score Values are as follows: ----- L1: -2.7 ----- L2: -2.7 ----- L3: -1.2 ----- L4: -1.7 ----- L1-L4: -2.0 Bone mineral density BASELINE Bone mineral density about the R hip (g/cm2): 0.703 Bone mineral density about the L hip (g/cm2): 0.741 T Score values are as follows: -----R Neck: -2.4 -----L Neck: -2.1 -----R Total: -2.2 -----L Total: -2.4 Bone mineral density BASELINE FRAX%s: The graph provided illustrates a 11.2 chance for a major osteoporotic fx and a 2.1 chance for the hips probability for fx in 10 years time. IMPRESSION: Osteopenia (T Score between -2.5 and -1). Note that measurements suggest osteoporosis if L1 and L2 ar e considered in isolation. Both hips are also approaching osteoporosis. There is slightly increased risk of fracture and the patient may be considered for treatment. Re-Screen 2-5 years. NOTE: T-SCORE=SD OF THE YOUNG ADULT MEAN.
--- NOTE | 2021-07-20 12:47 | MM ---
Reason for exam: screening (asymptomatic). Physical Findings: A clinical breast exam by your physician is recommended on an annual basis and results should be correlated with mammographic findings. MG Screening Mammo w CAD Bilateral CC and MLO view(s) were taken. No prior studies available for comparison. The breast tissue is heterogeneously dense. This may lower the sensitivity of mammography. There is no discrete abnormality. No significant changes when compared with prior studies. ASSESSMENT: Negative, BI-RAD 1 RECOMMENDATION: Routine screening mammogram of both breasts in 1 year.
== END | disposition home or self-care (01) ==
LOC: RADMAMWWP 14:59
PROVIDERS: ATTEND Family Medicine
DX: Z12.31 Encounter for screening mammogram for malignant neoplasm of breast (principal); M81.0 Age-related osteoporosis without current pathological fracture; Z78.0 Asymptomatic menopausal state
CPT/HCPCS: 77067; 77080

== ENCOUNTER → 2021-11-15 | Outpatient (CLI) | payer OTHER ==
[2021-11-15 17:55] LABS: HCT 41.3 % (37.2-46.3); HGB 14.3 g/dL (12.0-15.0); MCH 33.9 pg (27.0-32.0); MCHC 34.6 g/dL (32.0-37.0); MCV 97.9 fL (80.0-97.0); Mean Platelet Volume 11.4 fL (9.5-12.2); NRBC Per 100 WBC 0 /100 WBCS (0.0-0.0); Platelet Count 271 X 10*3/uL (140-440); RBC 4.22 X 10*6/uL (4.10-5.20); RDW 11.9 % (11.5-14.5); WBC 7.12 X 10*3/uL (4.50-10.00)
[2021-11-15 19:23] LABS: African American GFR (CKD) 113.5 (60.0-200.0); Albumin/Globulin Ratio 2.02 (1.60-3.17); Anion Gap 12.8 mmol/L (10.00-18.00); BUN/Creat Ratio 9.37 Ratio (12.00-20.00); Blood Urea Nitrogen 5.8 mg/dL (9.0-27.0); Calcium 10.1 mg/dL (8.7-10.3); Carbon Dioxide 27.7 mmol/L (20.0-27.5); Globulin 2.5 g/dL (1.6-3.3); Total Bilirubin 0.5 mg/dL (0.30-1.20); Total Protein 7.5 g/dL (6.2-8.2)
== END | disposition home or self-care (01) ==
LOC: LABWHC1 12:32
PROVIDERS: ATTEND Psychiatry & Neurology Neurology
DX: R41.3 Other amnesia (principal)
CPT/HCPCS: 36415; 80053; 82306; 82607; 84207; 85027

== ENCOUNTER → 2022-11-18 | Outpatient (CLI) | payer OTHER ==
[2022-11-18 17:31] LABS: Blood Urea Nitrogen 5.7 mg/dL (9.0-27.0); Calcium 9.8 mg/dL (8.7-10.3); Chloride 96 mmol/L (96-109); Glucose 89 mg/dL (70-110); Potassium 4.7 mmol/L (3.5-5.5); Sodium 135 mmol/L (135-145)
== END | disposition home or self-care (01) ==
LOC: LABWHC1 10:20
PROVIDERS: ATTEND Internal Medicine Interventional Cardiology
DX: I10 Essential (primary) hypertension (principal); E78.2 Mixed hyperlipidemia
CPT/HCPCS: 36415; 80048

== ENCOUNTER → 2023-05-28 | Outpatient (CLI) | payer BC ==
[2023-05-28 17:30] LABS: ALT 27 U/L (8-44); AST 29 U/L (13-35); Albumin 4.8 g/dL (3.8-4.9); Albumin/Globulin Ratio 1.92 Ratio (1.60-3.17); Alkaline Phosphatase 94 U/L (41-126); Calcium 9.8 mg/dL (8.7-10.3); Carbon Dioxide 28.2 mmol/L (21.6-31.8); Chloride 97 mmol/L (96-109); Chol/HDL Ratio 2.28 Ratio; Globulin 2.5 g/dL (1.6-3.3); Glucose 84 mg/dL (70-110); LDL Cholesterol,Calculated 123.6 mg/dL (0.0-131.0); Potassium 4.6 mmol/L (3.5-5.5); Sodium 133 mmol/L (135-145); Total Bilirubin 0.3 mg/dL (0.3-1.2); Total Protein 7.3 g/dL (6.2-8.2); VLDL Calculation 16.42 mg/dL (5.00-40.00)
== END | disposition home or self-care (01) ==
LOC: LABWHC1 10:14
PROVIDERS: ATTEND Internal Medicine Interventional Cardiology
DX: E78.2 Mixed hyperlipidemia (principal)
CPT/HCPCS: 36415; 80053; 80061